=== PATIENT | male | born 1955 | race Caucasian/White ===

== ENCOUNTER 2020-01-10 20:58 | Emergency (ER) | payer MEDICARE, OTHER ==
[2020-01-10] MEDS: Sodium Chloride 0.9% 1,000 ML IV ONE ×2 (21:30→23:55)
[2020-01-10] MEDS: Ondansetron 4 MG/2 ML SDV IVPUSH ONE (21:31)
[2020-01-10] MEDS: cefTRIAXone 1 GM in Sodium Chloride 0.9% 100 ML IV ONE (23:10)
--- NOTE | 2020-01-10 23:46 | EDM.PDOC ---
ED HPI GENERAL MEDICAL PROBLEM - General Chief Complaint: General Stated Complaint: NAUSEA, FEVER Time Seen by Provider: 01/10/20 21:01 Source of Information: Reports: Patient, EMS History Limitations: Reports: No Limitations - History of Present Illness INITIAL COMMENTS - FREE TEXT/NARRATIVE: Pt presents with fever, N/V/D and upper abdominal pain for past 3 days Pt worse tonight Fever to 101 per EMS Afebrile in ER Pt states pain extends into back No chest pain No cough No SOB No previous hx/o same No travel hx No dysuria No trauma Onset: Gradual Duration: Day(s): Location: Reports: Abdomen Quality: Reports: Dull Severity: Moderate Associated Symptoms: Reports: Fever/Chills, Nausea/Vomiting, Other (Diarrhea) Treatments [employer]TAIN: Reports: Acetaminophen - Related Data Allergies Allergy/AdvReac Type Severity Reaction Status Date / Time Penicillins Allergy Swelling Verified 01/10/20 21:24 Home Meds: Home Meds Gabapentin [Neurontin] 600 mg PO 5XDAY 08/06/16 [History] Multivitamin [Daily Multiple Vitamin] 1 tab PO DAILY 08/06/16 [History] Simvastatin [Zocor] 20 mg PO BEDTIME 08/06/16 [History] oxyCODONE HCl [Oxycodone HCl] 5 mg PO Q6HR PRN 08/06/16 [History] Nitroglycerin [IJP: Nitroglycerin] 0.4 mg SL ASDIRECTED PRN #30 tablet, sublingual 08/09/16 [Rx] Cholecalciferol (Vitamin D3) [Vitamin D3] 1,000 unit PO DAILY 01/10/20 [History] Losartan Potassium 100 mg PO DAILY 01/10/20 [History] Mecobalamin [B12 Active] 1,000 mcg PO DAILY 01/10/20 [History] Meloxicam [Mobic] 7.5 mg PO BID PRN 01/10/20 [History] Metoprolol Tartrate [Lopressor] 50 mg PO BID 01/10/20 [History] Non-Formulary Medication [NF Drug] 0.5 each SQ WEEKLY 01/10/20 [History] [place]-3S/DHA/Epa/Fish Oil [[place]-3 Fish Oil 1,000 mg Sfgl] 1 each PO BID [History] Omeprazole 20 mg PO DAILY 01/10/20 [History] Pramipexole [Mirapex] 0.25 mg PO BID 01/10/20 [History] Primidone 50 mg PO BEDTIME 01/10/20 [History] hydrOXYzine HCL [Hydroxyzine HCl] 25 mg PO Q6HR PRN 01/10/20 [History] Past Medical History HEENT History: Reports: Impaired Vision, Sinusitis Cardiovascular History: Reports: High Cholesterol, Hypertension Respiratory History: Reports: Sleep Apnea Gastrointestinal History: Reports: Diverticulosis, GERD Musculoskeletal History: Reports: Arthritis, Back Pain, Chronic Neurological History: Reports: Neuropathy, Diabetic, Other (See Below) Other Neuro History: neuropathy fingers, toes, feet Endocrine/Metabolic History: Reports: Diabetes, Type II, Obesity/BMI 30+ - Past Surgical History HEENT Surgical History: Reports: Tonsillectomy GI Surgical History: Reports: Colonoscopy Male Surgical History: Reports: Other (See Below) Musculoskeletal Surgical History: Reports: Knee Replacement, Other (See Below) Other Musculoskeletal Surgeries/Procedures:: bilat knee replacements, arthritis in bilat shoulders, back pain, R thumb tendon repair Social & Family History - Tobacco Use Smoking Status *Q: Never Smoker Second Hand Smoke Exposure: No - Caffeine Use Caffeine Use: Reports: None - Alcohol Use Days Per Week of Alcohol Use: 7 Number of Drinks Per Day: 6 Total Drinks Per Week: 42 - Recreational Drug Use Recreational Drug Use: No ED ROS GENERAL - Review of Systems Review Of Systems: See Below Constitutional: Reports: Fever HEENT: Reports: No Symptoms Respiratory: Reports: No Symptoms Cardiovascular: Reports: No Symptoms GI/Abdominal: Reports: Abdominal Pain, Diarrhea, Nausea, Vomiting : Reports: No Symptoms Skin: Reports: No Symptoms Neurological: Reports: No Symptoms ED EXAM, GENERAL - Physical Exam Exam: See Below Exam Limited By: No Limitations General Appearance: Moderate Distress Ear Exam: Bilateral Ear: Other (No icterus) Throat/Mouth: Normal Oropharynx Neck: Supple Respiratory/Chest: Lungs Clear Cardiovascular: Regular Rate, Rhythm GI/Abdominal: Soft, Tender (Tender across upper abdomen No rebound No guarding Mildly distended) Neurological: Alert, Oriented Course - Vital Signs Last Recorded V/S: Last Vital Signs Temp 98 F 01/10/20 23:17 Pulse 103 H 01/10/20 23:17 Resp 20 01/10/20 23:17 BP 133/82 05/05/20 23:17 Pulse Ox 98 01/10/20 23:17 - Orders/Labs/Meds Orders: Active Orders 24 hr Category Date Time Status Abdomen Pelvis wo Cont [CT] Stat Exams 01/10/20 21:56 Taken Chest 1V Frontal [CR] Stat Exams 01/10/20 21:01 Taken CULTURE BLOOD [BC] Stat Lab 01/10/20 21:01 Ordered CULTURE BLOOD [BC] Stat Lab 01/10/20 21:01 Ordered UA RFX LAKISHA AND CULT IF INDIC [URIN] Stat Lab 01/10/20 21:02 Ordered Sodium Chloride 0.9% [Normal Saline] 1,000 ml Med 01/10/20 23:38 Ordered IV .BOLUS Blood Culture x2 Reflex Set [OM.PC] Stat Oth 01/10/20 21:01 Ordered Labs: Laboratory Tests 01/10/20 01/10/20 01/10/20 Range/Units 21:05 21:05 21:05 WBC 10.2 (4.0-10.2) K/uL RBC 3.71 L (4.33-5.41) M/uL Hgb 12.6 L (13.1-16.8) g/dL Hct 37.5 L (39.0-49.0) % MCV 101.1 H (84.0-98.0) fL MCH 34.0 H (28.2-33.3) pg MCHC 33.6 (31.7-36.0) g/dL RDW 13.3 (11.2-14.1) % Plt Count 195 (150-350) K/uL Neut % (Auto) 86.3 H (45.0-80.0) % Lymph % (Auto) 7.8 L (10.0-50.0) % [place] % (Auto) 5.5 (2.0-14.0) % Eos % (Auto) 0.2 (0.0-5.0) % Baso % (Auto) 0.2 (0.0-2.0) % Neut # (Auto) 8.82 H (1.40-7.00) K/uL Lymph # (Auto) 0.80 (0.50-3.50) K/uL [place] # (Auto) 0.56 (0.00-1.00) K/uL Eos # (Auto) 0.02 (0.00-0.50) K/uL Baso # (Auto) 0.02 (0.00-0.20) K/uL Sodium 130 L (136-145) mmol/L Potassium 4.3 (3.5-5.1) mmol/L Chloride 93 L (98-107) mmol/L Carbon Dioxide 19.9 L (21.0-32.0) mmol/L BUN 10 (7-18) mg/dL Creatinine 1.33 H (0.51-1.17) mg/dL Est Cr Clr Drug Dosing 61.59 mL/min Estimated GFR (MDRD) 54 mL/min Glucose 612 H* (74-106) mg/dL Lactic Acid 7.1 H (0.4-2.0) mmol/L Calcium 8.4 L (8.5-10.1) mg/dL Total Bilirubin 3.8 H (0.2-1.0) mg/dL AST 280 H (15-37) U/L ALT 148 H (12-78) U/L Alkaline Phosphatase 151 H (46-116) IU/L Total Protein 6.4 (6.4-8.2) g/dL Albumin 2.8 L (3.4-5.0) g/dL Meds: Medications Discontinued Medications Generic Name Dose Route Start Last Admin Trade Name Garrettq PRN Reason Stop Dose Admin Sodium Chloride 1,000 mls @ 1,000 mls/hr 01/10/20 21:02 01/10/20 21:30 Normal Saline IV 01/10/20 22:01 1,000 mls/hr .BOLUS ONE Administration Ceftriaxone Sodium 1 gm/ 100 mls @ 200 mls/hr 01/10/20 23:04 01/10/20 23:10 Sodium Chloride IV 01/10/20 23:33 200 mls/hr ONETIME ONE Administration Ondansetron HCl 4 mg 01/10/20 21:11 01/10/20 21:31 Zofran IVPUSH 01/10/20 21:12 4 mg ONETIME ONE Administration - Re-Assessments/Exams Free Text/Narrative Re-Assessment/Exam: 01/10/20 23:44 See lab Elevated LFT's and elevated lactic acid CT: Acute cholecystitis Pt given IVF and 1 gm IV Rocephin in ER D/W Dr Young On-call hospitalist [facility] Will accept in transfer Transfer via EMS Departure - Departure Time of Disposition: 23:45 Disposition: DC/[facility]fer to [facility] 02 Clinical Impression: Acute cholecystitis - Discharge Information Referrals: PCP,Unknown [Primary Care Provider] - Sepsis Event Note - Evaluation Sepsis Screening Result: Possible Sepsis Risk - Focused Exam Vital Signs: Vital Signs Temp Pulse Resp BP Pulse Ox 01/10/20 23:17 98 F 103 H 20 133/82 98 01/10/20 23:00 104 H 22 H 116/97 H 98 01/10/20 22:20 102 H 22 H 153/82 H 97 01/10/20 21:55 102 H 20 133/78 96 01/10/20 21:40 104 H 18 129/79 95 01/10/20 21:20 98 F 106 H 18 127/72 96 01/10/20 21:00 99 F 110 H 18 140/80 95 Date Exam was Performed: 01/10/20 Time Exam was Performed: 23:39 - My Orders Last 24 Hours: My Active Orders 01/10/20 21:01 Chest 1V Frontal [CR] Stat CULTURE BLOOD [BC] Stat CULTURE BLOOD [BC] Stat Blood Culture x2 Reflex Set [OM.PC] Stat 01/10/20 21:02 UA RFX LAKISHA AND CULT IF INDIC [URIN] Stat 01/10/20 21:56 Abdomen Pelvis wo Cont [CT] Stat 01/10/20 23:38 Sodium Chloride 0.9% [Normal Saline] 1,000 ml IV .BOLUS - Assessment/Plan Last 24 Hours: My Active Orders 01/10/20 21:01 Chest 1V Frontal [CR] Stat CULTURE BLOOD [BC] Stat CULTURE BLOOD [BC] Stat Blood Culture x2 Reflex Set [OM.PC] Stat 01/10/20 21:02 UA RFX LAKISHA AND CULT IF INDIC [URIN] Stat 01/10/20 21:56 Abdomen Pelvis wo Cont [CT] Stat 01/10/20 23:38 Sodium Chloride 0.9% [Normal Saline] 1,000 ml IV .BOLUS
[2020-01-10 23:57] VITALS: BP 125/73; PULSE 102
[2020-01-11] MEDS: HYDROmorphone 1 MG/ML Syringe IVPUSH ONE (00:27)
== END 2020-01-11 00:35 ==
LOC: SUPCPDRO 20:58 → LL.ED 20:58
DX: K81.0 Acute cholecystitis (principal); E78.00 Pure hypercholesterolemia, unspecified; I10 Essential (primary) hypertension; K21.9 Gastro-esophageal reflux disease without esophagitis; E11.9 Type 2 diabetes mellitus without complications; E66.9 Obesity, unspecified; E11.40 Type 2 diabetes mellitus with diabetic neuropathy, unspecified; Z68.41 Body mass index [BMI] 40.0-44.9, adult; Z88.0 Allergy status to penicillin
CPT/HCPCS: 36415; 71045; 74176; 80053; 81003; 83605; 85025; 96361; 96365; 96375; 99285-25; J0696; J1170; J2405; J7030; J7050

== ENCOUNTER 2020-06-27 18:52 | Emergency (ER) | payer MEDICARE, BC ==
[2020-06-27 18:56] VITALS: BP 151/73; PULSE 74
[2020-06-27] MEDS ORDERED: Sodium Chloride 0.9% 1,000 ML IV ONE (18:57)
[2020-06-27] MEDS ORDERED: Ondansetron 4 MG/2 ML SDV IVPUSH ONE (18:57)
[2020-06-27] MEDS ORDERED: Morphine 2 MG/ML SYRINGE IVPUSH ONE (19:24)
[2020-06-27 19:45] LABS: CHLORIDE,CL 93 mmol/L (98-107); SODIUM,NA 135 mmol/L (136-145)
[2020-06-27] MEDS ORDERED: Calcium Gluconate 10% 1 GM/10 ML SDV IVPUSH ONE (19:57)
--- NOTE | 2020-06-27 20:28 | EDM.PDOC ---
ED HPI GENERAL MEDICAL PROBLEM - General Chief Complaint: General Stated Complaint: fatigue, diarrhea, nausea Time Seen by Provider: 06/27/20 19:05 Source of Information: Reports: Patient History Limitations: Reports: No Limitations - History of Present Illness INITIAL COMMENTS - FREE TEXT/NARRATIVE: Pt presents to ER with fatigue, weakness and diarrhea Pt has had weakness for several weeks Was started on Gabapentin recently Diarrhea over past several days No fever No cough No chest pain Onset: Gradual Duration: Day(s):, Getting Worse Location: Reports: Abdomen, Generalized Bilateral Lower Leg Pain Score (Numeric/FACES): 10 - Related Data Allergies Allergy/AdvReac Type Severity Reaction Status Date / Time Penicillins Allergy Swelling Verified 01/10/20 21:24 Home Meds: Home Meds Gabapentin [Neurontin] 600 mg PO 08/06/16 [History] Multivitamin [Daily Multiple Vitamin] 1 tab PO DAILY 08/06/16 [History] Simvastatin [Zocor] 20 mg PO BEDTIME 08/06/16 [History] oxyCODONE HCl [Oxycodone HCl] 5 mg PO Q6HR PRN 08/06/16 [History] Nitroglycerin [IJP: Nitroglycerin] 0.4 mg SL ASDIRECTED PRN #30 tablet, sublingual 08/09/16 [Rx] Cholecalciferol (Vitamin D3) [Vitamin D3] 1,000 unit PO DAILY 01/10/20 [History] Losartan Potassium 100 mg PO DAILY 01/10/20 [History] Mecobalamin [B12 Active] 1,000 mcg PO DAILY 01/10/20 [History] Meloxicam [Mobic] 7.5 mg PO BID PRN 01/10/20 [History] Metoprolol Tartrate [Lopressor] 50 mg PO BID 01/10/20 [History] Non-Formulary Medication [NF Drug] 0.5 each SQ WEEKLY 01/10/20 [History] [place]-3S/DHA/Epa/Fish Oil [[place]-3 Fish Oil 1,000 mg Sfgl] 1 each PO BID 01/10/20 [History] Omeprazole 20 mg PO DAILY 01/10/20 [History] Pramipexole [Mirapex] 0.25 mg PO BID 01/10/20 [History] Primidone 50 mg PO BEDTIME 01/10/20 [History] hydrOXYzine HCL [Hydroxyzine HCl] 25 mg PO Q6HR PRN 01/10/20 [History] Past Medical History HEENT History: Reports: Impaired Vision, Sinusitis Cardiovascular History: Reports: High Cholesterol, Hypertension Respiratory History: Reports: Sleep Apnea Gastrointestinal History: Reports: Diverticulosis, GERD Musculoskeletal History: Reports: Arthritis, Back Pain, Chronic Neurological History: Reports: Neuropathy, Diabetic, Other (See Below) Other Neuro History: neuropathy fingers, toes, feet Endocrine/Metabolic History: Reports: Diabetes, Type II, Obesity/BMI 30+ - Past Surgical History HEENT Surgical History: Reports: Tonsillectomy GI Surgical History: Reports: Colonoscopy Male Surgical History: Reports: Other (See Below) Musculoskeletal Surgical History: Reports: Knee Replacement, Other (See Below) Other Musculoskeletal Surgeries/Procedures:: bilat knee replacements, arthritis in bilat shoulders, back pain, R thumb tendon repair Social & Family History - Caffeine Use Caffeine Use: Reports: None ED ROS GENERAL - Review of Systems Review Of Systems: See Below Constitutional: Reports: Malaise, Weakness, Fatigue HEENT: Reports: No Symptoms Respiratory: Reports: No Symptoms Cardiovascular: Reports: No Symptoms Endocrine: Reports: Fatigue GI/Abdominal: Reports: Abdominal Pain, Diarrhea Musculoskeletal: Reports: No Symptoms Skin: Reports: No Symptoms Neurological: Reports: Weakness ED EXAM, GENERAL - Physical Exam Exam: See Below Exam Limited By: No Limitations General Appearance: Alert, WD/WN, Mild Distress Throat/Mouth: Normal Oropharynx Neck: Supple Respiratory/Chest: Lungs Clear Cardiovascular: Regular Rate, Rhythm GI/Abdominal: Soft, Other (Mildly tender diffusely) Extremities: Pedal Edema Neurological: No Motor/Sensory Deficits Psychiatric: Normal Affect, Normal Mood Course - Vital Signs Last Recorded V/S: Last Vital Signs Temp 96.7 F L 06/27/20 18:54 Pulse 74 06/27/20 18:54 Resp 14 06/27/20 18:54 BP 151/73 H 06/27/20 18:54 Pulse Ox 99 06/27/20 18:54 - Orders/Labs/Meds Orders: Active Orders 24 hr Category Date Time Status CXR [Chest 1V Frontal] [CR] Stat Exams 06/27/20 18:58 Taken Isolation [COMM] Routine Oth 06/27/20 18:58 Active Labs: Laboratory Tests 10/21/20 10/21/20 Range/Units 19:25 19:25 WBC 6.8 (4.0-10.2) K/uL RBC 4.28 L (4.33-5.41) M/uL Hgb 12.6 L (13.1-16.8) g/dL Hct 37.2 L (39.0-49.0) % MCV 86.9 D (84.0-98.0) fL MCH 29.4 (28.2-33.3) pg MCHC 33.9 (31.7-36.0) g/dL RDW 18.4 H (11.2-14.1) % Plt Count 225 (150-350) K/uL Neut % (Auto) 65.7 (45.0-80.0) % Lymph % (Auto) 25.0 (10.0-50.0) % [place] % (Auto) 8.5 (2.0-14.0) % Eos % (Auto) 0.4 (0.0-5.0) % Baso % (Auto) 0.4 (0.0-2.0) % Neut # (Auto) 4.48 (1.40-7.00) K/uL Lymph # (Auto) 1.71 (0.50-3.50) K/uL [place] # (Auto) 0.58 (0.00-1.00) K/uL Eos # (Auto) 0.03 (0.00-0.50) K/uL Baso # (Auto) 0.03 (0.00-0.20) K/uL Sodium 135 L (136-145) mmol/L Potassium 3.8 (3.5-5.1) mmol/L Chloride 93 L (98-107) mmol/L Carbon Dioxide 28.9 (21.0-32.0) mmol/L BUN 8 (7-18) mg/dL Creatinine 1.06 (0.51-1.17) mg/dL Est Cr Clr Drug Dosing 76.26 mL/min Estimated GFR (MDRD) > 60 mL/min Glucose 116 H (74-106) mg/dL Calcium 6.7 L D (8.5-10.1) mg/dL Total Bilirubin 0.6 (0.2-1.0) mg/dL AST 74 H (15-37) U/L ALT 51 (12-78) U/L Alkaline Phosphatase 201 H (46-116) IU/L Total Protein 6.9 (6.4-8.2) g/dL Albumin 3.1 L (3.4-5.0) g/dL Meds: Medications Discontinued Medications Generic Name Dose Route Start Last Admin Trade Name Carlos PRN Reason Stop Dose Admin Calcium Gluconate 1 gm 06/27/20 19:57 06/27/20 20:09 Calcium Gluconate IVPUSH 06/27/20 19:58 1 gm ONETIME ONE Administration Sodium Chloride 1,000 mls @ 999 mls/hr 06/27/20 18:57 06/27/20 19:15 Normal Saline IV 06/27/20 19:57 999 mls/hr .BOLUS ONE Administration Morphine Sulfate 2 mg 06/27/20 19:24 06/27/20 19:34 Morphine IVPUSH 06/27/20 19:25 2 mg ONETIME ONE Administration Ondansetron HCl 8 mg 06/27/20 18:57 06/27/20 19:15 Zofran IVPUSH 06/27/20 18:58 8 mg ONETIME ONE Administration - Re-Assessments/Exams Free Text/Narrative Re-Assessment/Exam: 06/27/20 20:25 See lab Pt given IVF and IV Calcium Pt does not desire admit at this time Pt to recheck in clinic to recheck status and calcium Departure - Departure Time of Disposition: 20:30 Disposition: Home, Self-Care 01 Clinical Impression: Hypocalcemia Diarrhea Qualifiers: Diarrhea type: unspecified type Qualified Code(s): R19.7 - Diarrhea, unspecified - Discharge Information *PRESCRIPTION DRUG MONITORING PROGRAM REVIEWED*: Not Applicable *COPY OF PRESCRIPTION DRUG MONITORING REPORT IN PATIENT MARIO: Not Applicable Instructions: Diarrhea, Adult, Hypocalcemia, Adult Additional Instructions: Follow up in clinic in 1-2 days To ER if worse Await Covid testing Sepsis Event Note (ED) - Evaluation Sepsis Screening Result: No Definite Risk - Focused Exam Vital Signs: Vital Signs Temp Pulse Resp BP Pulse Ox 06/27/20 18:54 96.7 F L 74 14 151/73 H 99 - My Orders Last 24 Hours: My Active Orders 06/27/20 18:58 CXR [Chest 1V Frontal] [CR] Stat Isolation [COMM] Routine - Assessment/Plan Last 24 Hours: My Active Orders 06/27/20 18:58 CXR [Chest 1V Frontal] [CR] Stat Isolation [COMM] Routine
[2020-06-27] MEDS ORDERED: Calcium Carbonate 500 MG Tab.Chew PO ONE (20:29)
== END 2020-06-27 21:20 | disposition home or self-care (01) ==
LOC: LL.ED 18:52
DX: E83.51 Hypocalcemia (principal); R19.7 Diarrhea, unspecified; E78.00 Pure hypercholesterolemia, unspecified; I10 Essential (primary) hypertension; K21.9 Gastro-esophageal reflux disease without esophagitis; E11.40 Type 2 diabetes mellitus with diabetic neuropathy, unspecified; M19.90 Unspecified osteoarthritis, unspecified site; E66.9 Obesity, unspecified; Z88.0 Allergy status to penicillin; Z79.899 Other long term (current) drug therapy; Z20.828 Contact with and (suspected) exposure to other viral communicable diseases
CPT/HCPCS: 36415; 71045; 80053; 85025; 87804; 96374; 96375; 99285; A9270; J0610; J2270; J2405; J7030; U0002; 99283

== ENCOUNTER 2020-10-29 18:30 | Inpatient (IN) | payer MEDICARE, BC ==
[~2020-10-29 18:30] MED LIST: Iopamidol 755 Mg/ML 100 ML Bottle IVPUSH ONE
[2020-10-29] MEDS ORDERED: Ticagrelor 90 MG Tab PO ONE (18:39)
[2020-10-29] MEDS ORDERED: Aspirin 81 MG Tab.Chew CHEW ONE (18:39)
[2020-10-29] MEDS ORDERED: Famotidine 20 MG/2 ML SDV IVPUSH ONE (18:39)
--- NOTE | 2020-10-29 18:39 | EDM.PDOC ---
ED HPI GENERAL MEDICAL PROBLEM - General Chief Complaint: Cardiovascular Problem Stated Complaint: SOB, weak Time Seen by Provider: 10/29/20 18:30 Source of Information: Reports: Patient, Family (), Old Records ([facility] chart/EMR) History Limitations: Reports: No Limitations - History of Present Illness INITIAL COMMENTS - FREE TEXT/NARRATIVE: The patient was brought to the emergency room via private automobile by his for evaluation of a 3-week history of increasing weakness and progressive dyspnea over the last 3-4 weeks. He also complains of 3/10 left-sided chest pressure with no history of radiation during the last few days. Possible additional mild left-sided rib pain secondary to a minor fall in his bathroom about 3 weeks ago with dyspnea starting prior to this fall. He has not taken any medications for her symptoms to this point. The patient denies any heart flutter, dizziness, orthostasis, orthopnea, diaphoresis,or any other anginal- type symptoms, although some recent decreased exercise tolerance secondary to his dyspnea above with low baseline activity level. No recent history of abdominal pain, heartburn, nausea, diarrhea, melena, gross hematochezia, or any food intolerance, including fatty foods, etc. with normal bowel movement earlier today. He denies any gross hematuria, colic, or other UTI symptoms. The patient also denies any recent fever, cough, wheezing, etc.. Onset: Gradual Duration: Week(s): (As above), Getting Worse Location: Reports: Chest. Denies: Head, Face, Neck, Abdomen, Back, Pelvis, Upper Extremity, Left, Upper Extremity, Right, Radiates to Quality: Reports: Pressure, Same as Previous Episode Severity: Mild Improves with: Reports: Rest Worsens with: Reports: Movement (Activity). Denies: Breathing Context: Reports: Trauma (Minor as above), Other (As above). Denies: Sick Contact Associated Symptoms: Reports: Chest Pain, Shortness of Breath, Weakness. Denies: Confusion, Cough, cough w sputum, Diaphoresis, Fever/Chills, Headaches, Loss of Appetite, Malaise, Nausea/Vomiting, Rash, Seizure, Syncope Treatments REGISTRATION REPRESENTATIVE: Reports: Other (see below) (None) Left Chest Pain Score (Numeric/FACES): 3 - Related Data Allergies Allergy/AdvReac Type Severity Reaction Status Date / Time Penicillins Allergy Swelling Verified 10/29/20 18:36 Home Meds: Home Meds Multivitamin [Daily Multiple Vitamin] 1 tab PO DAILY 08/06/16 [History] Simvastatin [Zocor] 20 mg PO BEDTIME 08/06/16 [History] oxyCODONE HCl [Oxycodone HCl] 5 mg PO Q6HR PRN 08/06/16 [History] Nitroglycerin [IJP: Nitroglycerin] 0.4 mg SL ASDIRECTED PRN #30 tablet, sublingual 08/09/16 [Rx] Losartan Potassium 100 mg PO DAILY 01/10/20 [History] Mecobalamin [B12 Active] 1,000 mcg PO DAILY 01/10/20 [History] Metoprolol Tartrate [Lopressor] 50 mg PO Q12HR 01/10/20 [History] Notrees-3S/DHA/Epa/Fish Oil [Notrees-3 Fish Oil 1,000 mg Sfgl] 1 each PO Q12HR 01/10/20 [History] Omeprazole 20 mg PO Q12HR 01/10/20 [History] Pramipexole [Mirapex] 0.25 mg PO Q12HR 01/10/20 [History] Primidone 50 mg PO Q12HR 01/10/20 [History] hydrOXYzine HCL [Hydroxyzine HCl] 25 mg PO Q6HR PRN 01/10/20 [History] Gabapentin [Neurontin] 600 mg PO 5XDAY@00,08,12,16,20 10/29/20 [History] metFORMIN [Glucophage] 3 tab PO DAILY 10/29/20 [History] Past Medical History HEENT History: Reports: Impaired Vision, Sinusitis, Other (See Below). Denies: Allergic Rhinitis, Cataract, Glaucoma, Hard of Hearing, Macular Degeneration, Retinal Detachment Other HEENT History: Patient wears reading glasses. No diabetic retinopathy. Chronic bilateral tinnitus. Cardiovascular History: Reports: Arrhythmia, CAD, Cardiomyopathy, Heart Failure, High Cholesterol, Hypertension, [place], Syncope, Other (See Below). Denies: Afib, Aneurysm, Blood Clots/VTE/DVT, Bypass, Heart Murmur, Pacemaker, PTCA, Pulmonary Hypertension, PVD, Stents Other Cardiovascular History: First-degree AV block. Non-STEMI on 08/07/2016 wi no procedures performed, including angiogram, etc.. Dyslipidemia. Recurrent syncopal episodes in 2016 possibly secondary to his heart disease as above. Respiratory History: Reports: Bronchitis, Recurrent, Intubation, Previous, Sleep Apnea, SOB, Other (See Below). Denies: Asthma, COPD, Intubation, Difficult, PE, Pneumonia, Recurrent, Pneumothorax, Pulmonary Fibrosis, TB Other Respiratory History: Patient does not use CPAP. Gastrointestinal History: Reports: Cholelithiasis, Colon Polyp, Diverticulosis, GERD, Other (See Below). Denies: Celiac Disease, Chronic Constipation, Chronic Diarrhea, Fecal Incontinence, Gastritis, GI Bleed, Hepatitis, Hiatal Hernia, Inflammatory Bowel Disease, Irritable Bowel Syndrome, Jaundice, Pancreatitis, PUD Other Gastrointestinal History: Chronic ascites. Necrotic cholelithiasis with borderline sepsis in January 2020. Recurrent multiple colonic polypsbenign?. Benign hepatic cysts by CT scan. Genitourinary History: Reports: BPH, Chronic Renal Insuffiency, Diabetic Nephropathy, Prostate Disorder, Urinary Incontinence. Denies: Acute Renal Failure, Renal Calculus, STD, UTI, Recurrent Musculoskeletal History: Reports: Arthritis, Back Pain, Chronic, Neck Pain, Chronic, Osteoarthritis. Denies: Amputation, Fracture, Gout, Osteoporosis, RA, SLE Neurological History: Reports: Neuropathy, Diabetic, Neuropathy, Peripheral, Other (See Below). Denies: Alzheimers Disease, Cerebral Aneurysms, Concussion, CVA, Headaches, Chronic, Head Trauma, Migraines, MS, Parkinson's, Seizure, TIA, Vertigo Other Neuro History: Benign resting tremor. Psychiatric History: Reports: Addiction, Anxiety, Depression, Other (See Below). Denies: Abuse, Victim of, ADD, ADHD, Dementia, Psych Hospitalization(s), PTSD, Suicide Attempt, Suicidal Ideation Other Psychiatric History: Chronic narcotic use secondary to chronic pain syndrome and neuropathy. Endocrine/Metabolic History: Reports: Diabetes, Type II, Obesity/BMI 30+, Other (See Below). Denies: Diabetes, Type I, Diabetes Mellitus, Type 3c, Hypothyroidism, IDDM, Osteopenia, Osteoporosis Other Endocrine/Metabolic History: Morbid obesity. Hypocalcemia. Hyponatremia. Hematologic History: Denies: Anemia, Blood Transfusion(s), Iron Deficiency Immunologic History: Reports: None. Denies: AIDS, HIV, SLE Oncologic (Cancer) History: Reports: None. Denies: Basal Cell Carcinoma, Colon, Hodgkin's Lymphoma, Leukemia, Lymphoma, Malignant Melanoma, Non-Hodgkin's Lymphoma, Prostate, Squamous Cell Carcinoma Dermatologic History: Reports: Other (See Below). Denies: Eczema, Psoriasis, Venous Stasis Dermatitis Other Dermatologic History: Dry skin - Infectious Disease History Infectious Disease History: Reports: Chicken Pox, Measles, Mumps. Denies: C-Difficile, Meningitis, Mononucleosis, MRSA, Novel Coronavirus, Pertussis (Whooping Cough), Rheumatic Fever, Rubella, Scarlet Fever, Shingles, TB, VRE - Past Surgical History Head Surgeries/Procedures: Reports: None HEENT Surgical History: Reports: Adenoidectomy, Oral Surgery, Tonsillectomy, Other (See Below). Denies: Cataract Surgery, Detached Retina, Eye Surgery, Laser Surgery, LASIK, Myringotomy w Tube(s), Naso-Sinus Surgery Other HEENT Surgeries/Procedures: [place] teeth extraction x4. Additional teeth extractions. Tonsillectomy and adenoidectomy at age 4. Cardiovascular Surgical History: Reports: None. Denies: Varicose Respiratory Surgical History: Reports: None. Denies: Lung Biopsies, Thoracentesis GI Surgical History: Reports: Cholecystectomy, Colonoscopy, Polypectomy, Other (See Below). Denies: Appendectomy, EGD, Hernia, Abdominal, Hernia, Inguinal, Hernia Repair/Other Other GI Surgeries/Procedures: Multiple polypectomies for benign disease with last colonoscopy in 2018. Male Surgical History: Reports: Circumcision, Other (See Below). Denies: TURP-Transurethral Resection of Prostate, Vasectomy Other Male Surgeries/Procedures: Circumcision as an infant. Bilateral hydrocele repair in about 2009. Endocrine Surgical History: Reports: None. Denies: Thyroid Biopsy Neurological Surgical History: Reports: None. Denies: C-Spine, Discectomy, Laminectomy, Lumbar Spine, Spinal Fusion, Thoracic Spine, Vertebroplasty Musculoskeletal Surgical History: Reports: Joint Replacement, Knee Replacement, Other (See Below). Denies: Arthroscopic Procedure, Carpal Tunnel, Ganglion Cyst, ORIF, Shoulder Surgery Other Musculoskeletal Surgeries/Procedures:: Bilateral TKA in 2014. Right thumb tendon repair in about 1979. Oncologic Surgical History: Reports: None Dermatological Surgical History: Reports: None - Past Imaging History Past Imaging History: Reports: CAT Scan (CT of the abdomen and pelvis on 01/10/2020 and 08/02/2014.). Denies: Angiography, Cardiac Echo Social & Family History - Family History HEENT: Reports: None. Denies: Glaucoma, Macular Degeneration, Retinal Detachm ent Cardiac: Reports: Arrhythmia, Hypertension, Other (See Below). Denies: Afib, AICD, Aneurysm, Blood Clots/VTE/DVT, CAD, Cardiomyopathy, Heart Failure, High Cholesterol, [place], Pacemaker, PVD/COD, Syncope Other Cardiac Family History: Brother with hyperlipidemia. Brother with ventricular tachycardia on subsequent asystole? Respiratory: Reports: None. Denies: Asthma, COPD, PE, Pneumothorax, Sleep Apnea GI: Reports: Colon Polyps, Other (See Below). Denies: Celiac Disease, Cholelithiasis, GERD, GI bleed, Inflammatory Bowel Disease, Irritable Bowel Syndrome, PUD Other GI Family History: Mother with colon cancer as below. : Reports: None. Denies: Renal Calculus, Renal Disease/Insufficiency OBGYN: Reports: None. Denies: Endometriosis, Recurrent Spontaneous Musculoskeletal: Reports: None. Denies: Arthritis, Gout, Osteoarthritis, RA, SLE Neurological: Reports: CVA, Parkinson's, Other (See Below). Denies: Alzheimers Disease, Dementia, Migraines, MS, Seizure, TIA Other Neurological Family History: Father with Parkinson's disease. Brother with recurrent CVA. Psychiatric: Denies: Abuse, Victim of, ADD, ADHD, Anxiety, Depression, Psych Hospitalization(s), PTSD, Suicide Attempt Endocrine/Metabolic: Reports: None. Denies: Diabetes, Type I, Diabetes, type II, Hypothyroidism, IDDM Hematologic: Reports: None. Denies: Anemia, SLE Immunologic: Reports: None. Denies: AIDS, Immunosuppression, SLE Dermatologic: Reports: None. Denies: Eczema, Psoriasis Oncologic: Reports: Colon, Lymphoma, Ovarian, Skin, Uterine, Other (See Below). Denies: Hodgkin's Lymphoma, Leukemia, Non-Hodgkin's Lymphoma, Prostate Other Oncologic Family History: Sister with fatal lymphoma in her 60s. Another sister with unknown type of skin cancer and breast cancer. Mother with multiple cancers including breast cancer, ovarian cancer and colon cancer x2 with fatal colon surgery. - Tobacco Use Tobacco Use Status *Q: Never Tobacco User Tobacco Use Within Last Twelve Months: No Used Tobacco, but Quit: No Smoking Cessation Information Provided To Patient: No Second Hand Smoke Exposure: No Second Hand Smoke Education Provided: No - Caffeine Use Caffeine Use: Reports: None. Denies: Coffee, Energy Drinks, Soda, Tea - Alcohol Use Alcohol Use History: Yes Days Per Week of Alcohol Use: 7 Number of Drinks Per Day: 4 Number of Drinks Per Day Comment: 4 shots of whiskey. No previous DWIs, problems with alcohol abuse, etc. Total Drinks Per Week: 28 Alcohol Use in Last Twelve Months: Yes - Recreational Drug Use Recreational Drug Use: No Drug Use in Last 12 Months: No Recreational Drug Type: Denies: Amphetamines (Speed), Cocaine, Heroin, Inhalants (Glues, Solvents, Aerosols), LSD (Acid), Marijuana/Hashish, Methamphetamine, Morphine, Oxycodone - Living Situation & Occupation Living situation: Reports: (1982, 2 children), with Family () Occupation: Disabled (Disabled secondary to his chronic neuropathy, osteoarthritis, chronic pain syndrome. Retired [employer].) ED ROS GENERAL - Review of Systems Review Of Systems: Comprehensive ROS is negative, except as noted in HPI. ED EXAM, GENERAL - Physical Exam Exam: See Below Exam Limited By: No Limitations General Appearance: Alert, WD/WN, No Apparent Distress, Anxious (Moderate) Eye Exam: Bilateral Eye: EOMI, Normal Inspection (No glasses. No vertigo or nystagmus.), PERRL Ears: Normal External Exam, Normal Canal, Hearing Grossly Normal, Normal TMs Nose: Normal Inspection, Normal Mucosa, No Blood Throat/Mouth: Normal Inspection, Normal Lips, Normal Teeth, Normal Gums, Normal Oropharynx, Normal Voice, No Airway Compromise. No: Dysphagia, Perioral Cyanosis Neck: Normal Inspection, Supple, Non-Tender, Full Range of Motion. No: Carotid Bruit, Lymphadenopathy (L), Lymphadenopathy (R), Thyromegaly Respiratory/Chest: No Respiratory Distress, No Accessory Muscle Use, Chest Non- Tender, Rales (Mild bilateral basilar), Other (No evidence of left lateral chest wall injury including crepitation, ecchymosis, swelling, localized tenderness, etc.). No: Rhonchi, Wheezing, Pleural Rub, Retractions Cardiovascular: Normal Peripheral Pulses, Regular Rate, Rhythm, No Gallop, No JVD, No Murmur, No Rub. No: No Edema (Dependent edema as below), Gallop/S3, Gallop/S4, Friction Rub Peripheral Pulses: 2+: Radial (L), Radial (R), Dorsalis Pedis (L), Dorsalis Pedis (R) GI/Abdominal: Normal Bowel Sounds, Soft, Non-Tender, No Organomegaly, No Distention, No Abnormal Bruit, No Mass, Pelvis Stable, Other (Obese). No: Guarding (Male) Exam: Deferred Rectal (Males) Exam: Deferred Back Exam: Normal Inspection, Full Range of Motion. No: CVA Tenderness (L), CVA Tenderness (R), Muscle Spasm Extremities: Normal Range of Motion, Non-Tender, Normal Capillary Refill, Pedal Edema (+1 bilateral pedal/pretibial edema). No: Reza's Sign Neurological: Alert, Oriented, CN II-XII Intact, Normal Cognition, Normal Gait, Normal Reflexes (Negative Babinski's), No Motor/Sensory Deficits, Other (Severe generalized weakness. Mild resting tremor with no rigidity or cogwheeling.) Psychiatric: Anxious (Moderate), Depressed Mood (Mild to moderate) Skin Exam: Dry, Intact, Normal Color, No Rash, Diaphoretic. No: Lymphangitis, Wound/Incision Lymphatic: No Adenopathy #1 Interpretation EKG Date: 10/29/20 Time: 18:49 Rhythm: NSR Rate (Beats/Min): 84 [place]: Normal (Neutral) P-Wave: Present QRS: Normal (0.08 seconds) ST-T: Normal (Resolution of previous T wave inversion in lead V1) QT: Normal ND/PQ Interval: 0.22 seconds representing a stable first-degree AV block. Stable poor R wave progression in the anterior leads. Low voltage Comparison: Change From Previous EKG (As above since 08/06/2016.) Course - Vital Signs Last Recorded V/S: Last Vital Signs Temp 36.2 C 10/29/20 20:18 Pulse 82 10/29/20 20:18 Resp 22 H 10/29/20 20:18 BP 138/90 10/29/20 20:18 Pulse Ox 99 10/29/20 20:18 Vital Signs - 24 hr 10/29/20 10/29/20 10/29/20 18:40 19:28 20:18 Temperature [ 36.6 C 37.2 C 36.2 C Temporal] Pulse, 89 80 82 Peripheral [ Pulse Oximetry] Respiratory 18 20 22 H Rate Blood Pressure 130/82 112/78 138/90 [Left Upper Arm ] O2 Sat by Pulse 96 98 99 Oximetry O2 Sat by Pulse 100 Oximetry [ Nasal Cannula] O2 Sat by Pulse 100 Oximetry [Room Air] 10/29/20 10/29/20 21:15 21:47 Temperature [ 36.2 C Temporal] Pulse, 80 79 Peripheral [ Pulse Oximetry] Respiratory 20 20 Rate Blood Pressure 142/74 H 136/76 [Left Upper Arm ] O2 Sat by Pulse 98 98 Oximetry O2 Sat by Pulse Oximetry [ Nasal Cannula] O2 Sat by Pulse Oximetry [Room Air] - Orders/Labs/Meds Orders: Active Orders 24 hr Category Date Time Status Blood Glucose Check, Bedside [RC] STAT Care 10/29/20 18:41 Active Cardiac Monitoring [RC] . DIRECTED Care 10/29/20 18:40 Active EKG Documentation Completion [RC] ASDIRECTED Care 10/29/20 18:40 Active Oxygen Therapy, ED [RC] PRN Care 10/29/20 18:40 Active Peripheral IV Care [RC] . DIRECTED Care 10/29/20 18:40 Active Pulse Oximetry [RC] CONTINUOUS Care 10/29/20 18:40 Active Up With Assistance [RC] PFP Care 10/29/20 18:40 Active Vital Signs [RC] PFP Care 10/29/20 18:40 Active Nothing per Oral Now Diet [DIET] Diet 10/29/20 Breakfast Active Chest 1V Frontal [CR] Stat Exams 10/29/20 18:40 Taken Chest PE [Ang Chest] [CT] Stat Exams 10/29/20 19:35 Ordered Lactated Ringers @ 100 MLS/HR(1,000ml) Med 10/29/20 21:45 Ordered Lactated Ringers [Ringers, Lactated] 1,000 ml IV ASDIRECTED Sodium Chloride 0.9% [Saline Flush] Med 10/29/20 18:39 Active 10 ml FLUSH ASDIRECTED PRN Obtain Past Medical Record [OM.PC] Urgent Oth 10/29/20 18:40 Active Peripheral IV Insertion Adult [OM.PC] Stat Oth 10/29/20 18:40 Ordered Resuscitation Status Stat Resus Stat 10/29/20 18:39 Ordered Medication Orders Sodium Chloride (Saline Flush) 10 ml FLUSH ASDIRECTED PRN PRN Reason: Keep Vein Open Labs: Laboratory Tests 10/29/20 10/29/20 10/29/20 Range/Units 18:41 18:48 18:48 WBC 9.3 (4.0-10.2) K/uL RBC 3.53 L (4.33-5.41) M/uL Hgb 11.7 L (13.1-16.8) g/dL Hct 35.7 L (39.0-49.0) % MCV 101.1 H D (84.0-98.0) fL MCH 33.1 (28.2-33.3) pg MCHC 32.8 (31.7-36.0) g/dL RDW 14.4 H (11.2-14.1) % Plt Count 351 H D (150-350) K/uL Neut % (Auto) 71.8 (45.0-80.0) % Lymph % (Auto) 18.3 (10.0-50.0) % Graham % (Auto) 8.4 (2.0-14.0) % Eos % (Auto) 1.2 (0.0-5.0) % Baso % (Auto) 0.3 (0.0-2.0) % Neut # (Auto) 6.69 (1.40-7.00) K/uL Lymph # (Auto) 1.70 (0.50-3.50) K/uL Graham # (Auto) 0.78 (0.00-1.00) K/uL Eos # (Auto) 0.11 (0.00-0.50) K/uL Baso # (Auto) 0.03 (0.00-0.20) K/uL PT 11.3 (9.5-12.0) SEC INR 1.1 APTT 25.9 (24.5-32.8) SEC D-Dimer, Quantitative (0-400) ng/mL Sodium (136-145) mmol/L Potassium (3.5-5.1) mmol/L Chloride (98-107) mmol/L Carbon Dioxide (21.0-32.0) mmol/L BUN (7-18) mg/dL Creatinine (0.51-1.17) mg/dL Est Cr Clr Drug Dosing Estimated GFR (MDRD) mL/min Glucose (70-99) mg/dL POC Glucose 126 H (65-110) mg/dl Lactic Acid (0.4-2.0) mmol/L Uric Acid (2.6-7.2) mg/dL Calcium (8.5-10.1) mg/dL Magnesium (1.8-2.4) mg/dL Total Bilirubin (0.2-1.0) mg/dL AST (15-37) U/L ALT (12-78) U/L Alkaline Phosphatase (46-116) IU/L Creatine Kinase (26-308) U/L Creatine Kinase Index (0.0-2.5) % CK-MB (CK-2) (0.00-3.60) ng/mL Troponin I (0.000-0.056) ng/mL NT-Pro-B Natriuret Pep (0-125) pg/mL Total Protein (6.4-8.2) g/dL Albumin (3.4-5.0) g/dL TSH, Ultra Sensitive (0.358-3.740) mIU/mL 10/29/20 10/29/20 10/29/20 Range/Units 18:48 18:48 18:48 WBC (4.0-10.2) K/uL RBC (4.33-5.41) M/uL Hgb (13.1-16.8) g/dL Hct (39.0-49.0) % MCV (84.0-98.0) fL MCH (28.2-33.3) pg MCHC (31.7-36.0) g/dL RDW (11.2-14.1) % Plt Count (150-350) K/uL Neut % (Auto) (45.0-80.0) % Lymph % (Auto) (10.0-50.0) % Graham % (Auto) (2.0-14.0) % Eos % (Auto) (0.0-5.0) % Baso % (Auto) (0.0-2.0) % Neut # (Auto) (1.40-7.00) K/uL Lymph # (Auto) (0.50-3.50) K/uL Graham # (Auto) (0.00-1.00) K/uL Eos # (Auto) (0.00-0.50) K/uL Baso # (Auto) (0.00-0.20) K/uL PT (9.5-12.0) SEC INR APTT (24.5-32.8) SEC D-Dimer, Quantitative 1690 H (0-400) ng/mL Sodium 137 (136-145) mmol/L Potassium 4.9 (3.5-5.1) mmol/L Chloride 102 (98-107) mmol/L Carbon Dioxide 25.6 (21.0-32.0) mmol/L BUN 11 (7-18) mg/dL Creatinine 1.15 (0.51-1.17) mg/dL Est Cr Clr Drug Dosing TNP Estimated GFR (MDRD) > 60 mL/min Glucose 135 H (70-99) mg/dL POC Glucose (65-110) mg/dl Lactic Acid 4.4 H (0.4-2.0) mmol/L Uric Acid 7.6 H (2.6-7.2) mg/dL Calcium 7.7 L (8.5-10.1) mg/dL Magnesium 1.1 L (1.8-2.4) mg/dL Total Bilirubin 0.4 (0.2-1.0) mg/dL AST 83 H (15-37) U/L ALT 33 (12-78) U/L Alkaline Phosphatase 245 H (46-116) IU/L Creatine Kinase 41 (26-308) U/L Creatine Kinase Index 1.0 (0.0-2.5) % CK-MB (CK-2) 0.40 (0.00-3.60) ng/mL Troponin I 0.012 (0.000-0.056) ng/mL NT-Pro-B Natriuret Pep 500 H (0-125) pg/mL Total Protein 6.1 L (6.4-8.2) g/dL Albumin 2.0 L (3.4-5.0) g/dL TSH, Ultra Sensitive 3.045 (0.358-3.740) mIU/mL Meds: Medications Generic Name Dose Route Start Last Admin Trade Name Freq PRN Reason Stop Dose Admin Sodium Chloride 10 ml 10/29/20 18:39 Saline Flush FLUSH ASDIRECTED PRN Keep Vein Open Discontinued Medications Generic Name Dose Route Start Last Admin Trade Name Garrettq PRN Reason Stop Dose Admin Aspirin 324 mg 10/29/20 18:39 10/29/20 18:53 Aspirin CHEW 10/29/20 18:40 324 mg ONETIME ONE Administration Famotidine 40 mg 10/29/20 18:39 10/29/20 18:53 Pepcid IVPUSH 10/29/20 18:40 40 mg ONETIME ONE Administration Lactated Ringer's 1,000 mls @ 999 mls/hr 10/29/20 19:35 10/29/20 20:00 Ringers, Lactated IV 10/29/20 20:35 999 mls/hr .BOLUS ONE Administration Iopamidol 100 ml 10/29/20 13:00 Isovue-370 (76%) IVPUSH 10/29/20 13:01 ONETIME ONE Iopamidol Confirm 10/29/20 19:53 Isovue-370 (76%) Administered 10/29/20 19:54 Dose 100 ml .ROUTE .STK-MED ONE Lorazepam 1 mg 10/29/20 20:07 10/29/20 20:17 Ativan IVPUSH 10/29/20 20:08 1 mg ONETIME ONE Administration Pantoprazole Sodium 40 mg 10/29/20 20:08 10/29/20 20:17 Protonix Iv IVPUSH 10/29/20 20:09 40 mg ONETIME ONE Administration Ticagrelor 180 mg 10/29/20 18:39 10/29/20 18:53 Brilinta PO 10/29/20 18:40 180 mg ONETIME ONE Administration - Radiology Interpretation Free Text/Narrative:: campus monitor shows heart rate in the 70s to 80s with normal sinus rhythm with no ectopy or arrhythmia. Chest x-ray, portable, shows extremely poor inspiratory film with severe cardiomegaly with mild CHF. Moderate COPD changes with no pneumothorax, pulmonary infiltrates, etc. Telephone consultation at 9:15 PM with the radiology department at [facility]. Preliminary verbal report of CTA of the chest was negative for PE although suboptimal film. Films will be recent with smaller slices for better evaluation, although the radiologist does not expect any better resolution. Incidental ascites noted. CT Results Date: 10/29/20 CT Results Time: 21:15 Departure - Departure Time of Disposition: 22:10 Disposition: Admitted As Inpatient 66 Condition: Fair Clinical Impression: Macrocytic anemia, Elevated LFTs, D-dimer, elevated, Elevated lactic acid level, Hypomagnesemia, Hypoalbuminemia, Hyperuricemia, Hypocalcemia, Dyslipidemia, Peptic reflux disease CHF (congestive heart failure) Qualifiers: Heart failure type: unspecified Heart failure chronicity: acute on chronic Qualified Code(s): I50.9 - Heart failure, unspecified Ascites Qualifiers: Ascites type: other type Qualified Code(s): R18.8 - Other ascites Diabetes mellitus Qualifiers: Diabetes mellitus type: type 2 Diabetes mellitus mcfp insulin use: without mcfp use Diabetes mellitus complication status: with kidney complications Diabetes mellitus complication detail: with chronic kidney disease Chronic kidney disease stage: stage 3 (moderate) Chronic kidney disease stage 3 subtype: stage 3a (GFR 45-59) Qualified Code(s): E11.22 - Type 2 diabetes mellitus with diabetic chronic kidney disease; N18.31 - Chronic kidney disease, stage 3a Referrals: Chelsy Nunez MD [Primary Care Provider] - Forms: ED Department Discharge Care Plan Goals: See plan Sepsis Event Note (ED) - Focused Exam Vital Signs: Vital Signs Temp Pulse Resp BP Pulse Ox Pulse Ox Pulse Ox 10/29/20 20:18 36.2 C 82 22 H 138/90 99 10/29/20 19:28 37.2 C 80 20 112/78 98 10/29/20 18:40 36.6 C 89 18 130/82 96 100 100 - Problem List & Annotations (1) CHF (congestive heart failure) SNOMED Code(s): 30650756 Code(s): I50.9 - HEART FAILURE, UNSPECIFIED Status: Acute Priority: High Current Visit: Yes Onset Date: ~10/29/20 Annotation/Comment:: No chest pain or anginal type symptoms with chest pain protocol not initiated in the emergency room. Initiate standard rule out [place] orders. Cardiac labs to be repeated in 4 hours that time of repeat lactic acid level as below. Echocardiogram in the a.m. Cardiology consultation depending on his clinical course. Initiate IV Lasix therapy after admission with IV bolus of lactated Ringer's required secondary to lactic acid elevation as below. Qualifiers: Heart failure type: unspecified Heart failure chronicity: acute on chronic Qualified Code(s): I50.9 - Heart failure, unspecified (2) Ascites SNOMED Code(s): 770514606 Code(s): R18.8 - OTHER ASCITES Status: Chronic Priority: Medium Current Visit: Yes Annotation/Comment:: Incidental findings. Note moderate alcohol use and mildly elevated LFTs. Further work-up depending on his clinical course. Qualifiers: Ascites type: other type Qualified Code(s): R18.8 - Other ascites (3) D-dimer, elevated SNOMED Code(s): 216224607 Code(s): R79.89 - OTHER SPECIFIED ABNORMAL FINDINGS OF BLOOD CHEMISTRY Status: Acute Priority: Medium Current Visit: Yes Onset Date: 10/29/20 Annotation/Comment:: Suboptimal CTA of the chest, which was negative as above. Venous Doppler studies to be conducted in the a.m. Subcu Lovenox at VTE dose for now. No direct clinical evidence of DVT or PE (4) Diabetes mellitus SNOMED Code(s): 85376868 Code(s): E11.9 - TYPE 2 DIABETES MELLITUS WITHOUT COMPLICATIONS Status: Chronic Priority: Medium Current Visit: Yes Annotation/Comment:: No hypoglycemic symptoms with stat Accu-Chek of 126 immediately on arrival to our emergency room. Glycosylated hemoglobin in the a.m. Initiate sliding scale secondary to Metformin being on hold from his IV contrast today. Patient has been noncompliant with his home Accu-Cheks. Qualifiers: Diabetes mellitus type: type 2 Diabetes mellitus intermediate accountant insulin use: without mcfp use Diabetes mellitus complication status: with kidney complications Diabetes mellitus complication detail: with chronic kidney disease Chronic kidney disease stage: stage 3 (moderate) Chronic kidney disease stage 3 subtype: stage 3a (GFR 45-59) Qualified Code(s): E11.22 - Type 2 diabetes mellitus with diabetic chronic kidney disease; N18.31 - Chronic kidney disease, stage 3a (5) Elevated LFTs SNOMED Code(s): 141701444 Code(s): R79.89 - OTHER SPECIFIED ABNORMAL FINDINGS OF BLOOD CHEMISTRY Status: Acute Priority: Medium Current Visit: Yes Onset Date: 10/29/20 Annotation/Comment:: As above. Possible CHF and/or fatty liver component. Note alcohol use as above. Observe for now. (6) Elevated lactic acid level SNOMED Code(s): 6089849 Code(s): R79.89 - OTHER SPECIFIED ABNORMAL FINDINGS OF BLOOD CHEMISTRY Status: Acute Priority: High Current Visit: Yes Onset Date: 10/29/20 Annotation/Comment:: No clinical evidence of sepsis with no leukocytosis, fever, etc. Patient bolused with 1 L of LR IV with continuation of IV fluids at 100 cc/h with caution secondary to CHF. Initiate sepsis protocol with repeat lactic acid level in 4 hours. (7) Hyperuricemia SNOMED Code(s): 25115153 Code(s): E79.0 - HYPERURICEMIA W/O SIGNS OF INFLAM ARTHRIT AND TOPHACEOUS DIS Status: Acute Priority: Medium Current Visit: Yes Onset Date: 10/29/20 Annotation/Comment:: Newly diagnosed. Observe closely secondary to IV diuresis. (8) Hypoalbuminemia SNOMED Code(s): 744587412 Code(s): E88.09 - OTH DISORDERS OF PLASMA-PROTEIN METABOLISM, NEC Status: Acute Priority: Medium Current Visit: Yes Onset Date: 10/29/20 Annotation/Comment:: Observe for now. (9) Hypocalcemia SNOMED Code(s): 1621622 Code(s): E83.51 - HYPOCALCEMIA Status: Chronic Priority: Medium Current Visit: Yes Annotation/Comment:: Observe for now. (10) Hypomagnesemia SNOMED Code(s): 476282707 Code(s): E83.42 - HYPOMAGNESEMIA Status: Acute Priority: Medium Current Visit: Yes Onset Date: 10/29/20 Annotation/Comment:: Newly diagnosed. IV magnesium sulfate to be initiated shortly after admission with initiation of oral magnesium oxide therapy. (11) Macrocytic anemia SNOMED Code(s): 02127094 Code(s): D53.9 - NUTRITIONAL ANEMIA, UNSPECIFIED Status: Acute Priority: Medium Current Visit: Yes Onset Date: 10/29/20 Annotation/Comment:: Anemia work-up in the a.m. (12) Dyslipidemia SNOMED Code(s): 003559437 Code(s): E78.5 - HYPERLIPIDEMIA, UNSPECIFIED Status: Chronic Priority: Medium Current Visit: Yes Annotation/Comment:: Lipid panel in the a.m. (13) Peptic reflux disease SNOMED Code(s): 923942370 Code(s): K21.9 - GASTRO-ESOPHAGEAL REFLUX DISEASE WITHOUT ESOPHAGITIS Status: Chronic Priority: Medium Current Visit: Yes Annotation/Comment:: IV Pepcid and IV Protonix given in the emergency room. Somewhat symptomatic in the emergency room with no evidence of acute GI bleed. - Problem List Review Problem List Initiated/Reviewed/Updated: Yes - My Orders Last 24 Hours: My Active Orders 10/29/20 Breakfast Nothing per Oral Now Diet [DIET] 10/29/20 18:39 Sodium Chloride 0.9% [Saline Flush] 10 ml FLUSH ASDIRECTED PRN Resuscitation Status Stat 10/29/20 18:40 Cardiac Monitoring [RC] . DIRECTED EKG Documentation Completion [RC] ASDIRECTED Oxygen Therapy, ED [RC] PRN Peripheral IV Care [RC] . DIRECTED Pulse Oximetry [RC] CONTINUOUS Up With Assistance [RC] PFP Vital Signs [RC] PFP Chest 1V Frontal [CR] Stat Obtain Past Medical Record [OM.PC] Urgent Peripheral IV Insertion Adult [OM.PC] Stat 10/29/20 18:41 Blood Glucose Check, Bedside [RC] STAT 10/29/20 19:35 Chest PE [Ang Chest] [CT] Stat 10/29/20 21:45 Lactated Ringers @ 100 MLS/HR(1,000ml) Lactated Ringers [Ringers, Lactated] 1,000 ml IV ASDIRECTED - Assessment/Plan Admission H&P: Please use this note as an admission H&P Last 24 Hours: My Active Orders 10/29/20 Breakfast Nothing per Oral Now Diet [DIET] 10/29/20 18:39 Sodium Chloride 0.9% [Saline Flush] 10 ml FLUSH ASDIRECTED PRN Resuscitation Status Stat 10/29/20 18:40 Cardiac Monitoring [RC] . DIRECTED EKG Documentation Completion [RC] ASDIRECTED Oxygen Therapy, ED [RC] PRN Peripheral IV Care [RC] . DIRECTED Pulse Oximetry [RC] CONTINUOUS Up With Assistance [RC] PFP Vital Signs [RC] PFP Chest 1V Frontal [CR] Stat Obtain Past Medical Record [OM.PC] Urgent Peripheral IV Insertion Adult [OM.PC] Stat 10/29/20 18:41 Blood Glucose Check, Bedside [RC] STAT 10/29/20 19:35 Chest PE [Ang Chest] [CT] Stat 10/29/20 21:45 Lactated Ringers @ 100 MLS/HR(1,000ml) Lactated Ringers [Ringers, Lactated] 1,000 ml IV ASDIRECTED Assessment:: As above Plan: As above. Extensive precautions were given to the patient and his , who are in agreement with the treatment plan. The patient will require about 3-4 days of inpatient/acute care secondary to multiple health problems as above.
[2020-10-29 19:11] LABS: PTT,PARTIAL THROMBOPLSTIN TIME 25.9 SEC (24.5-32.8)
[2020-10-29 19:20] LABS: CHLORIDE,CL 102 mmol/L (98-107); SODIUM,NA 137 mmol/L (136-145)
[2020-10-29] MEDS ORDERED: Lactated Ringers 1,000 ML IV ONE (19:35)
[2020-10-29] MEDS ORDERED: Iopamidol 755 Mg/ML 100 ML Bottle ONE (19:53)
[2020-10-29] MEDS ORDERED: LORazepam 2 MG/ML SDV IVPUSH ONE (20:07)
[2020-10-29] MEDS ORDERED: Pantoprazole 40 MG Vial IVPUSH ONE (20:08)
[2020-10-29] MEDS: Lactated Ringers 1,000 ML IV SCH (21:42)
[2020-10-29] MEDS ORDERED: Temazepam 15 MG Cap PO PRN (22:30)
[2020-10-29] MEDS ORDERED: Acetaminophen 325 MG Tab PO PRN (22:30)
[2020-10-29] MEDS ORDERED: Sodium Chloride 0.9% 10 ML Syringe FLUSH PRN (22:30)
[2020-10-29] MEDS ORDERED: Enoxaparin 100 MG/1 ML Syringe SUBCUT SCH (22:30)
[2020-10-29] MEDS ORDERED: Glucagon,Human Recombinant 1 MG Vial IM PRN (22:35)
[2020-10-29] MEDS ORDERED: Magnesium Sulfate/Water 4 GM/100 ML BAG IV ONE (22:35)
[2020-10-29] MEDS ORDERED: 50% Dextrose in Water 50 ML Syringe IV PRN (22:35)
[2020-10-29] MEDS ORDERED: Lidocaine 2% HCl 11 ML Jelly Filled Syringe ONE (22:55)
[2020-10-29] MEDS ORDERED: Loperamide 2 MG Tab PO SCH (23:06)
[2020-10-29] MEDS ORDERED: LORazepam 2 MG/ML SDV IVPUSH PRN (23:43)
[2020-10-30] MEDS: Furosemide 40 MG/4 ML VIAL IVPUSH SCH ×4 (00:06→21:34)
[2020-10-30] MEDS: oxyCODONE 5 MG Tab PO PRN ×4 (00:07→21:33)
[2020-10-30] MEDS: Gabapentin 300 MG Cap PO SCH ×5 (00:08→20:37)
[2020-10-30] MEDS: hydrOXYzine Pamoate 25 MG Cap PO PRN ×4 (00:09→21:34)
[2020-10-30] MEDS: Sodium Chloride 0.9% 10 ML Syringe FLUSH PRN ×3 (06:15→13:30)
[2020-10-30] MEDS ORDERED: Fluticasone Propionate Nasal Spray 16 GM Bottle NASBOTH PRN (07:00)
[2020-10-30] MEDS: Metoprolol Tartrate 50 MG Tab PO SCH ×2 (07:28→20:41)
[2020-10-30] MEDS: Magnesium Oxide 400 MG Tab PO SCH ×2 (07:29→17:08)
[2020-10-30] MEDS: Pramipexole 0.125 MG Tab PO SCH ×2 (07:30→20:36)
[2020-10-30] MEDS: Potassium Chloride 20 MEQ Tab.ER PO SCH ×3 (07:30→17:08)
[2020-10-30] MEDS: Fish Oil/Omega-3 Fatty Acids 1 Gm Cap PO SCH ×2 (07:30→20:35)
[2020-10-30] MEDS: Pantoprazole 40 MG Vial IVPUSH SCH ×2 (07:31→20:41)
[2020-10-30] MEDS: Primidone 50 MG Tab PO SCH ×2 (07:31→20:37)
[2020-10-30] MEDS ORDERED: Losartan 50 MG Tab PO SCH (08:00)
[2020-10-30] MEDS ORDERED: Cyanocobalamin (Vitamin B12) 1,000 MCG Tab PO SCH (08:00)
[2020-10-30] MEDS ORDERED: Multivitamin Tab PO SCH (08:00)
[2020-10-30 08:08] LABS: CHLORIDE,CL 102 mmol/L (98-107); SODIUM,NA 139 mmol/L (136-145)
[2020-10-30 08:09] LABS: HEMOGLOBIN A1C 5.9 % (4.3-5.7)
--- NOTE | 2020-10-30 08:42 | PCM.PN ---
- General Info Date of Service: 10/30/20 Admission Dx/Problem (Free Text): 1. CHF 2. D-dimer elevation Functional Status: Reports: Pain Controlled, Incentive Spirometry. Denies: Tolerating Diet (N.p.o. at this time), Ambulating (Extreme persistent weakness requiring assist to sit up or stand), New Symptoms Pain Score: 2 (Stable chronic arthritic pain) - Review of Systems General: Reports: Weakness (Severe generalized with previous history of recurrent falls). Denies: Fatigue, Malaise, Chills, Night Sweats, Appetite (Wants breakfast, previously n.p.o.) HEENT: Reports: No Symptoms. Denies: Ear Pain, Eye Pain, Headaches, Post Nasal Drip, Sinus Congestion, Sore Throat, Rhinitis, Visual Changes Pulmonary: Reports: Shortness of Breath, Cough (Stable chronic). Denies: Pleu ritic Chest Pain, Sputum, Hemoptysis, Wheezing Cardiovascular: Reports: Dyspnea on Exertion, Edema (Refractory dependent edema). Denies: Chest Pain, Palpitations, Orthopnea, PND, Lightheadedness Gastrointestinal: Reports: Flatus (Simethicone given this morning), Other (No bowel movement since admission with change of previous Imodium A-D to as needed rather than nightly). Denies: Abdominal Pain, Constipation, Decreased Appetite, Diarrhea, Difficulty Swallowing, Hematochezia, Melena, Nausea, Vomiting Genitourinary: Reports: Incontinence, Other (Farmer catheter). Denies: Dysuria, Frequency, Burning, Pain, Urgency, Hematuria, Retention, Flank Pain Musculoskeletal: Reports: Neck Pain (Stable chronic), Back Pain (Stable chronic), Joint Pain (Stable chronic). Denies: Shoulder Pain, Arm Pain, Hand Pain, Leg Pain, Joint Swelling Skin: Reports: Bruising (Mild secondary to Lovenox). Denies: Diaphoresis, Rash Neurological: Reports: Numbness (Stable by history), Paresthesia (As above), Tingling (As above), Difficulty Walking (As above), Weakness (As above). Denies: Confusion, Dizziness, Headache Psychiatric: Reports: Depression, Anxiety. Denies: Confusion, Agitation, Cravings, Hallucinations - Patient Data Vitals - Most Recent: Last Vital Signs Temp 36.4 C 10/30/20 07:43 Pulse 78 10/30/20 07:43 Resp 22 H 10/30/20 07:43 BP 117/85 10/30/20 07:43 Pulse Ox 98 10/30/20 07:43 Vital Signs - 24 hr 10/29/20 10/29/20 10/29/20 18:40 19:28 20:18 Temperature [ Oral] Temperature [ 36.6 C 37.2 C 36.2 C Temporal] Pulse, Peripheral Pulse, 89 80 82 Peripheral [ Pulse Oximetry] Respiratory 18 20 22 H Rate Blood Pressure Blood Pressure 130/82 112/78 138/90 [Left Upper Arm ] O2 Sat by Pulse 96 98 99 Oximetry O2 Sat by Pulse 100 Oximetry [ Nasal Cannula] O2 Sat by Pulse 100 Oximetry [Room Air] 10/29/20 10/29/20 10/29/20 20:45 21:15 21:55 Temperature [ Oral] Temperature [ 36.2 C Temporal] Pulse, Peripheral Pulse, 79 80 78 Peripheral [ Pulse Oximetry] Respiratory 20 20 16 Rate Blood Pressure Blood Pressure 136/76 142/74 H 127/90 [Left Upper Arm ] O2 Sat by Pulse 98 98 97 Oximetry O2 Sat by Pulse Oximetry [ Nasal Cannula] O2 Sat by Pulse Oximetry [Room Air] 10/29/20 10/29/20 10/30/20 22:15 22:31 00:00 Temperature [ 36.6 C Oral] Temperature [ 36.3 C Temporal] Pulse, Peripheral Pulse, 77 80 Peripheral [ Pulse Oximetry] Respiratory 20 18 Rate Blood Pressure Blood Pressure 126/92 H 129/77 [Left Upper Arm ] O2 Sat by Pulse 100 98 100 Oximetry O2 Sat by Pulse Oximetry [ Nasal Cannula] O2 Sat by Pulse Oximetry [Room Air] 10/30/20 10/30/20 10/30/20 02:10 04:00 07:28 Temperature [ 36.6 C 36.3 C Oral] Temperature [ Temporal] Pulse, 78 Peripheral Pulse, 72 86 Peripheral [ Pulse Oximetry] Respiratory 18 20 Rate Blood Pressure 117/85 Blood Pressure 107/60 113/64 [Left Upper Arm ] O2 Sat by Pulse 100 98 Oximetry O2 Sat by Pulse Oximetry [ Nasal Cannula] O2 Sat by Pulse Oximetry [Room Air] 10/30/20 10/30/20 07:29 07:43 Temperature [ 36.4 C Oral] Temperature [ Temporal] Pulse, Peripheral Pulse, 78 Peripheral [ Pulse Oximetry] Respiratory 22 H Rate Blood Pressure 117/85 Blood Pressure 117/85 [Left Upper Arm ] O2 Sat by Pulse 98 Oximetry O2 Sat by Pulse Oximetry [ Nasal Cannula] O2 Sat by Pulse Oximetry [Room Air] Weight - Most Recent: 130.362 kg I&O - Last 24 Hours: Intake & Output 10/29/20 10/30/20 10/30/20 22:59 06:59 14:59 Intake Total 1000 677 Output Total 1400 Balance 1000 -723 Imaging Impressions - Last 24 Hours: 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 Official report of CTA of the chest using PE protocol on 10/29/2020 shows persistent suboptimal exam with no evidence of PE. Incidental findings of probable benign pulmonary granulomas in the right upper lobe and right lower lobe. Additional coronary artery calcifications were noted. Lab Results Last 24 Hours: Laboratory Results - last 24 hr 10/29/20 10/29/20 10/29/20 Range/Units 03:55 18:41 18:48 WBC 9.3 (4.0-10.2) K/uL RBC 3.53 L (4.33-5.41) M/uL Hgb 11.7 L (13.1-16.8) g/dL Hct 35.7 L (39.0-49.0) % MCV 101.1 H D (84.0-98.0) fL MCH 33.1 (28.2-33.3) pg MCHC 32.8 (31.7-36.0) g/dL RDW 14.4 H (11.2-14.1) % Plt Count 351 H D (150-350) K/uL Neut % (Auto) 71.8 (45.0-80.0) % Lymph % (Auto) 18.3 (10.0-50.0) % [place] % (Auto) 8.4 (2.0-14.0) % Eos % (Auto) 1.2 (0.0-5.0) % Baso % (Auto) 0.3 (0.0-2.0) % Neut # (Auto) 6.69 (1.40-7.00) K/uL Lymph # (Auto) 1.70 (0.50-3.50) K/uL [place] # (Auto) 0.78 (0.00-1.00) K/uL Eos # (Auto) 0.11 (0.00-0.50) K/uL Baso # (Auto) 0.03 (0.00-0.20) K/uL PT (9.5-12.0) SEC INR APTT (24.5-32.8) SEC D-Dimer, Quantitative (0-400) ng/mL Sodium (136-145) mmol/L Potassium (3.5-5.1) mmol/L Chloride (98-107) mmol/L Carbon Dioxide (21.0-32.0) mmol/L BUN (7-18) mg/dL Creatinine (0.51-1.17) mg/dL Est Cr Clr Drug Dosing Estimated GFR (MDRD) mL/min Glucose (70-99) mg/dL POC Glucose 126 H (65-110) mg/dl Hemoglobin A1c (4.3-5.7) % Lactic Acid (0.4-2.0) mmol/L Uric Acid (2.6-7.2) mg/dL Calcium (8.5-10.1) mg/dL Magnesium (1.8-2.4) mg/dL Total Bilirubin (0.2-1.0) mg/dL AST (15-37) U/L ALT (12-78) U/L Alkaline Phosphatase (46-116) IU/L Creatine Kinase (26-308) U/L Creatine Kinase Index (0.0-2.5) % CK-MB (CK-2) (0.00-3.60) ng/mL Troponin I (0.000-0.056) ng/mL NT-Pro-B Natriuret Pep (0-125) pg/mL Total Protein (6.4-8.2) g/dL Albumin (3.4-5.0) g/dL Triglycerides (30-150) mg/dL Cholesterol (100-200) mg/dL LDL Cholesterol, Calc (0-100) mg/dL HDL Cholesterol (40-60) mg/dL TSH, Ultra Sensitive (0.358-3.740) mIU/mL Specimen Type [place] Urine Color Yellow Urine Appearance Clear Urine pH 6.0 (5.0-9.0) Ur Specific [place] 1.015 (1.005-1.030) Urine Protein Negative (NEGATIVE) mg/dL Urine Glucose (UA) Negative (NEGATIVE) mg/dL Urine Ketones Negative (NEGATIVE) mg/dL Urine Occult Blood Moderate H (NEGATIVE) Urine Nitrite Negative (NEGATIVE) Urine Bilirubin Negative (NEGATIVE) Urine Urobilinogen 0.2 (0.2-1.0) E.U./dL Ur Leukocyte Esterase Negative (NEGATIVE) Urine RBC 30-40 H /HPF Urine WBC 0-5 /HPF Ur Epithelial Cells Few /LPF Urine Bacteria Rare (NONE TO FEW) /HPF 10/29/20 10/29/20 10/29/20 Range/Units 18:48 18:48 18:48 WBC (4.0-10.2) K/uL RBC (4.33-5.41) M/uL Hgb (13.1-16.8) g/dL Hct (39.0-49.0) % MCV (84.0-98.0) fL MCH (28.2-33.3) pg MCHC (31.7-36.0) g/dL RDW (11.2-14.1) % Plt Count (150-350) K/uL Neut % (Auto) (45.0-80.0) % Lymph % (Auto) (10.0-50.0) % [place] % (Auto) (2.0-14.0) % Eos % (Auto) (0.0-5.0) % Baso % (Auto) (0.0-2.0) % Neut # (Auto) (1.40-7.00) K/uL Lymph # (Auto) (0.50-3.50) K/uL [place] # (Auto) (0.00-1.00) K/uL Eos # (Auto) (0.00-0.50) K/uL Baso # (Auto) (0.00-0.20) K/uL PT 11.3 (9.5-12.0) SEC INR 1.1 APTT 25.9 (24.5-32.8) SEC D-Dimer, Quantitative 1690 H (0-400) ng/mL Sodium 137 (136-145) mmol/L Potassium 4.9 (3.5-5.1) mmol/L Chloride 102 (98-107) mmol/L Carbon Dioxide 25.6 (21.0-32.0) mmol/L BUN 11 (7-18) mg/dL Creatinine 1.15 (0.51-1.17) mg/dL Est Cr Clr Drug Dosing TNP Estimated GFR (MDRD) > 60 mL/min Glucose 135 H (70-99) mg/dL POC Glucose (65-110) mg/dl Hemoglobin A1c (4.3-5.7) % Lactic Acid (0.4-2.0) mmol/L Uric Acid 7.6 H (2.6-7.2) mg/dL Calcium 7.7 L (8.5-10.1) mg/dL Magnesium 1.1 L (1.8-2.4) mg/dL Total Bilirubin 0.4 (0.2-1.0) mg/dL AST 83 H (15-37) U/L ALT 33 (12-78) U/L Alkaline Phosphatase 245 H (46-116) IU/L Creatine Kinase 41 (26-308) U/L Creatine Kinase Index 1.0 (0.0-2.5) % CK-MB (CK-2) 0.40 (0.00-3.60) ng/mL Troponin I 0.012 (0.000-0.056) ng/mL NT-Pro-B Natriuret Pep 500 H (0-125) pg/mL Total Protein 6.1 L (6.4-8.2) g/dL Albumin 2.0 L (3.4-5.0) g/dL Triglycerides (30-150) mg/dL Cholesterol (100-200) mg/dL LDL Cholesterol, Calc (0-100) mg/dL HDL Cholesterol (40-60) mg/dL TSH, Ultra Sensitive 3.045 (0.358-3.740) mIU/mL Specimen Type Urine Color Urine Appearance Urine pH (5.0-9.0) Ur Specific [place] (1.005-1.030) Urine Protein (NEGATIVE) mg/dL Urine Glucose (UA) (NEGATIVE) mg/dL Urine Ketones (NEGATIVE) mg/dL Urine Occult Blood (NEGATIVE) Urine Nitrite (NEGATIVE) Urine Bilirubin (NEGATIVE) Urine Urobilinogen (0.2-1.0) E.U./dL Ur Leukocyte Esterase (NEGATIVE) Urine RBC /HPF Urine WBC /HPF Ur Epithelial Cells /LPF Urine Bacteria (NONE TO FEW) /HPF 10/29/20 10/29/20 10/29/20 Range/Units 18:48 22:45 22:45 WBC (4.0-10.2) K/uL RBC (4.33-5.41) M/uL Hgb (13.1-16.8) g/dL Hct (39.0-49.0) % MCV (84.0-98.0) fL MCH (28.2-33.3) pg MCHC (31.7-36.0) g/dL RDW (11.2-14.1) % Plt Count (150-350) K/uL Neut % (Auto) (45.0-80.0) % Lymph % (Auto) (10.0-50.0) % [place] % (Auto) (2.0-14.0) % Eos % (Auto) (0.0-5.0) % Baso % (Auto) (0.0-2.0) % Neut # (Auto) (1.40-7.00) K/uL Lymph # (Auto) (0.50-3.50) K/uL [place] # (Auto) (0.00-1.00) K/uL Eos # (Auto) (0.00-0.50) K/uL Baso # (Auto) (0.00-0.20) K/uL PT (9.5-12.0) SEC INR APTT (24.5-32.8) SEC D-Dimer, Quantitative (0-400) ng/mL Sodium (136-145) mmol/L Potassium (3.5-5.1) mmol/L Chloride (98-107) mmol/L Carbon Dioxide (21.0-32.0) mmol/L BUN (7-18) mg/dL Creatinine (0.51-1.17) mg/dL Est Cr Clr Drug Dosing Estimated GFR (MDRD) mL/min Glucose (70-99) mg/dL POC Glucose (65-110) mg/dl Hemoglobin A1c (4.3-5.7) % Lactic Acid 4.4 H 4.1 H (0.4-2.0) mmol/L Uric Acid (2.6-7.2) mg/dL Calcium (8.5-10.1) mg/dL Magnesium (1.8-2.4) mg/dL Total Bilirubin (0.2-1.0) mg/dL AST (15-37) U/L ALT (12-78) U/L Alkaline Phosphatase (46-116) IU/L Creatine Kinase 33 (26-308) U/L Creatine Kinase Index 1.2 (0.0-2.5) % CK-MB (CK-2) 0.40 (0.00-3.60) ng/mL Troponin I 0.009 (0.000-0.056) ng/mL NT-Pro-B Natriuret Pep (0-125) pg/mL Total Protein (6.4-8.2) g/dL Albumin (3.4-5.0) g/dL Triglycerides (30-150) mg/dL Cholesterol (100-200) mg/dL LDL Cholesterol, Calc (0-100) mg/dL HDL Cholesterol (40-60) mg/dL TSH, Ultra Sensitive (0.358-3.740) mIU/mL Specimen Type Urine Color Urine Appearance Urine pH (5.0-9.0) Ur Specific [place] (1.005-1.030) Urine Protein (NEGATIVE) mg/dL Urine Glucose (UA) (NEGATIVE) mg/dL Urine Ketones (NEGATIVE) mg/dL Urine Occult Blood (NEGATIVE) Urine Nitrite (NEGATIVE) Urine Bilirubin (NEGATIVE) Urine Urobilinogen (0.2-1.0) E.U./dL Ur Leukocyte Esterase (NEGATIVE) Urine RBC /HPF Urine WBC /HPF Ur Epithelial Cells /LPF Urine Bacteria (NONE TO FEW) /HPF 10/30/20 10/30/20 10/30/20 Range/Units 07:30 07:30 07:30 WBC 7.0 (4.0-10.2) K/uL RBC 3.43 L (4.33-5.41) M/uL Hgb 11.3 L (13.1-16.8) g/dL Hct 35.1 L (39.0-49.0) % MCV 102.3 H (84.0-98.0) fL MCH 32.9 (28.2-33.3) pg MCHC 32.2 (31.7-36.0) g/dL RDW 14.9 H (11.2-14.1) % Plt Count 266 D (150-350) K/uL Neut % (Auto) 59.0 (45.0-80.0) % Lymph % (Auto) 27.9 (10.0-50.0) % [place] % (Auto) 10.4 (2.0-14.0) % Eos % (Auto) 2.1 (0.0-5.0) % Baso % (Auto) 0.6 (0.0-2.0) % Neut # (Auto) 4.12 (1.40-7.00) K/uL Lymph # (Auto) 1.95 (0.50-3.50) K/uL [place] # (Auto) 0.73 (0.00-1.00) K/uL Eos # (Auto) 0.15 (0.00-0.50) K/uL Baso # (Auto) 0.04 (0.00-0.20) K/uL PT (9.5-12.0) SEC INR APTT (24.5-32.8) SEC D-Dimer, Quantitative 1250 H (0-400) ng/mL Sodium 139 (136-145) mmol/L Potassium 4.3 (3.5-5.1) mmol/L Chloride 102 (98-107) mmol/L Carbon Dioxide 29.9 (21.0-32.0) mmol/L BUN 11 (7-18) mg/dL Creatinine 1.11 (0.51-1.17) mg/dL Est Cr Clr Drug Dosing 72.82 Estimated GFR (MDRD) > 60 mL/min Glucose 107 H (70-99) mg/dL POC Glucose (65-110) mg/dl Hemoglobin A1c (4.3-5.7) % Lactic Acid (0.4-2.0) mmol/L Uric Acid (2.6-7.2) mg/dL Calcium 7.8 L (8.5-10.1) mg/dL Magnesium (1.8-2.4) mg/dL Total Bilirubin 0.7 (0.2-1.0) mg/dL AST 65 H (15-37) U/L ALT 28 (12-78) U/L Alkaline Phosphatase 237 H (46-116) IU/L Creatine Kinase 40 (26-308) U/L Creatine Kinase Index 0.8 (0.0-2.5) % CK-MB (CK-2) 0.30 (0.00-3.60) ng/mL Troponin I 0.016 (0.000-0.056) ng/mL NT-Pro-B Natriuret Pep 579 H (0-125) pg/mL Total Protein 5.9 L (6.4-8.2) g/dL Albumin 1.9 L (3.4-5.0) g/dL Triglycerides 199 H (30-150) mg/dL Cholesterol 90 L (100-200) mg/dL LDL Cholesterol, Calc 29 (0-100) mg/dL HDL Cholesterol 21 L (40-60) mg/dL TSH, Ultra Sensitive (0.358-3.740) mIU/mL Specimen Type Urine Color Urine Appearance Urine pH (5.0-9.0) Ur Specific [place] (1.005-1.030) Urine Protein (NEGATIVE) mg/dL Urine Glucose (UA) (NEGATIVE) mg/dL Urine Ketones (NEGATIVE) mg/dL Urine Occult Blood (NEGATIVE) Urine Nitrite (NEGATIVE) Urine Bilirubin (NEGATIVE) Urine Urobilinogen (0.2-1.0) E.U./dL Ur Leukocyte Esterase (NEGATIVE) Urine RBC /HPF Urine WBC /HPF Ur Epithelial Cells /LPF Urine Bacteria (NONE TO FEW) /HPF 10/30/20 10/30/20 Range/Units 07:30 07:30 WBC (4.0-10.2) K/uL RBC (4.33-5.41) M/uL Hgb (13.1-16.8) g/dL Hct (39.0-49.0) % MCV (84.0-98.0) fL MCH (28.2-33.3) pg MCHC (31.7-36.0) g/dL RDW (11.2-14.1) % Plt Count (150-350) K/uL Neut % (Auto) (45.0-80.0) % Lymph % (Auto) (10.0-50.0) % [place] % (Auto) (2.0-14.0) % Eos % (Auto) (0.0-5.0) % Baso % (Auto) (0.0-2.0) % Neut # (Auto) (1.40-7.00) K/uL Lymph # (Auto) (0.50-3.50) K/uL [place] # (Auto) (0.00-1.00) K/uL Eos # (Auto) (0.00-0.50) K/uL Baso # (Auto) (0.00-0.20) K/uL PT (9.5-12.0) SEC INR APTT (24.5-32.8) SEC D-Dimer, Quantitative (0-400) ng/mL Sodium (136-145) mmol/L Potassium (3.5-5.1) mmol/L Chloride (98-107) mmol/L Carbon Dioxide (21.0-32.0) mmol/L BUN (7-18) mg/dL Creatinine (0.51-1.17) mg/dL Est Cr Clr Drug Dosing Estimated GFR (MDRD) mL/min Glucose (70-99) mg/dL POC Glucose (65-110) mg/dl Hemoglobin A1c 5.9 H (4.3-5.7) % Lactic Acid 3.3 H (0.4-2.0) mmol/L Uric Acid (2.6-7.2) mg/dL Calcium (8.5-10.1) mg/dL Magnesium (1.8-2.4) mg/dL Total Bilirubin (0.2-1.0) mg/dL AST (15-37) U/L ALT (12-78) U/L Alkaline Phosphatase (46-116) IU/L Creatine Kinase (26-308) U/L Creatine Kinase Index (0.0-2.5) % CK-MB (CK-2) (0.00-3.60) ng/mL Troponin I (0.000-0.056) ng/mL NT-Pro-B Natriuret Pep (0-125) pg/mL Total Protein (6.4-8.2) g/dL Albumin (3.4-5.0) g/dL Triglycerides (30-150) mg/dL Cholesterol (100-200) mg/dL LDL Cholesterol, Calc (0-100) mg/dL HDL Cholesterol (40-60) mg/dL TSH, Ultra Sensitive (0.358-3.740) mIU/mL Specimen Type Urine Color Urine Appearance Urine pH (5.0-9.0) Ur Specific [place] (1.005-1.030) Urine Protein (NEGATIVE) mg/dL Urine Glucose (UA) (NEGATIVE) mg/dL Urine Ketones (NEGATIVE) mg/dL Urine Occult Blood (NEGATIVE) Urine Nitrite (NEGATIVE) Urine Bilirubin (NEGATIVE) Urine Urobilinogen (0.2-1.0) E.U./dL Ur Leukocyte Esterase (NEGATIVE) Urine RBC /HPF Urine WBC /HPF Ur Epithelial Cells /LPF Urine Bacteria (NONE TO FEW) /HPF Laboratory Tests 10/29/20 10/29/20 10/29/20 Range/Units 03:55 18:41 18:48 WBC 9.3 (4.0-10.2) K/uL RBC 3.53 L (4.33-5.41) M/uL Hgb 11.7 L (13.1-16.8) g/dL Hct 35.7 L (39.0-49.0) % MCV 101.1 H D (84.0-98.0) fL MCH 33.1 (28.2-33.3) pg MCHC 32.8 (31.7-36.0) g/dL RDW 14.4 H (11.2-14.1) % Plt Count 351 H D (150-350) K/uL Neut % (Auto) 71.8 (45.0-80.0) % Lymph % (Auto) 18.3 (10.0-50.0) % [place] % (Auto) 8.4 (2.0-14.0) % Eos % (Auto) 1.2 (0.0-5.0) % Baso % (Auto) 0.3 (0.0-2.0) % Neut # (Auto) 6.69 (1.40-7.00) K/uL Lymph # (Auto) 1.70 (0.50-3.50) K/uL [place] # (Auto) 0.78 (0.00-1.00) K/uL Eos # (Auto) 0.11 (0.00-0.50) K/uL Baso # (Auto) 0.03 (0.00-0.20) K/uL PT (9.5-12.0) SEC INR APTT (24.5-32.8) SEC D-Dimer, Quantitative (0-400) ng/mL Sodium (136-145) mmol/L Potassium (3.5-5.1) mmol/L Chloride (98-107) mmol/L Carbon Dioxide (21.0-32.0) mmol/L BUN (7-18) mg/dL Creatinine (0.51-1.17) mg/dL Est Cr Clr Drug Dosing Estimated GFR (MDRD) mL/min Glucose (70-99) mg/dL POC Glucose 126 H (65-110) mg/dl Hemoglobin A1c (4.3-5.7) % Lactic Acid (0.4-2.0) mmol/L Uric Acid (2.6-7.2) mg/dL Calcium (8.5-10.1) mg/dL Magnesium (1.8-2.4) mg/dL Total Bilirubin (0.2-1.0) mg/dL AST (15-37) U/L ALT (12-78) U/L Alkaline Phosphatase (46-116) IU/L Creatine Kinase (26-308) U/L Creatine Kinase Index (0.0-2.5) % CK-MB (CK-2) (0.00-3.60) ng/mL Troponin I (0.000-0.056) ng/mL NT-Pro-B Natriuret Pep (0-125) pg/mL Total Protein (6.4-8.2) g/dL Albumin (3.4-5.0) g/dL Triglycerides (30-150) mg/dL Cholesterol (100-200) mg/dL LDL Cholesterol, Calc (0-100) mg/dL HDL Cholesterol (40-60) mg/dL TSH, Ultra Sensitive (0.358-3.740) mIU/mL Specimen Type Ur[place] Urine Color Yellow Urine Appearance Clear Urine pH 6.0 (5.0-9.0) Ur Specific [place] 1.015 (1.005-1.030) Urine Protein Negative (NEGATIVE) mg/dL Urine Glucose (UA) Negative (NEGATIVE) mg/dL Urine Ketones Negative (NEGATIVE) mg/dL Urine Occult Blood Moderate H (NEGATIVE) Urine Nitrite Negative (NEGATIVE) Urine Bilirubin Negative (NEGATIVE) Urine Urobilinogen 0.2 (0.2-1.0) E.U./dL Ur Leukocyte Esterase Negative (NEGATIVE) Urine RBC 30-40 H /HPF Urine WBC 0-5 /HPF Ur Epithelial Cells Few /LPF Urine Bacteria Rare (NONE TO FEW) /HPF 10/29/20 10/29/20 10/29/20 Range/Units 18:48 18:48 18:48 WBC (4.0-10.2) K/uL RBC (4.33-5.41) M/uL Hgb (13.1-16.8) g/dL Hct (39.0-49.0) % MCV (84.0-98.0) fL MCH (28.2-33.3) pg MCHC (31.7-36.0) g/dL RDW (11.2-14.1) % Plt Count (150-350) K/uL Neut % (Auto) (45.0-80.0) % Lymph % (Auto) (10.0-50.0) % [place] % (Auto) (2.0-14.0) % Eos % (Auto) (0.0-5.0) % Baso % (Auto) (0.0-2.0) % Neut # (Auto) (1.40-7.00) K/uL Lymph # (Auto) (0.50-3.50) K/uL [place] # (Auto) (0.00-1.00) K/uL Eos # (Auto) (0.00-0.50) K/uL Baso # (Auto) (0.00-0.20) K/uL PT 11.3 (9.5-12.0) SEC INR 1.1 APTT 25.9 (24.5-32.8) SEC D-Dimer, Quantitative 1690 H (0-400) ng/mL Sodium 137 (136-145) mmol/L Potassium 4.9 (3.5-5.1) mmol/L Chloride 102 (98-107) mmol/L Carbon Dioxide 25.6 (21.0-32.0) mmol/L BUN 11 (7-18) mg/dL Creatinine 1.15 (0.51-1.17) mg/dL Est Cr Clr Drug Dosing TNP Estimated GFR (MDRD) > 60 mL/min Glucose 135 H (70-99) mg/dL POC Glucose (65-110) mg/dl Hemoglobin A1c (4.3-5.7) % Lactic Acid (0.4-2.0) mmol/L Uric Acid 7.6 H (2.6-7.2) mg/dL Calcium 7.7 L (8.5-10.1) mg/dL Magnesium 1.1 L (1.8-2.4) mg/dL Total Bilirubin 0.4 (0.2-1.0) mg/dL AST 83 H (15-37) U/L ALT 33 (12-78) U/L Alkaline Phosphatase 245 H (46-116) IU/L Creatine Kinase 41 (26-308) U/L Creatine Kinase Index 1.0 (0.0-2.5) % CK-MB (CK-2) 0.40 (0.00-3.60) ng/mL Troponin I 0.012 (0.000-0.056) ng/mL NT-Pro-B Natriuret Pep 500 H (0-125) pg/mL Total Protein 6.1 L (6.4-8.2) g/dL Albumin 2.0 L (3.4-5.0) g/dL Triglycerides (30-150) mg/dL Cholesterol (100-200) mg/dL LDL Cholesterol, Calc (0-100) mg/dL HDL Cholesterol (40-60) mg/dL TSH, Ultra Sensitive 3.045 (0.358-3.740) mIU/mL Specimen Type Urine Color Urine Appearance Urine pH (5.0-9.0) Ur Specific [place] (1.005-1.030) Urine Protein (NEGATIVE) mg/dL Urine Glucose (UA) (NEGATIVE) mg/dL Urine Ketones (NEGATIVE) mg/dL Urine Occult Blood (NEGATIVE) Urine Nitrite (NEGATIVE) Urine Bilirubin (NEGATIVE) Urine Urobilinogen (0.2-1.0) E.U./dL Ur Leukocyte Esterase (NEGATIVE) Urine RBC /HPF Urine WBC /HPF Ur Epithelial Cells /LPF Urine Bacteria (NONE TO FEW) /HPF 10/29/20 10/29/20 10/29/20 Range/Units 18:48 22:45 22:45 WBC (4.0-10.2) K/uL RBC (4.33-5.41) M/uL Hgb (13.1-16.8) g/dL Hct (39.0-49.0) % MCV (84.0-98.0) fL MCH (28.2-33.3) pg MCHC (31.7-36.0) g/dL RDW (11.2-14.1) % Plt Count (150-350) K/uL Neut % (Auto) (45.0-80.0) % Lymph % (Auto) (10.0-50.0) % [place] % (Auto) (2.0-14.0) % Eos % (Auto) (0.0-5.0) % Baso % (Auto) (0.0-2.0) % Neut # (Auto) (1.40-7.00) K/uL Lymph # (Auto) (0.50-3.50) K/uL [place] # (Auto) (0.00-1.00) K/uL Eos # (Auto) (0.00-0.50) K/uL Baso # (Auto) (0.00-0.20) K/uL PT (9.5-12.0) SEC INR APTT (24.5-32.8) SEC D-Dimer, Quantitative (0-400) ng/mL Sodium (136-145) mmol/L Potassium (3.5-5.1) mmol/L Chloride (98-107) mmol/L Carbon Dioxide (21.0-32.0) mmol/L BUN (7-18) mg/dL Creatinine (0.51-1.17) mg/dL Est Cr Clr Drug Dosing Estimated GFR (MDRD) mL/min Glucose (70-99) mg/dL POC Glucose (65-110) mg/dl Hemoglobin A1c (4.3-5.7) % Lactic Acid 4.4 H 4.1 H (0.4-2.0) mmol/L Uric Acid (2.6-7.2) mg/dL Calcium (8.5-10.1) mg/dL Magnesium (1.8-2.4) mg/dL Total Bilirubin (0.2-1.0) mg/dL AST (15-37) U/L ALT (12-78) U/L Alkaline Phosphatase (46-116) IU/L Creatine Kinase 33 (26-308) U/L Creatine Kinase Index 1.2 (0.0-2.5) % CK-MB (CK-2) 0.40 (0.00-3.60) ng/mL Troponin I 0.009 (0.000-0.056) ng/mL NT-Pro-B Natriuret Pep (0-125) pg/mL Total Protein (6.4-8.2) g/dL Albumin (3.4-5.0) g/dL Triglycerides (30-150) mg/dL Cholesterol (100-200) mg/dL LDL Cholesterol, Calc (0-100) mg/dL HDL Cholesterol (40-60) mg/dL TSH, Ultra Sensitive (0.358-3.740) mIU/mL Specimen Type Urine Color Urine Appearance Urine pH (5.0-9.0) Ur Specific [place] (1.005-1.030) Urine Protein (NEGATIVE) mg/dL Urine Glucose (UA) (NEGATIVE) mg/dL Urine Ketones (NEGATIVE) mg/dL Urine Occult Blood (NEGATIVE) Urine Nitrite (NEGATIVE) Urine Bilirubin (NEGATIVE) Urine Urobilinogen (0.2-1.0) E.U./dL Ur Leukocyte Esterase (NEGATIVE) Urine RBC /HPF Urine WBC /HPF Ur Epithelial Cells /LPF Urine Bacteria (NONE TO FEW) /HPF 10/30/20 10/30/20 10/30/20 Range/Units 07:30 07:30 07:30 WBC 7.0 (4.0-10.2) K/uL RBC 3.43 L (4.33-5.41) M/uL Hgb 11.3 L (13.1-16.8) g/dL Hct 35.1 L (39.0-49.0) % MCV 102.3 H (84.0-98.0) fL MCH 32.9 (28.2-33.3) pg MCHC 32.2 (31.7-36.0) g/dL RDW 14.9 H (11.2-14.1) % Plt Count 266 D (150-350) K/uL Neut % (Auto) 59.0 (45.0-80.0) % Lymph % (Auto) 27.9 (10.0-50.0) % [place] % (Auto) 10.4 (2.0-14.0) % Eos % (Auto) 2.1 (0.0-5.0) % Baso % (Auto) 0.6 (0.0-2.0) % Neut # (Auto) 4.12 (1.40-7.00) K/uL Lymph # (Auto) 1.95 (0.50-3.50) K/uL [place] # (Auto) 0.73 (0.00-1.00) K/uL Eos # (Auto) 0.15 (0.00-0.50) K/uL Baso # (Auto) 0.04 (0.00-0.20) K/uL PT (9.5-12.0) SEC INR APTT (24.5-32.8) SEC D-Dimer, Quantitative 1250 H (0-400) ng/mL Sodium 139 (136-145) mmol/L Potassium 4.3 (3.5-5.1) mmol/L Chloride 102 (98-107) mmol/L Carbon Dioxide 29.9 (21.0-32.0) mmol/L BUN 11 (7-18) mg/dL Creatinine 1.11 (0.51-1.17) mg/dL Est Cr Clr Drug Dosing 72.82 Estimated GFR (MDRD) > 60 mL/min Glucose 107 H (70-99) mg/dL POC Glucose (65-110) mg/dl Hemoglobin A1c (4.3-5.7) % Lactic Acid (0.4-2.0) mmol/L Uric Acid (2.6-7.2) mg/dL Calcium 7.8 L (8.5-10.1) mg/dL Magnesium (1.8-2.4) mg/dL Total Bilirubin 0.7 (0.2-1.0) mg/dL AST 65 H (15-37) U/L ALT 28 (12-78) U/L Alkaline Phosphatase 237 H (46-116) IU/L Creatine Kinase 40 (26-308) U/L Creatine Kinase Index 0.8 (0.0-2.5) % CK-MB (CK-2) 0.30 (0.00-3.60) ng/mL Troponin I 0.016 (0.000-0.056) ng/mL NT-Pro-B Natriuret Pep 579 H (0-125) pg/mL Total Protein 5.9 L (6.4-8.2) g/dL Albumin 1.9 L (3.4-5.0) g/dL Triglycerides 199 H (30-150) mg/dL Cholesterol 90 L (100-200) mg/dL LDL Cholesterol, Calc 29 (0-100) mg/dL HDL Cholesterol 21 L (40-60) mg/dL TSH, Ultra Sensitive (0.358-3.740) mIU/mL Specimen Type Urine Color Urine Appearance Urine pH (5.0-9.0) Ur Specific [place] (1.005-1.030) Urine Protein (NEGATIVE) mg/dL Urine Glucose (UA) (NEGATIVE) mg/dL Urine Ketones (NEGATIVE) mg/dL Urine Occult Blood (NEGATIVE) Urine Nitrite (NEGATIVE) Urine Bilirubin (NEGATIVE) Urine Urobilinogen (0.2-1.0) E.U./dL Ur Leukocyte Esterase (NEGATIVE) Urine RBC /HPF Urine WBC /HPF Ur Epithelial Cells /LPF Urine Bacteria (NONE TO FEW) /HPF 10/30/20 10/30/20 Range/Units 07:30 07:30 WBC (4.0-10.2) K/uL RBC (4.33-5.41) M/uL Hgb (13.1-16.8) g/dL Hct (39.0-49.0) % MCV (84.0-98.0) fL MCH (28.2-33.3) pg MCHC (31.7-36.0) g/dL RDW (11.2-14.1) % Plt Count (150-350) K/uL Neut % (Auto) (45.0-80.0) % Lymph % (Auto) (10.0-50.0) % [place] % (Auto) (2.0-14.0) % Eos % (Auto) (0.0-5.0) % Baso % (Auto) (0.0-2.0) % Neut # (Auto) (1.40-7.00) K/uL Lymph # (Auto) (0.50-3.50) K/uL [place] # (Auto) (0.00-1.00) K/uL Eos # (Auto) (0.00-0.50) K/uL Baso # (Auto) (0.00-0.20) K/uL PT (9.5-12.0) SEC INR APTT (24.5-32.8) SEC D-Dimer, Quantitative (0-400) ng/mL Sodium (136-145) mmol/L Potassium (3.5-5.1) mmol/L Chloride (98-107) mmol/L Carbon Dioxide (21.0-32.0) mmol/L BUN (7-18) mg/dL Creatinine (0.51-1.17) mg/dL Est Cr Clr Drug Dosing Estimated GFR (MDRD) mL/min Glucose (70-99) mg/dL POC Glucose (65-110) mg/dl Hemoglobin A1c 5.9 H (4.3-5.7) % Lactic Acid 3.3 H (0.4-2.0) mmol/L Uric Acid (2.6-7.2) mg/dL Calcium (8.5-10.1) mg/dL Magnesium (1.8-2.4) mg/dL Total Bilirubin (0.2-1.0) mg/dL AST (15-37) U/L ALT (12-78) U/L Alkaline Phosphatase (46-116) IU/L Creatine Kinase (26-308) U/L Creatine Kinase Index (0.0-2.5) % CK-MB (CK-2) (0.00-3.60) ng/mL Troponin I (0.000-0.056) ng/mL NT-Pro-B Natriuret Pep (0-125) pg/mL Total Protein (6.4-8.2) g/dL Albumin (3.4-5.0) g/dL Triglycerides (30-150) mg/dL Cholesterol (100-200) mg/dL LDL Cholesterol, Calc (0-100) mg/dL HDL Cholesterol (40-60) mg/dL TSH, Ultra Sensitive (0.358-3.740) mIU/mL Specimen Type Urine Color Urine Appearance Urine pH (5.0-9.0) Ur Specific [place] (1.005-1.030) Urine Protein (NEGATIVE) mg/dL Urine Glucose (UA) (NEGATIVE) mg/dL Urine Ketones (NEGATIVE) mg/dL Urine Occult Blood (NEGATIVE) Urine Nitrite (NEGATIVE) Urine Bilirubin (NEGATIVE) Urine Urobilinogen (0.2-1.0) E.U./dL Ur Leukocyte Esterase (NEGATIVE) Urine RBC /HPF Urine WBC /HPF Ur Epithelial Cells /LPF Urine Bacteria (NONE TO FEW) /HPF [place] Results Last 24 Hours: Urine culture and sensitivity is pending Med Orders - Current: Current Medications Acetaminophen (Tylenol) 650 mg PO Q4H PRN PRN Reason: Pain Cyanocobalamin (Vitamin B12) 1,000 mcg PO DAILY [facility] Last Admin: 10/30/20 07:28 Dose: 1,000 mcg Documented by: Dextrose/Water (Dextrose 50% In Water) 50 ml IV ASDIRECTED PRN PRN Reason: Hypoglycemia Enoxaparin Sodium (Lovenox) 100 mg SUBCUT Q24H [facility] Last Admin: 10/30/20 00:09 Dose: 100 mg Documented by: Fish Oil (Fish Oil) 1 gm PO Q12HR [facility] Last Admin: 10/30/20 07:30 Dose: 1 gm Documented by: Fluticasone Propionate (Flonase) 0 gm NASBOTH DAILY PRN PRN Reason: Allergies Last Admin: 10/30/20 07:27 Dose: 1 spray Documented by: Furosemide (Lasix) 40 mg IVPUSH Q8H [facility] Last Admin: 10/30/20 06:15 Dose: 40 mg Documented by: Gabapentin (Neurontin) 600 mg PO 0000,1200 [facility] Last Admin: 10/30/20 00:08 Dose: 600 mg Documented by: Gabapentin (Neurontin) 600 mg PO 0800,1600,2000 [facility] Last Admin: 10/30/20 07:37 Dose: 600 mg Documented by: Glucagon (Glucagen) 1 mg IM ASDIRECTED PRN PRN Reason: Hypoglycemia Hydroxyzine Pamoate (Vistaril) 25 mg PO Q6H PRN PRN Reason: Nausea Last Admin: 10/30/20 07:28 Dose: 25 mg Documented by: Lactated Ringer's (Ringers, Lactated) 1,000 mls @ 100 mls/hr IV ASDIRECTED [facility] Last Admin: 10/29/20 21:42 Dose: 100 mls/hr Documented by: Insulin Human Lispro (Humalog) 0 unit SUBCUT QIDACANDBED [facility]; Protocol Loperamide HCl (Imodium Ad) 2 mg PO BEDTIME [facility] Last Admin: 10/30/20 00:06 Dose: 2 mg Documented by: Lorazepam (Ativan) 1 mg IVPUSH Q4H PRN PRN Reason: Anxiety Losartan Potassium (Cozaar) 100 mg PO DAILY [facility] Last Admin: 10/30/20 07:29 Dose: 100 mg Documented by: Magnesium Oxide (Magnesium Oxide) 400 mg PO BID [facility] Last Admin: 10/30/20 07:29 Dose: 400 mg Documented by: Metoprolol Tartrate (Lopressor) 50 mg PO Q12HR [facility] Last Admin: 10/30/20 07:28 Dose: 50 mg Documented by: Multivitamins/Minerals/Vitamin C (Tab-A-Barbie) 1 tab PO DAILY [facility] Last Admin: 10/30/20 07:29 Dose: 1 tab Documented by: Oxycodone HCl (Oxycodone) 5 mg PO Q6HR PRN PRN Reason: Pain Last Admin: 10/30/20 07:28 Dose: 5 mg Documented by: Pantoprazole Sodium (Protonix Iv) 40 mg IVPUSH 08,1999 [facility] Last Admin: 10/30/20 07:31 Dose: 40 mg Documented by: Potassium Chloride (Klor-Con M20) 20 meq PO TID [facility] Last Admin: 10/30/20 07:30 Dose: 20 meq Documented by: Pramipexole Dihydrochloride (Mirapex) 0.25 mg PO Q12HR [facility] Last Admin: 10/30/20 07:30 Dose: 0.25 mg Documented by: Primidone (Mysoline) 50 mg PO Q12HR [facility] Last Admin: 10/30/20 07:31 Dose: 50 mg Documented by: Simvastatin (Zocor) 20 mg PO BEDTIME [facility] Sodium Chloride (Saline Flush) 10 ml FLUSH ASDIRECTED PRN PRN Reason: Keep Vein Open Last Admin: 10/30/20 07:32 Dose: 10 ml Documented by: Sodium Chloride (Saline Flush) 10 ml FLUSH Q12HR PRN PRN Reason: Keep Vein Open Discontinued Medications Aspirin (Aspirin) 324 mg CHEW ONETIME ONE Stop: 10/29/20 18:40 Last Admin: 10/29/20 18:53 Dose: 324 mg Documented by: Famotidine (Pepcid) 40 mg IVPUSH ONETIME ONE Stop: 10/29/20 18:40 Last Admin: 10/29/20 18:53 Dose: 40 mg Documented by: Lactated Ringer's (Ringers, Lactated) 1,000 mls @ 999 mls/hr IV .BOLUS ONE Stop: 10/29/20 20:35 Last Admin: 10/29/20 20:00 Dose: 999 mls/hr Documented by: Magnesium Sulfate (Magnesium Sulfate In Water 4 Gm/100 Ml) 4 gm in 100 mls @ 25 mls/hr IV ONETIME ONE Stop: 10/30/20 02:34 Last Admin: 10/30/20 00:05 Dose: 25 mls/hr Documented by: Iopamidol (Isovue-370 (76%)) 100 ml IVPUSH ONETIME ONE Stop: 10/29/20 13:01 Last Admin: 10/30/20 07:33 Dose: Not Given Documented by: Iopamidol (Isovue-370 (76%)) Confirm Administered Dose 100 ml .ROUTE .STK-MED ONE Stop: 10/29/20 19:54 Last Admin: 10/29/20 20:00 Dose: 100 ml Documented by: Lidocaine HCl (Glydo) Confirm Administered Dose 11 ml .ROUTE .STK-MED ONE Stop: 10/29/20 22:56 Last Admin: 10/30/20 00:09 Dose: 11 ml Documented by: Lorazepam (Ativan) 1 mg IVPUSH ONETIME ONE Stop: 10/29/20 20:08 Last Admin: 10/29/20 20:17 Dose: 1 mg Documented by: Pantoprazole Sodium (Protonix Iv) 40 mg IVPUSH ONETIME ONE Stop: 10/29/20 20:09 Last Admin: 10/29/20 20:17 Dose: 40 mg Documented by: Temazepam (Restoril) 15 mg PO BEDTIME PRN PRN Reason: Insomnia Ticagrelor (Brilinta) 180 mg PO ONETIME ONE Stop: 10/29/20 18:40 Last Admin: 10/29/20 18:53 Dose: 180 mg Documented by: - Exam Quality Assessment: Supplemental Oxygen, Urine Catheter, DVT Prophylaxis (Lovenox). No: Central Line/PICC, Skin Breakdown, Restraints General: Alert, Oriented, Cooperative, No Acute Distress HEENT: Pupils Equal, Pupils Reactive, EOMI, Mucous Membr. Moist/[place]. No: Scleral Icterus Neck: Supple, Trachea Midline, No JVD, No Thyromegaly. No: Lymphadenopathy Lungs: Normal Respiratory Effort, Rales (Mild bilateral baseline). No: Rhonchi, Rub, Wheezing Cardiovascular: Regular Rate, Regular Rhythm, No Murmurs. No: Gallops, Rubs GI/Abdominal Exam: Normal Bowel Sounds, Soft, Non-Tender, No Organomegaly, No Distention, No Abnormal Bruit, No Mass, Other (Morbidly obese). No: Guarding (Male) Exam: Deferred Back Exam: Normal Inspection, Full Range of Motion. No: CVA Tenderness (L), CVA Tenderness (R), Muscle Spasm, Paraspinal Tenderness, Vertebral Tenderness Extremities: Normal Range of Motion, Non-Tender, Pedal Edema (Persistent +2 bilateral pedal/pretibial edema). No: Reza's Sign Peripheral Pulses: 2+: Radial (L), Radial (R), Dorsalis Pedis (L), Dorsalis Pedis (R) Skin: Ecchymosis (Mild at Lovenox sites) Neurological: No New Focal Deficit, Other (Severe weakness as above) Psy/Mental Status: Alert, Anxious (Mild to moderate), Depressed (Borderline). No: Agitated, Hallucinations, Withdrawal Symptoms #1 Interpretation EKG Date: 10/30/20 Time: 07:38 Rhythm: NSR Rate (Beats/Min): 77 [place]: Normal (Neutral) P-Wave: Present QRS: Normal (0.09 seconds) ST-T: Normal (Possible beginning returned T wave inversion in lead V1 with otherwise nonspecific ST changes in the anterior leads) QT: Prolonged (New- with 426/482 ms) AR/PQ Interval: 0.23 seconds representing a relatively stable first-degree AV block with stable poor R wave progression in the anterior leads Comparison: Change From Previous EKG (As above since 10/29/2020.) EKG Interpretation Comments: 1. No acute ischemic changes 2. First-degree AV block 3. Borderline prolonged QT - Patient Data Lab Results Last 24 hrs: Laboratory Results - last 24 hr 10/29/20 10/29/20 10/29/20 Range/Units 03:55 18:41 18:48 WBC 9.3 (4.0-10.2) K/uL RBC 3.53 L (4.33-5.41) M/uL Hgb 11.7 L (13.1-16.8) g/dL Hct 35.7 L (39.0-49.0) % MCV 101.1 H D (84.0-98.0) fL MCH 33.1 (28.2-33.3) pg MCHC 32.8 (31.7-36.0) g/dL RDW 14.4 H (11.2-14.1) % Plt Count 351 H D (150-350) K/uL Neut % (Auto) 71.8 (45.0-80.0) % Lymph % (Auto) 18.3 (10.0-50.0) % [place] % (Auto) 8.4 (2.0-14.0) % Eos % (Auto) 1.2 (0.0-5.0) % Baso % (Auto) 0.3 (0.0-2.0) % Neut # (Auto) 6.69 (1.40-7.00) K/uL Lymph # (Auto) 1.70 (0.50-3.50) K/uL [place] # (Auto) 0.78 (0.00-1.00) K/uL Eos # (Auto) 0.11 (0.00-0.50) K/uL Baso # (Auto) 0.03 (0.00-0.20) K/uL PT (9.5-12.0) SEC INR APTT (24.5-32.8) SEC D-Dimer, Quantitative (0-400) ng/mL Sodium (136-145) mmol/L Potassium (3.5-5.1) mmol/L Chloride (98-107) mmol/L Carbon Dioxide (21.0-32.0) mmol/L BUN (7-18) mg/dL Creatinine (0.51-1.17) mg/dL Est Cr Clr Drug Dosing Estimated GFR (MDRD) mL/min Glucose (70-99) mg/dL POC Glucose 126 H (65-110) mg/dl Hemoglobin A1c (4.3-5.7) % Lactic Acid (0.4-2.0) mmol/L Uric Acid (2.6-7.2) mg/dL Calcium (8.5-10.1) mg/dL Magnesium (1.8-2.4) mg/dL Total Bilirubin (0.2-1.0) mg/dL AST (15-37) U/L ALT (12-78) U/L Alkaline Phosphatase (46-116) IU/L Creatine Kinase (26-308) U/L Creatine Kinase Index (0.0-2.5) % CK-MB (CK-2) (0.00-3.60) ng/mL Troponin I (0.000-0.056) ng/mL NT-Pro-B Natriuret Pep (0-125) pg/mL Total Protein (6.4-8.2) g/dL Albumin (3.4-5.0) g/dL Triglycerides (30-150) mg/dL Cholesterol (100-200) mg/dL LDL Cholesterol, Calc (0-100) mg/dL HDL Cholesterol (40-60) mg/dL TSH, Ultra Sensitive (0.358-3.740) mIU/mL Specimen Type [place] Urine Color Yellow Urine Appearance Clear Urine pH 6.0 (5.0-9.0) Ur Specific [place] 1.015 (1.005-1.030) Urine Protein Negative (NEGATIVE) mg/dL Urine Glucose (UA) Negative (NEGATIVE) mg/dL Urine Ketones Negative (NEGATIVE) mg/dL Urine Occult Blood Moderate H (NEGATIVE) Urine Nitrite Negative (NEGATIVE) Urine Bilirubin Negative (NEGATIVE) Urine Urobilinogen 0.2 (0.2-1.0) E.U./dL Ur Leukocyte Esterase Negative (NEGATIVE) Urine RBC 30-40 H /HPF Urine WBC 0-5 /HPF Ur Epithelial Cells Few /LPF Urine Bacteria Rare (NONE TO FEW) /HPF 10/29/20 10/29/20 10/29/20 Range/Units 18:48 18:48 18:48 WBC (4.0-10.2) K/uL RBC (4.33-5.41) M/uL Hgb (13.1-16.8) g/dL Hct (39.0-49.0) % MCV (84.0-98.0) fL MCH (28.2-33.3) pg MCHC (31.7-36.0) g/dL RDW (11.2-14.1) % Plt Count (150-350) K/uL Neut % (Auto) (45.0-80.0) % Lymph % (Auto) (10.0-50.0) % [place] % (Auto) (2.0-14.0) % Eos % (Auto) (0.0-5.0) % Baso % (Auto) (0.0-2.0) % Neut # (Auto) (1.40-7.00) K/uL Lymph # (Auto) (0.50-3.50) K/uL [place] # (Auto) (0.00-1.00) K/uL Eos # (Auto) (0.00-0.50) K/uL Baso # (Auto) (0.00-0.20) K/uL PT 11.3 (9.5-12.0) SEC INR 1.1 APTT 25.9 (24.5-32.8) SEC D-Dimer, Quantitative 1690 H (0-400) ng/mL Sodium 137 (136-145) mmol/L Potassium 4.9 (3.5-5.1) mmol/L Chloride 102 (98-107) mmol/L Carbon Dioxide 25.6 (21.0-32.0) mmol/L BUN 11 (7-18) mg/dL Creatinine 1.15 (0.51-1.17) mg/dL Est Cr Clr Drug Dosing TNP Estimated GFR (MDRD) > 60 mL/min Glucose 135 H (70-99) mg/dL POC Glucose (65-110) mg/dl Hemoglobin A1c (4.3-5.7) % Lactic Acid (0.4-2.0) mmol/L Uric Acid 7.6 H (2.6-7.2) mg/dL Calcium 7.7 L (8.5-10.1) mg/dL Magnesium 1.1 L (1.8-2.4) mg/dL Total Bilirubin 0.4 (0.2-1.0) mg/dL AST 83 H (15-37) U/L ALT 33 (12-78) U/L Alkaline Phosphatase 245 H (46-116) IU/L Creatine Kinase 41 (26-308) U/L Creatine Kinase Index 1.0 (0.0-2.5) % CK-MB (CK-2) 0.40 (0.00-3.60) ng/mL Troponin I 0.012 (0.000-0.056) ng/mL NT-Pro-B Natriuret Pep 500 H (0-125) pg/mL Total Protein 6.1 L (6.4-8.2) g/dL Albumin 2.0 L (3.4-5.0) g/dL Triglycerides (30-150) mg/dL Cholesterol (100-200) mg/dL LDL Cholesterol, Calc (0-100) mg/dL HDL Cholesterol (40-60) mg/dL TSH, Ultra Sensitive 3.045 (0.358-3.740) mIU/mL Specimen Type Urine Color Urine Appearance Urine pH (5.0-9.0) Ur Specific [place] (1.005-1.030) Urine Protein (NEGATIVE) mg/dL Urine Glucose (UA) (NEGATIVE) mg/dL Urine Ketones (NEGATIVE) mg/dL Urine Occult Blood (NEGATIVE) Urine Nitrite (NEGATIVE) Urine Bilirubin (NEGATIVE) Urine Urobilinogen (0.2-1.0) E.U./dL Ur Leukocyte Esterase (NEGATIVE) Urine RBC /HPF Urine WBC /HPF Ur Epithelial Cells /LPF Urine Bacteria (NONE TO FEW) /HPF 10/29/20 10/29/20 10/29/20 Range/Units 18:48 22:45 22:45 WBC (4.0-10.2) K/uL RBC (4.33-5.41) M/uL Hgb (13.1-16.8) g/dL Hct (39.0-49.0) % MCV (84.0-98.0) fL MCH (28.2-33.3) pg MCHC (31.7-36.0) g/dL RDW (11.2-14.1) % Plt Count (150-350) K/uL Neut % (Auto) (45.0-80.0) % Lymph % (Auto) (10.0-50.0) % [place] % (Auto) (2.0-14.0) % Eos % (Auto) (0.0-5.0) % Baso % (Auto) (0.0-2.0) % Neut # (Auto) (1.40-7.00) K/uL Lymph # (Auto) (0.50-3.50) K/uL [place] # (Auto) (0.00-1.00) K/uL Eos # (Auto) (0.00-0.50) K/uL Baso # (Auto) (0.00-0.20) K/uL PT (9.5-12.0) SEC INR APTT (24.5-32.8) SEC D-Dimer, Quantitative (0-400) ng/mL Sodium (136-145) mmol/L Potassium (3.5-5.1) mmol/L Chloride (98-107) mmol/L Carbon Dioxide (21.0-32.0) mmol/L BUN (7-18) mg/dL Creatinine (0.51-1.17) mg/dL Est Cr Clr Drug Dosing Estimated GFR (MDRD) mL/min Glucose (70-99) mg/dL POC Glucose (65-110) mg/dl Hemoglobin A1c (4.3-5.7) % Lactic Acid 4.4 H 4.1 H (0.4-2.0) mmol/L Uric Acid (2.6-7.2) mg/dL Calcium (8.5-10.1) mg/dL Magnesium (1.8-2.4) mg/dL Total Bilirubin (0.2-1.0) mg/dL AST (15-37) U/L ALT (12-78) U/L Alkaline Phosphatase (46-116) IU/L Creatine Kinase 33 (26-308) U/L Creatine Kinase Index 1.2 (0.0-2.5) % CK-MB (CK-2) 0.40 (0.00-3.60) ng/mL Troponin I 0.009 (0.000-0.056) ng/mL NT-Pro-B Natriuret Pep (0-125) pg/mL Total Protein (6.4-8.2) g/dL Albumin (3.4-5.0) g/dL Triglycerides (30-150) mg/dL Cholesterol (100-200) mg/dL LDL Cholesterol, Calc (0-100) mg/dL HDL Cholesterol (40-60) mg/dL TSH, Ultra Sensitive (0.358-3.740) mIU/mL Specimen Type Urine Color Urine Appearance Urine pH (5.0-9.0) Ur Specific [place] (1.005-1.030) Urine Protein (NEGATIVE) mg/dL Urine Glucose (UA) (NEGATIVE) mg/dL Urine Ketones (NEGATIVE) mg/dL Urine Occult Blood (NEGATIVE) Urine Nitrite (NEGATIVE) Urine Bilirubin (NEGATIVE) Urine Urobilinogen (0.2-1.0) E.U./dL Ur Leukocyte Esterase (NEGATIVE) Urine RBC /HPF Urine WBC /HPF Ur Epithelial Cells /LPF Urine Bacteria (NONE TO FEW) /HPF 10/30/20 10/30/20 10/30/20 Range/Units 07:30 07:30 07:30 WBC 7.0 (4.0-10.2) K/uL RBC 3.43 L (4.33-5.41) M/uL Hgb 11.3 L (13.1-16.8) g/dL Hct 35.1 L (39.0-49.0) % MCV 102.3 H (84.0-98.0) fL MCH 32.9 (28.2-33.3) pg MCHC 32.2 (31.7-36.0) g/dL RDW 14.9 H (11.2-14.1) % Plt Count 266 D (150-350) K/uL Neut % (Auto) 59.0 (45.0-80.0) % Lymph % (Auto) 27.9 (10.0-50.0) % [place] % (Auto) 10.4 (2.0-14.0) % Eos % (Auto) 2.1 (0.0-5.0) % Baso % (Auto) 0.6 (0.0-2.0) % Neut # (Auto) 4.12 (1.40-7.00) K/uL Lymph # (Auto) 1.95 (0.50-3.50) K/uL [place] # (Auto) 0.73 (0.00-1.00) K/uL Eos # (Auto) 0.15 (0.00-0.50) K/uL Baso # (Auto) 0.04 (0.00-0.20) K/uL PT (9.5-12.0) SEC INR APTT (24.5-32.8) SEC D-Dimer, Quantitative 1250 H (0-400) ng/mL Sodium 139 (136-145) mmol/L Potassium 4.3 (3.5-5.1) mmol/L Chloride 102 (98-107) mmol/L Carbon Dioxide 29.9 (21.0-32.0) mmol/L BUN 11 (7-18) mg/dL Creatinine 1.11 (0.51-1.17) mg/dL Est Cr Clr Drug Dosing 72.82 Estimated GFR (MDRD) > 60 mL/min Glucose 107 H (70-99) mg/dL POC Glucose (65-110) mg/dl Hemoglobin A1c (4.3-5.7) % Lactic Acid (0.4-2.0) mmol/L Uric Acid (2.6-7.2) mg/dL Calcium 7.8 L (8.5-10.1) mg/dL Magnesium (1.8-2.4) mg/dL Total Bilirubin 0.7 (0.2-1.0) mg/dL AST 65 H (15-37) U/L ALT 28 (12-78) U/L Alkaline Phosphatase 237 H (46-116) IU/L Creatine Kinase 40 (26-308) U/L Creatine Kinase Index 0.8 (0.0-2.5) % CK-MB (CK-2) 0.30 (0.00-3.60) ng/mL Troponin I 0.016 (0.000-0.056) ng/mL NT-Pro-B Natriuret Pep 579 H (0-125) pg/mL Total Protein 5.9 L (6.4-8.2) g/dL Albumin 1.9 L (3.4-5.0) g/dL Triglycerides 199 H (30-150) mg/dL Cholesterol 90 L (100-200) mg/dL LDL Cholesterol, Calc 29 (0-100) mg/dL HDL Cholesterol 21 L (40-60) mg/dL TSH, Ultra Sensitive (0.358-3.740) mIU/mL Specimen Type Urine Color Urine Appearance Urine pH (5.0-9.0) Ur Specific [place] (1.005-1.030) Urine Protein (NEGATIVE) mg/dL Urine Glucose (UA) (NEGATIVE) mg/dL Urine Ketones (NEGATIVE) mg/dL Urine Occult Blood (NEGATIVE) Urine Nitrite (NEGATIVE) Urine Bilirubin (NEGATIVE) Urine Urobilinogen (0.2-1.0) E.U./dL Ur Leukocyte Esterase (NEGATIVE) Urine RBC /HPF Urine WBC /HPF Ur Epithelial Cells /LPF Urine Bacteria (NONE TO FEW) /HPF 10/30/20 10/30/20 Range/Units 07:30 07:30 WBC (4.0-10.2) K/uL RBC (4.33-5.41) M/uL Hgb (13.1-16.8) g/dL Hct (39.0-49.0) % MCV (84.0-98.0) fL MCH (28.2-33.3) pg MCHC (31.7-36.0) g/dL RDW (11.2-14.1) % Plt Count (150-350) K/uL Neut % (Auto) (45.0-80.0) % Lymph % (Auto) (10.0-50.0) % [place] % (Auto) (2.0-14.0) % Eos % (Auto) (0.0-5.0) % Baso % (Auto) (0.0-2.0) % Neut # (Auto) (1.40-7.00) K/uL Lymph # (Auto) (0.50-3.50) K/uL [place] # (Auto) (0.00-1.00) K/uL Eos # (Auto) (0.00-0.50) K/uL Baso # (Auto) (0.00-0.20) K/uL PT (9.5-12.0) SEC INR APTT (24.5-32.8) SEC D-Dimer, Quantitative (0-400) ng/mL Sodium (136-145) mmol/L Potassium (3.5-5.1) mmol/L Chloride (98-107) mmol/L Carbon Dioxide (21.0-32.0) mmol/L BUN (7-18) mg/dL Creatinine (0.51-1.17) mg/dL Est Cr Clr Drug Dosing Estimated GFR (MDRD) mL/min Glucose (70-99) mg/dL POC Glucose (65-110) mg/dl Hemoglobin A1c 5.9 H (4.3-5.7) % Lactic Acid 3.3 H (0.4-2.0) mmol/L Uric Acid (2.6-7.2) mg/dL Calcium (8.5-10.1) mg/dL Magnesium (1.8-2.4) mg/dL Total Bilirubin (0.2-1.0) mg/dL AST (15-37) U/L ALT (12-78) U/L Alkaline Phosphatase (46-116) IU/L Creatine Kinase (26-308) U/L Creatine Kinase Index (0.0-2.5) % CK-MB (CK-2) (0.00-3.60) ng/mL Troponin I (0.000-0.056) ng/mL NT-Pro-B Natriuret Pep (0-125) pg/mL Total Protein (6.4-8.2) g/dL Albumin (3.4-5.0) g/dL Triglycerides (30-150) mg/dL Cholesterol (100-200) mg/dL LDL Cholesterol, Calc (0-100) mg/dL HDL Cholesterol (40-60) mg/dL TSH, Ultra Sensitive (0.358-3.740) mIU/mL Specimen Type Urine Color Urine Appearance Urine pH (5.0-9.0) Ur Specific [place] (1.005-1.030) Urine Protein (NEGATIVE) mg/dL Urine Glucose (UA) (NEGATIVE) mg/dL Urine Ketones (NEGATIVE) mg/dL Urine Occult Blood (NEGATIVE) Urine Nitrite (NEGATIVE) Urine Bilirubin (NEGATIVE) Urine Urobilinogen (0.2-1.0) E.U./dL Ur Leukocyte Esterase (NEGATIVE) Urine RBC /HPF Urine WBC /HPF Ur Epithelial Cells /LPF Urine Bacteria (NONE TO FEW) /HPF Result Diagrams: 10/30/20 07:30 10/30/20 07:30 Sepsis Event Note - Evaluation Sepsis Screening Result: No Definite Risk - Focused Exam Vital Signs: Vital Signs Temp Temp Pulse Pulse Resp BP BP 10/30/20 07:43 36.4 C 78 22 H 117/85 10/30/20 07:29 117/85 10/30/20 07:28 78 117/85 02/23/21 04:00 36.3 C 86 20 113/64 10/30/20 02:10 36.6 C 72 18 107/60 10/30/20 00:00 36.6 C 80 18 129/77 10/29/20 22:31 10/29/20 22:15 36.3 C 77 20 126/92 H 10/29/20 21:55 78 16 127/90 10/29/20 21:15 36.2 C 80 20 142/74 H 10/29/20 20:45 79 20 136/76 Pulse Ox 10/30/20 07:43 98 10/30/20 07:29 10/30/20 07:28 10/30/20 04:00 98 10/30/20 02:10 100 10/30/20 00:00 100 10/29/20 22:31 98 10/29/20 22:15 100 10/29/20 21:55 97 10/29/20 21:15 98 10/29/20 20:45 98 - Problem List & Annotations (1) CHF (congestive heart failure) SNOMED Code(s): 89760187 Code(s): I50.9 - HEART FAILURE, UNSPECIFIED Status: Acute Priority: High Current Visit: Yes Onset Date: ~10/29/20 Qualifiers: Heart failure type: unspecified Heart failure chronicity: acute on chronic Qualified Code(s): I50.9 - Heart failure, unspecified Annotation/Comment:: No chest pain or anginal type symptoms with chest pain protocol not initiated in the emergency room. Initiated standard rule out [place] orders on admission, which are negative to this point. Note persistent BNP elevation. Echocardiogram to be conducted on 10/30. Cardiology consultation depending on his clinical course. Initiated IV Lasix therapy after admission with IV bolus of lactated Ringer's required secondary to lactic acid elevation as below. (2) Ascites SNOMED Code(s): 842333858 Code(s): R18.8 - OTHER ASCITES Status: Chronic Priority: Medium Current Visit: Yes Qualifiers: Ascites type: other type Qualified Code(s): R18.8 - Other ascites Annotation/Comment:: Incidental findings. Note moderate alcohol use and mildly elevated LFTs. Further work-up depending on his clinical course. Continue IV Lasix as above. (3) D-dimer, elevated SNOMED Code(s): 213512997 Code(s): R79.89 - OTHER SPECIFIED ABNORMAL FINDINGS OF BLOOD CHEMISTRY Status: Acute Priority: Medium Current Visit: Yes Onset Date: 10/29/20 Annotation/Comment:: Suboptimal CTA of the chest, which was negative as above. Venous Doppler studies are being conducted this morning. Subcu Lovenox at VTE dose for now. No direct clinical evidence of DVT or PE (4) Diabetes mellitus SNOMED Code(s): 25666510 Code(s): E11.9 - TYPE 2 DIABETES MELLITUS WITHOUT COMPLICATIONS Status: Chronic Priority: Medium Current Visit: Yes Qualifiers: Diabetes mellitus type: type 2 Diabetes mellitus alf insulin use: without extermination inspector use Diabetes mellitus complication status: with kidney complications Diabetes mellitus complication detail: with chronic kidney disease Chronic kidney disease stage: stage 3 (moderate) Chronic kidney disease stage 3 subtype: stage 3a (GFR 45-59) Qualified Code(s): E11.22 - Type 2 diabetes mellitus with diabetic chronic kidney disease; N18.31 - Chronic kidney disease, stage 3a Annotation/Comment:: Blood sugars under good control with current Humalog sliding scale. No hypoglycemic symptoms with stat Accu-Chek of 126 immediately on arrival to our emergency room. Glycosylated hemoglobin in the a.m. Initiated sliding scale secondary to Metformin being on hold from his IV contrast in the emergency room with resumption of Metformin versus initiation of possible insulin therapy on 11/01. Glycosylated hemoglobin on 10/30 was excellent at 5.9%, however. Patient has been noncompliant with his home Accu-Cheks with compliance with Accu-Cheks to be encouraged at time of discharge. (5) Elevated LFTs SNOMED Code(s): 453119121 Code(s): R79.89 - OTHER SPECIFIED ABNORMAL FINDINGS OF BLOOD CHEMISTRY Status: Acute Priority: Medium Current Visit: Yes Onset Date: 10/29/20 Annotation/Comment:: Somewhat improved since admission. Possible CHF and/or fatty liver component. Note alcohol use as above. Observe for now. (6) Elevated lactic acid level SNOMED Code(s): 5312280 Code(s): R79.89 - OTHER SPECIFIED ABNORMAL FINDINGS OF BLOOD CHEMISTRY Status: Acute Priority: High Current Visit: Yes Onset Date: 10/29/20 Annotation/Comment:: No clinical evidence of sepsis with no leukocytosis, fever, etc. Patient bolused with 1 L of LR IV with continuation of IV fluids at 100 cc/h with caution secondary to CHF. Initiated sepsis protocol on admission, including repeat lactic acid level in 4 hours. Slowly decreasing lactic acid level with IV hydration as above. Lactic acid level to be repeated in the a.m. on 10/31. No indication of sepsis. Mild microscopic hematuria likely secondary to Farmer catheter placement with urine for culture and sensitivity still pending. (7) Hyperuricemia SNOMED Code(s): 53726967 Code(s): E79.0 - HYPERURICEMIA W/O SIGNS OF INFLAM ARTHRIT AND TOPHACEOUS DIS Status: Acute Priority: Medium Current Visit: Yes Onset Date: 10/29/20 Annotation/Comment:: Newly diagnosed. Observe closely secondary to IV diuresis. (8) Hypoalbuminemia SNOMED Code(s): 245289200 Code(s): E88.09 - OTH DISORDERS OF PLASMA-PROTEIN METABOLISM, NEC Status: Acute Priority: Medium Current Visit: Yes Onset Date: 10/29/20 Annotation/Comment:: Observe for now. (9) Hypocalcemia SNOMED Code(s): 2905512 Code(s): E83.51 - HYPOCALCEMIA Status: Chronic Priority: Medium Current Visit: Yes Annotation/Comment:: Observe for now. (10) Hypomagnesemia SNOMED Code(s): 717161978 Code(s): E83.42 - HYPOMAGNESEMIA Status: Acute Priority: Medium Current Visit: Yes Onset Date: 10/29/20 Annotation/Comment:: Newly diagnosed. IV magnesium sulfate to be initiated shortly after admission with initiation of oral magnesium oxide therapy on 10/30. (11) Macrocytic anemia SNOMED Code(s): 33327306 Code(s): D53.9 - NUTRITIONAL ANEMIA, UNSPECIFIED Status: Acute Priority: Medium Current Visit: Yes Onset Date: 10/29/20 Annotation/Comment:: Anemia work-up in the a.m. (12) Dyslipidemia SNOMED Code(s): 599618117 Code(s): E78.5 - HYPERLIPIDEMIA, UNSPECIFIED Status: Chronic Priority: Medium Current Visit: Yes Annotation/Comment:: Lipid panel on 10/30/2020 showed significant dyslipidemia with HDL of only 21 and persistent hypertriglyceridemia. Note LFTs elevation as above. Consider medical therapy depending on his clinical course. Significant obesity with patient placed on a low calorie ADA, heart healthy, diverticulosis diet. (13) Peptic reflux disease SNOMED Code(s): 313502588 Code(s): K21.9 - GASTRO-ESOPHAGEAL REFLUX DISEASE WITHOUT ESOPHAGITIS Status: Chronic Priority: Medium Current Visit: Yes Annotation/Comment:: IV Pepcid and IV Protonix given in the emergency room. Somewhat symptomatic in the emergency room with no evidence of acute GI bleed. High-dose IV Protonix continued after admission. Note the patient did need additional simethicone as above. (14) Polypharmacy SNOMED Code(s): 933391120 Code(s): Z79.899 - OTHER JAIL (CURRENT) DRUG THERAPY Status: Chronic Priority: High Current Visit: Yes Annotation/Comment:: Significant polypharmacy including chronic narcotic use. Recommend referral to pain clinic with possibility of consultation with our [place] provider after discharge and/or during possible swing bed care. (15) Mixed anxiety depressive disorder SNOMED Code(s): 792540904 Code(s): F41.8 - OTHER SPECIFIED ANXIETY DISORDERS Status: Chronic Priority: Medium Current Visit: Yes Annotation/Comment:: Moderately poor c ontrol based on today's exam. (16) Osteoarthritis SNOMED Code(s): 242605270 Code(s): M19.90 - UNSPECIFIED OSTEOARTHRITIS, UNSPECIFIED SITE Status: Acute Current Visit: Yes Qualifiers: Osteoarthritis location: multiple joints Osteoarthritis type: primary Qualified Code(s): M89.49 - Other hypertrophic osteoarthropathy, multiple sites Annotation/Comment:: Note polypharmacy and chronic narcotic use as above. PT and OT have been ordered secondary to significant generalized weakness and history of recurrent falls. Patient does wish to go home however he is likely a candidate for either swing bed care and/or short-term penitentiary placement. Consider transfer to [facility] bed care unit since a pain clinic provider is available in that area. - Problem List Review Problem List Initiated/Reviewed/Updated: Yes - My Orders Last 24 Hours: My Active Orders 10/29/20 18:39 Sodium Chloride 0.9% [Saline Flush] 10 ml FLUSH ASDIRECTED PRN Resuscitation Status Stat 10/29/20 18:40 Cardiac Monitoring [RC] Q2HR EKG Documentation Completion [RC] ASDIRECTED Peripheral IV Care [RC] . DIRECTED Chest 1V Frontal [CR] Stat Peripheral IV Insertion Adult [OM.PC] Stat 10/29/20 19:35 Chest PE [Ang Chest] [CT] Stat 10/29/20 21:45 Lactated Ringers [Ringers, Lactated] 1,000 ml IV ASDIRECTED 10/29/20 22:29 oxyCODONE 5 mg PO Q6HR PRN 10/29/20 22:30 Acetaminophen [TylenoL] 650 mg PO Q4H PRN Enoxaparin [Lovenox] 100 mg SUBCUT Q24H Furosemide [Lasix] 40 mg IVPUSH Q8H Sodium Chloride 0.9% [Saline Flush] 10 ml FLUSH Q12HR PRN 10/29/20 22:31 Antiembolic Devices [RC] .Routine Antiembolic Devices [RC] 08,20 Communication Order [RC] PER UNIT ROUTINE Communication, Vaccine [RC] PER UNIT ROUTINE Height and Weight [RC] 0600 Intake and Output Strict [RC] 06,18 Oxygen Therapy [RC] 2300 Pulse Oximetry [RC] ASDIRECTED Up With Assistance [RC] ASDIRECTED VTE/DVT Education [RC] PER UNIT ROUTINE Vaccines to be Administered [RC] .PRN Vital Signs [RC] Q4HR OCCULT BLOOD DIAGNOSTIC [OP] Stat Antiembolic Hose [OM.PC] Routine CHF Questionnaire [COMM] Routine DVT/VTE Prophylaxis Reflex [OM.PC] Routine GM Immunization Reflex [OM.PC] Click to Edit 10/29/20 22:35 Dextrose 50% in Water 50 ml IV ASDIRECTED PRN Glucagon,Human Recombinant [GlucaGen] 1 mg IM ASDIRECTED PRN 10/29/20 22:36 Urinary Catheter Assessment [RC] 08,20 10/29/20 22:45 Farmer Catheter Insertion [Insert Urinary Catheter] [OM.PC] Q24H H PYLORI STOOL ANTIGEN [MREF] ONETIME 10/29/20 23:06 Loperamide [Imodium AD] 2 mg PO BEDTIME 10/29/20 23:42 hydrOXYzine pamoate [Vistaril] 25 mg PO Q6H PRN 10/29/20 23:43 LORazepam [Ativan] 1 mg IVPUSH Q4H PRN 10/30/20 00:00 Gabapentin [Neurontin] 600 mg PO 0000,1200 10/30/20 02:08 LACTIC ACID [CHEM] Routine 10/30/20 02:43 Consult to Occupational Therapy [OT Evaluation and Treatment] [CONS] Routine Consult to Physical Therapy [PT Evaluation and Treatment] [CONS] Routine 10/30/20 05:11 EKG Documentation Completion [RC] ASDIRECTED Echo Comp wo Cont [US] Urgent Venous Doppler Lwr Ext Bi [US] Urgent 10/30/20 07:00 Fluticasone Propionate [Flonase] 0 gm NASBOTH DAILY PRN 10/30/20 Breakfast Fluid Restriction [DIET] 10/30/20 08:00 Cyanocobalamin (Vitamin B12) [Vitamin B12] 1,000 mcg PO DAILY Fish Oil/[place]-3 Fatty Acids [Fish Oil] 1 gm PO Q12HR Gabapentin [Neurontin] 600 mg PO 0800,1600,2000 Losartan [Cozaar] 100 mg PO DAILY Magnesium Oxide 400 mg PO BID Metoprolol Tartrate [Lopressor] 50 mg PO Q12HR Multivitamins [Tab-A-Barbie] 1 tab PO DAILY Pantoprazole [ProTONIX IV] 40 mg IVPUSH 0800,2000 Potassium Chloride [Klor-Con M20] 20 meq PO TID Pramipexole [Mirapex] 0.25 mg PO Q12HR Primidone [Mysoline] 50 mg PO Q12HR 10/30/20 08:07 REFLEX LACTIC ACID YES OR NO [CHEM] Routine 10/30/20 11:30 Blood Glucose Check, Bedside [RC] QIDACANDBED Insulin Lispro [HumaLOG] See Protocol SUBCUT QIDACANDBED 10/30/20 20:00 Simvastatin [Zocor] 20 mg PO BEDTIME - Assessment Assessment:: As above - Plan Plan:: As above. Extensive precautions were given to the patient, who is in agreement with the treatment plan. The patient will require about 2-3 days of inpatient/acute care secondary to multiple health problems as above.
[2020-10-30] MEDS ORDERED: Simethicone 80 MG Tab.Chew PO ONE (09:19)
[2020-10-30] MEDS ORDERED: Loperamide 2 MG Tab PO PRN (10:19)
[2020-10-30] MEDS: Lactated Ringers 1,000 ML IV SCH ×2 (11:06→22:15)
[2020-10-30] MEDS: Insulin Lispro 100 Units/ML 3 ML Vial SUBCUT SCH ×3 (11:49→20:42)
[2020-10-30] MEDS: Nystatin Topical Powder 15 GM Bottle TOP SCH ×3 (15:38→20:38)
[2020-10-30] MEDS ORDERED: Simvastatin 20 MG Tab PO SCH (20:00)
[2020-10-30] MEDS ORDERED: Enoxaparin 40 MG/0.4 ML Syringe SUBCUT SCH (20:00)
[2020-10-30] MEDS ORDERED: LORazepam 1 MG Tab PO PRN (21:18)
[2020-10-30] MEDS ORDERED: Metoprolol Tartrate 5 MG/5 ML SDV IVPUSH ONE (22:10)
[2020-10-30] MEDS ORDERED: Magnesium Sulfate/Water 4 GM/100 ML BAG IV ONE (22:15)
[2020-10-30 22:20] VITALS: BP 128/75
--- NOTE | 2020-10-30 22:33 | PCM.DCSUM1 ---
Discharge Summary - Hospital Course HPI Initial Comments: See emergency room note/initial H&P Brief History: See emergency room note/admission H&P Diagnosis: Stroke: No Modified [place] Scale: No Symptoms at All Modified [place] Scale Score: 0 - Discharge Data Discharge Date: 10/30/20 Discharge Disposition: DC/Tfer to Acute Hospital 02 Condition: Serious - Referral to Home Health Primary Care Physician: Chelsy Nunez MD - Discharge Diagnosis/Problem(s) (1) Torsades de pointes SNOMED Code(s): 40213966 ICD Code: I47.2 - VENTRICULAR TACHYCARDIA Status: Acute Priority: High Current Visit: Yes Onset Date: 10/30/20 Problem Details: Beginning at 9:39 PM this evening the patient began having long runs of ventricular tachycardia with a pulse with a torsades type pattern. A total of at least 7 episodes of this rhythm occurred prior to my arrival for patient evaluation with runs running between 6 and 21 beats. Note that these were completely nonsymptomatic in nature with no chest pain or other anginal type symptoms. IV Lopressor 2.5 mg was given IV with repeat dose of IV magnesium 4 g IV started after blood draw this evening. No previous history of significant hypomagnesemia prior to admission with previous IV magnesium sulfate and initiation of oral magnesium oxide earlier today as below. Initial telephone consultation with [facility] in [place] at 11:17 PM and at 11:28 PM with subsequent telephone consultation at 11:[address] Disla, hospitalist, who does accept the patient for direct admission with no other further treatment recommendations given. No recurrence of his ventricular tachycardia after the above therapy as above with IV magnesium sulfate still running. Physical exam and vital signs were stable at time of patient transfer. Ambulance transfer with film spooler accompaniment. Note additional history of moderate alcohol use likely contributing to his hypomagnesemia. No DTs during this hospitalization, however. Patient's has been informed of the above events and patient transfer to [place]. (2) CHF (congestive heart failure) SNOMED Code(s): 72502718 ICD Code: I50.9 - HEART FAILURE, UNSPECIFIED Status: Acute Priority: High Current Visit: Yes Onset Date: ~10/29/20 Problem Details: No chest pain or anginal type symptoms with chest pain protocol not initiated in the emergency room. Initiated standard rule out CA orders on admission, which are negative to this point, including shortly prior to patient transfer as above. Note persistent BNP elevation. Echocardiogram conducted on 10/30 shows progressive cardiomyopathy with ejection fraction of only 40-45% as below. Initiated IV Lasix therapy after admission with IV bolus of lactated Ringer's required in the emergency room secondary to lactic acid elevation as below. Further medication adjustment by accepting providers. Qualifiers: Heart failure type: unspecified Heart failure chronicity: acute on chronic Qualified Code(s): I50.9 - Heart failure, unspecified (3) Ascites SNOMED Code(s): 559993694 ICD Code: R18.8 - OTHER ASCITES Status: Chronic Priority: Medium Current Visit: Yes Problem Details: Incidental findings. Note moderate alcohol use and mildly elevated LFTs with the patient denying alcohol abuse. Further work-up depending on his clinical course. Continue IV Lasix as above. Qualifiers: Ascites type: other type Qualified Code(s): R18.8 - Other ascites (4) D-dimer, elevated SNOMED Code(s): 376870237 ICD Code: R79.89 - OTHER SPECIFIED ABNORMAL FINDINGS OF BLOOD CHEMISTRY Status: Acute Priority: Medium Current Visit: Yes Onset Date: 10/29/20 Problem Details: Suboptimal CTA of the chest, which was negative as below. Venous Doppler studies of the lower extremities bilaterally were also negative on 10/30/2020. Subcu Lovenox at VTE dose initiated on admission with decreased to prophylactic regimen after negative work-up for DVT and PE as above. (5) Diabetes mellitus SNOMED Code(s): 61715575 ICD Code: E11.9 - TYPE 2 DIABETES MELLITUS WITHOUT COMPLICATIONS Status: Chronic Priority: Medium Current Visit: Yes Problem Details: Blood sugars under good control with current Humalog sliding scale. No hypoglycemic symptoms with stat Accu-Chek of 126 immediately on arrival to our emergency room. Glycosylated hemoglobin in the a.m. Initiated sliding scale secondary to Metformin being on hold from his IV contrast in the emergency room with resumption of Metformin versus initiation of possible insulin therapy on 11/01. Glycosylated hemoglobin on 10/30 was excellent at 5.9%, however. Patient has been noncompliant with his home Accu-Cheks with compliance with Accu-Cheks to be encouraged at time of discharge. Qualifiers: Diabetes mellitus type: type 2 Diabetes mellitus correction insulin use: without adjunct faculty for medical terminology use Diabetes mellitus complication status: with kidney complications Diabetes mellitus complication detail: with chronic kidney disease Chronic kidney disease stage: stage 3 (moderate) Chronic kidney disease stage 3 subtype: stage 3a (GFR 45-59) Qualified Code(s): E11.22 - Type 2 diabetes mellitus with diabetic chronic kidney disease; N18.31 - Chronic kidney disease, stage 3a (6) Elevated LFTs SNOMED Code(s): 291720803 ICD Code: R79.89 - OTHER SPECIFIED ABNORMAL FINDINGS OF BLOOD CHEMISTRY Status: Acute Priority: Medium Current Visit: Yes Onset Date: 10/29/20 Problem Details: Somewhat improved since admission. Possible CHF and/or fatty liver component. Note alcohol use as above. Observe for now. (7) Elevated lactic acid level SNOMED Code(s): 4499426 ICD Code: R79.89 - OTHER SPECIFIED ABNORMAL FINDINGS OF BLOOD CHEMISTRY Status: Acute Priority: High Current Visit: Yes Onset Date: 10/29/20 Problem Details: No clinical evidence of sepsis with no leukocytosis, fever, etc. Patient bolused with 1 L of LR IV with continuation of IV fluids at 100 cc/h with caution secondary to CHF. Initiated sepsis protocol on admission, including repeat lactic acid level in 4 hours. Slowly decreasing lactic acid level with IV hydration as above. Lactic acid level was planned to be repeated in the a.m. on 10/31. No indication of sepsis. Mild microscopic hematuria likely secondary to Farmer catheter placement with urine for culture and sensitivity still pending. No evidence of pneumonia by chest x-ray on admission with no indication for IV antibiotic therapy at this time. (8) Hyperuricemia SNOMED Code(s): 79153809 ICD Code: E79.0 - HYPERURICEMIA W/O SIGNS OF INFLAM ARTHRIT AND TOPHACEOUS DIS Status: Acute Priority: Medium Current Visit: Yes Onset Date: 10/29/20 Problem Details: Newly diagnosed. Observe closely secondary to IV diuresis. (9) Hypoalbuminemia SNOMED Code(s): 438849719 ICD Code: E88.09 - OTH DISORDERS OF PLASMA-PROTEIN METABOLISM, NEC Status: Acute Priority: Medium Current Visit: Yes Onset Date: 10/29/20 Problem Details: Observe for now. (10) Hypocalcemia SNOMED Code(s): 0949499 ICD Code: E83.51 - HYPOCALCEMIA Status: Chronic Priority: Medium Current Visit: Yes Problem Details: Observe for now. Chronic problem. Observe closely by accepting providers. (11) Hypomagnesemia SNOMED Code(s): 757197533 ICD Code: E83.42 - HYPOMAGNESEMIA Status: Acute Priority: Medium Current Visit: Yes Onset Date: 10/29/20 Problem Details: Newly diagnosed. Magnesium sulfate 4 g IV initiated shortly after admission with initiation of oral magnesium oxide therapy on 10/30 a.m. Note additional IV magnesium infusion shortly prior to patient's transfer as above. Continue to observe closely by accepting providers. (12) Macrocytic anemia SNOMED Code(s): 23137769 ICD Code: D53.9 - NUTRITIONAL ANEMIA, UNSPECIFIED Status: Acute Priority: Medium Current Visit: Yes Onset Date: 10/29/20 Problem Details: Anemia work-up had been scheduled for the morning of 10/31 however patient transfer prior to these last been conducted. Consider work-up by accepting providers. (13) Dyslipidemia SNOMED Code(s): 422993345 ICD Code: E78.5 - HYPERLIPIDEMIA, UNSPECIFIED Status: Chronic Priority: Medium Current Visit: Yes Problem Details: Lipid panel on 10/30/2020 showed significant dyslipidemia with HDL of only 21 and persistent hypertriglyceridemia. Note LFTs elevation as above. Consider medical therapy depending on his clinical course. Significant obesity with patient placed on a low calorie ADA, heart healthy, diverticulosis diet. (14) Peptic reflux disease SNOMED Code(s): 100717514 ICD Code: K21.9 - GASTRO-ESOPHAGEAL REFLUX DISEASE WITHOUT ESOPHAGITIS Status: Chronic Priority: Medium Current Visit: Yes Problem Details: IV Pepcid and IV Protonix given in the emergency room. Somewhat symptomatic in the emergency room with no evidence of acute GI bleed. High-dose IV Protonix continued after admission. Note the patient did need additional simethicone as above. (15) Polypharmacy SNOMED Code(s): 097429276 ICD Code: Z79.899 - OTHER INSURANCE BROKER (CURRENT) DRUG THERAPY Status: Chronic Priority: High Current Visit: Yes Problem Details: Significant polypharmacy including chronic narcotic use. Recommend referral to pain clinic with possibility of consultation with our [facility] provider after discharge and/or during possible swing bed care. (16) Mixed anxiety depressive disorder SNOMED Code(s): 692416723 ICD Code: F41.8 - OTHER SPECIFIED ANXIETY DISORDERS Status: Chronic Priority: Medium Current Visit: Yes Problem Details: Moderately poor control based on today's exam. (17) Osteoarthritis SNOMED Code(s): 032186346 ICD Code: M19.90 - UNSPECIFIED OSTEOARTHRITIS, UNSPECIFIED SITE Status: Acute Current Visit: Yes Problem Details: Note polypharmacy and chronic narcotic use as above. PT and OT have been ordered secondary to significant generalized weakness and history of recurrent falls. Patient does wish to go home however he is likely a candidate for either swing bed care and/or short- term care home placement. Consider transfer to [facility] swing bed care unit since a pain clinic provider is available in that area. Qualifiers: Osteoarthritis location: multiple joints Osteoarthritis type: primary Qualified Code(s): M89.49 - Other hypertrophic osteoarthropathy, multiple sites (18) Tinea SNOMED Code(s): 60407670 ICD Code: B35.9 - DERMATOPHYTOSIS, UNSPECIFIED Status: Acute Priority: Medium Current Visit: Yes Onset Date: ~10/30/20 Problem Details: Tinea cruris with initiation of nystatin powder today. - Patient Summary/Data Operative Procedure(s) Performed: None Complications: Ventricular tachycardia/torsades as above Consults: Consultations 10/30/20 10:16 PT Evaluation and Treatment [CONS] Routine 10/30/20 10:17 OT Evaluation and Treatment [CONS] Routine 10/30/20 10:18 Consult to Case Management/Electrodynamicist [CONS] Routine Labs Pending at D/C: Urine culture and sensitivity results Recommended Follow-up Testing/Procedures: Per accepting providers Planned Operative Procedure(s) after DC: Per accepting providers Hospital Course: The patient was admitted to inpatient/acute care on telemetry with negative preliminary work-up for acute CA as above. Note multiple medication changes as above secondary to multiple health care issues including CHF, hypomagnesemia, D- dimer elevation, and severe weakness at home, which does affect his ADLs. Secondary to recurrent ventricular tachycardia with pulse/torsades patient was transferred to [facility] in [place] via ambulance with film spooler accompaniment as above. - Patient Instructions Diet: NPO Activity: Bedrest Driving: Do Not Drive Showering/Bathing: No Showering Notify Provider of: Increased Pain, Nausea and/or Vomiting Other/Special Instructions: Ambulance transfer with film spooler accompaniment to [facility] in [place] as above. - Discharge Plan *PRESCRIPTION DRUG MONITORING PROGRAM REVIEWED*: Not Applicable *COPY OF PRESCRIPTION DRUG MONITORING REPORT IN PATIENT MARIO: Not Applicable Home Medications: Home Meds Multivitamin [Daily Multiple Vitamin] 1 tab PO DAILY 08/06/16 [History] Simvastatin [Zocor] 20 mg PO BEDTIME 08/06/16 [History] oxyCODONE HCl [Oxycodone HCl] 5 mg PO Q6HR PRN 08/06/16 [History] Nitroglycerin [IJP: Nitroglycerin] 0.4 mg SL ASDIRECTED PRN #30 tablet, sublingual 08/09/16 [Rx] Losartan Potassium 100 mg PO DAILY 01/10/20 [History] Mecobalamin [B12 Active] 1,000 mcg PO DAILY 01/10/20 [History] Metoprolol Tartrate [Lopressor] 50 mg PO Q12HR 01/10/20 [History] Show Low-3S/DHA/Epa/Fish Oil [Show Low-3 Fish Oil 1,000 mg Sfgl] 1 each PO Q12HR 01/10/20 [History] Omeprazole 20 mg PO Q12HR 01/10/20 [History] Pramipexole [Mirapex] 0.25 mg PO Q12HR 01/10/20 [History] Primidone 50 mg PO Q12HR 01/10/20 [History] hydrOXYzine HCL [Hydroxyzine HCl] 25 mg PO Q6HR PRN 01/10/20 [History] Gabapentin [Neurontin] 600 mg PO 5XDAY@00,08,12,16,20 10/29/20 [History] Loperamide HCl [Imodium A-D] 2 mg PO BEDTIME 10/29/20 [History] metFORMIN [Glucophage] 3 tab PO DAILY 10/29/20 [History] Fluticasone Propionate [Flonase] 1 spray NASBOTH DAILY PRN 10/30/20 [History] Oxymetazoline HCl [Afrin] 1 spray NS QID PRN 10/30/20 [History] Oxygen Therapy Mode: Nasal Cannula Oxygen Flow Rate (L/min): 1 Maintain SpO2% greater than: 92 Patient Handouts: Heart Failure, Diagnosis, [id number] Forms: ED Department Discharge, Interfacility Transfer EMTALA Referrals: Chelsy Nunez MD [Primary Care Provider] - - Discharge Summary/Plan Comment DC Time >30 min.: Yes (Coordination of care ) Discharge Summary/Plan Comment: As above. Extensive precautions were given to the patient and his , who are in agreement with the treatment plan. - General Info Date of Service: 10/30/20 Admission Dx/Problem (Free Text: 1. CHF 2. D-dimer elevation Functional Status: Reports: Pain Controlled, Tolerating Diet, Urinating (Farmer catheter), New Symptoms (Ventricular tachycardia as above), Incentive Spirometry. Denies: Ambulating (With extreme difficulty secondary to weakness and requires assist x23) Numeric/FACES Score: 2 (Stable chronic neck, back, and arthritic pain.) - Review of Systems General: Reports: Weakness (Severe generalized). Denies: Fever, Fatigue, Malaise, Night Sweats, Appetite (Good) HEENT: Reports: No Symptoms. Denies: Eye Pain, Headaches, Post Nasal Drip, Sinus Congestion, Sore Throat, Rhinitis, Visual Changes Pulmonary: Reports: Shortness of Breath, Cough (Stable chronic). Denies: Pleuritic Chest Pain, Sputum, Hemoptysis, Wheezing Cardiovascular: Reports: Palpitations, Dyspnea on Exertion, Edema (Improved since this morning). Denies: Chest Pain, Orthopnea, Lightheadedness Gastrointestinal: Reports: Other (Normal bowel movement earlier today with negative Hemoccult). Denies: Abdominal Pain, Constipation, Decreased Appetite, Diarrhea, Difficulty Swallowing, Flatus, Hematochezia, Melena, Nausea, Vomiting Genitourinary: Reports: Incontinence, Other (Farmer catheter). Denies: Dysuria, Frequency, Burning, Pain, Urgency, Hematuria, Retention, Flank Pain Musculoskeletal: Reports: Neck Pain (Chronic), Back Pain (Chronic), Joint Pain (Chronic). Denies: Joint Swelling Skin: Reports: Bruising (Mild at Lovenox sites). Denies: Diaphoresis, Pruritis, Rash Neurological: Reports: Numbness (Stable by history), Paresthesia (As above), Tingling (As above), Difficulty Walking (Secondary to weakness), Weakness (Severe as above) Psychiatric: Reports: Depression (Mild), Anxiety (Moderate). Denies: Agitation, Cravings, Hallucinations, Homicidal Ideation - Patient Data Vitals - Most Recent: Last Vital Signs Temp 36.7 C 10/30/20 20:00 Pulse 78 10/30/20 22:16 Resp 20 10/30/20 20:00 BP 128/75 10/30/20 22:16 Pulse Ox 83 L 10/30/20 20:00 Vital Signs - 24 hr 10/30/20 10/30/20 10/30/20 00:00 02:10 04:00 Temperature [ 36.6 C 36.6 C 36.3 C Oral] Pulse, Peripheral Pulse, 80 72 86 Peripheral [ Pulse Oximetry] Respiratory 18 18 20 Rate Blood Pressure Blood Pressure 129/77 107/60 113/64 [Left Upper Arm ] O2 Sat by Pulse 100 100 98 Oximetry O2 Sat by Pulse Oximetry [ Nasal Cannula] 10/30/20 10/30/20 10/30/20 07:28 07:29 07:43 Temperature [ 36.4 C Oral] Pulse, 78 Peripheral Pulse, 78 Peripheral [ Pulse Oximetry] Respiratory 22 H Rate Blood Pressure 117/85 117/85 Blood Pressure 117/85 [Left Upper Arm ] O2 Sat by Pulse 98 Oximetry O2 Sat by Pulse Oximetry [ Nasal Cannula] 10/30/20 10/30/20 10/30/20 12:00 16:00 20:00 Temperature [ 36.1 C 36.7 C Oral] Pulse, Peripheral Pulse, 83 80 83 Peripheral [ Pulse Oximetry] Respiratory 20 18 20 Rate Blood Pressure Blood Pressure 104/71 107/68 128/60 [Left Upper Arm ] O2 Sat by Pulse 97 97 98 Oximetry O2 Sat by Pulse Oximetry [ Nasal Cannula] 10/30/20 10/30/20 10/30/20 20:41 22:16 22:55 Temperature [ Oral] Pulse, 78 78 Peripheral Pulse, Peripheral [ Pulse Oximetry] Respiratory Rate Blood Pressure 117/85 128/75 Blood Pressure [Left Upper Arm ] O2 Sat by Pulse Oximetry O2 Sat by Pulse 98 Oximetry [ Nasal Cannula] Weight - Most Recent: 130.362 kg I&O - Last 24 hours: Intake & Output 10/30/20 10/30/20 10/30/20 06:59 14:59 22:59 Intake Total 046 202 3914 Output Total 1400 1600 600 Balance -579 -4898 884 Imaging Impressions - Last 24 hrs: Chest x-ray, portable, on 10/29/2020 shows extremely poor inspiratory film with severe cardiomegaly with mild CHF. Moderate COPD changes with no pneumothorax, pulmonary infiltrates, etc. radiation monitor shows recurrent ventricular tachycardia with torsades pattern recurrent in nature as above with previous normal sinus rhythm with average heart rate in the 70s to 80s with no significant previous PVCs prior to the above episodes. CTA of the chest on 10/29/2010 was negative for PE, although suboptimal quality secondary to patient habitus, including after decreasing the size of the slices with initial evaluation. Preliminary verbal report of venous Doppler studies of the lower extremities on 10/30/2020 was negative for DVT. Preliminary verbal report of echocardiogram conducted on 10/30/2020 shows evidence of progressive decreased cardiac function including ejection fraction of 40-45% with otherwise mild diffuse valvular disease. Lab Results - Last 24 hrs: Laboratory Results - last 24 hr 10/29/20 10/29/20 10/29/20 Range/Units 03:55 22:45 22:45 WBC (4.0-10.2) K/uL RBC (4.33-5.41) M/uL Hgb (13.1-16.8) g/dL Hct (39.0-49.0) % MCV (84.0-98.0) fL MCH (28.2-33.3) pg MCHC (31.7-36.0) g/dL RDW (11.2-14.1) % Plt Count (150-350) K/uL Neut % (Auto) (45.0-80.0) % Lymph % (Auto) (10.0-50.0) % [place] % (Auto) (2.0-14.0) % Eos % (Auto) (0.0-5.0) % Baso % (Auto) (0.0-2.0) % Neut # (Auto) (1.40-7.00) K/uL Lymph # (Auto) (0.50-3.50) K/uL [place] # (Auto) (0.00-1.00) K/uL Eos # (Auto) (0.00-0.50) K/uL Baso # (Auto) (0.00-0.20) K/uL D-Dimer, Quantitative (0-400) ng/mL Sodium (136-145) mmol/L Potassium (3.5-5.1) mmol/L Chloride (98-107) mmol/L Carbon Dioxide (21.0-32.0) mmol/L BUN (7-18) mg/dL Creatinine (0.51-1.17) mg/dL Est Cr Clr Drug Dosing mL/min Estimated GFR (MDRD) mL/min Glucose (70-99) mg/dL POC Glucose (65-110) mg/dl Hemoglobin A1c (4.3-5.7) % Lactic Acid 4.1 H (0.4-2.0) mmol/L Calcium (8.5-10.1) mg/dL Total Bilirubin (0.2-1.0) mg/dL AST (15-37) U/L ALT (12-78) U/L Alkaline Phosphatase (46-116) IU/L Creatine Kinase 33 (26-308) U/L Creatine Kinase Index 1.2 (0.0-2.5) % CK-MB (CK-2) 0.40 (0.00-3.60) ng/mL Troponin I 0.009 (0.000-0.056) ng/mL NT-Pro-B Natriuret Pep (0-125) pg/mL Total Protein (6.4-8.2) g/dL Albumin (3.4-5.0) g/dL Triglycerides (30-150) mg/dL Cholesterol (100-200) mg/dL LDL Cholesterol, Calc (0-100) mg/dL HDL Cholesterol (40-60) mg/dL Specimen Type [place] Urine Color Yellow Urine Appearance Clear Urine pH 6.0 (5.0-9.0) Ur Specific [place] 1.015 (1.005-1.030) Urine Protein Negative (NEGATIVE) mg/dL Urine Glucose (UA) Negative (NEGATIVE) mg/dL Urine Ketones Negative (NEGATIVE) mg/dL Urine Occult Blood Moderate H (NEGATIVE) Urine Nitrite Negative (NEGATIVE) Urine Bilirubin Negative (NEGATIVE) Urine Urobilinogen 0.2 (0.2-1.0) E.U./dL Ur Leukocyte Esterase Negative (NEGATIVE) Urine RBC 30-40 H /HPF Urine WBC 0-5 /HPF Ur Epithelial Cells Few /LPF Urine Bacteria Rare (NONE TO FEW) /HPF 10/30/20 10/30/20 10/30/20 Range/Units 07:30 07:30 07:30 WBC 7.0 (4.0-10.2) K/uL RBC 3.43 L (4.33-5.41) M/uL Hgb 11.3 L (13.1-16.8) g/dL Hct 35.1 L (39.0-49.0) % MCV 102.3 H (84.0-98.0) fL MCH 32.9 (28.2-33.3) pg MCHC 32.2 (31.7-36.0) g/dL RDW 14.9 H (11.2-14.1) % Plt Count 266 D (150-350) K/uL Neut % (Auto) 59.0 (45.0-80.0) % Lymph % (Auto) 27.9 (10.0-50.0) % [place] % (Auto) 10.4 (2.0-14.0) % Eos % (Auto) 2.1 (0.0-5.0) % Baso % (Auto) 0.6 (0.0-2.0) % Neut # (Auto) 4.12 (1.40-7.00) K/uL Lymph # (Auto) 1.95 (0.50-3.50) K/uL [place] # (Auto) 0.73 (0.00-1.00) K/uL Eos # (Auto) 0.15 (0.00-0.50) K/uL Baso # (Auto) 0.04 (0.00-0.20) K/uL D-Dimer, Quantitative 1250 H (0-400) ng/mL Sodium 139 (136-145) mmol/L Potassium 4.3 (3.5-5.1) mmol/L Chloride 102 (98-107) mmol/L Carbon Dioxide 29.9 (21.0-32.0) mmol/L BUN 11 (7-18) mg/dL Creatinine 1.11 (0.51-1.17) mg/dL Est Cr Clr Drug Dosing 72.82 mL/min Estimated GFR (MDRD) > 60 mL/min Glucose 107 H (70-99) mg/dL POC Glucose (65-110) mg/dl Hemoglobin A1c (4.3-5.7) % Lactic Acid (0.4-2.0) mmol/L Calcium 7.8 L (8.5-10.1) mg/dL Total Bilirubin 0.7 (0.2-1.0) mg/dL AST 65 H (15-37) U/L ALT 28 (12-78) U/L Alkaline Phosphatase 237 H (46-116) IU/L Creatine Kinase 40 (26-308) U/L Creatine Kinase Index 0.8 (0.0-2.5) % CK-MB (CK-2) 0.30 (0.00-3.60) ng/mL Troponin I 0.016 (0.000-0.056) ng/mL NT-Pro-B Natriuret Pep 579 H (0-125) pg/mL Total Protein 5.9 L (6.4-8.2) g/dL Albumin 1.9 L (3.4-5.0) g/dL Triglycerides 199 H (30-150) mg/dL Cholesterol 90 L (100-200) mg/dL LDL Cholesterol, Calc 29 (0-100) mg/dL HDL Cholesterol 21 L (40-60) mg/dL Specimen Type Urine Color Urine Appearance Urine pH (5.0-9.0) Ur Specific [place] (1.005-1.030) Urine Protein (NEGATIVE) mg/dL Urine Glucose (UA) (NEGATIVE) mg/dL Urine Ketones (NEGATIVE) mg/dL Urine Occult Blood (NEGATIVE) Urine Nitrite (NEGATIVE) Urine Bilirubin (NEGATIVE) Urine Urobilinogen (0.2-1.0) E.U./dL Ur Leukocyte Esterase (NEGATIVE) Urine RBC /HPF Urine WBC /HPF Ur Epithelial Cells /LPF Urine Bacteria (NONE TO FEW) /HPF 10/30/20 10/30/20 10/30/20 Range/Units 07:30 07:30 11:37 WBC (4.0-10.2) K/uL RBC (4.33-5.41) M/uL Hgb (13.1-16.8) g/dL Hct (39.0-49.0) % MCV (84.0-98.0) fL MCH (28.2-33.3) pg MCHC (31.7-36.0) g/dL RDW (11.2-14.1) % Plt Count (150-350) K/uL Neut % (Auto) (45.0-80.0) % Lymph % (Auto) (10.0-50.0) % [place] % (Auto) (2.0-14.0) % Eos % (Auto) (0.0-5.0) % Baso % (Auto) (0.0-2.0) % Neut # (Auto) (1.40-7.00) K/uL Lymph # (Auto) (0.50-3.50) K/uL [place] # (Auto) (0.00-1.00) K/uL Eos # (Auto) (0.00-0.50) K/uL Baso # (Auto) (0.00-0.20) K/uL D-Dimer, Quantitative (0-400) ng/mL Sodium (136-145) mmol/L Potassium (3.5-5.1) mmol/L Chloride (98-107) mmol/L Carbon Dioxide (21.0-32.0) mmol/L BUN (7-18) mg/dL Creatinine (0.51-1.17) mg/dL Est Cr Clr Drug Dosing mL/min Estimated GFR (MDRD) mL/min Glucose (70-99) mg/dL POC Glucose 134 H (65-110) mg/dl Hemoglobin A1c 5.9 H (4.3-5.7) % Lactic Acid 3.3 H (0.4-2.0) mmol/L Calcium (8.5-10.1) mg/dL Total Bilirubin (0.2-1.0) mg/dL AST (15-37) U/L ALT (12-78) U/L Alkaline Phosphatase (46-116) IU/L Creatine Kinase (26-308) U/L Creatine Kinase Index (0.0-2.5) % CK-MB (CK-2) (0.00-3.60) ng/mL Troponin I (0.000-0.056) ng/mL NT-Pro-B Natriuret Pep (0-125) pg/mL Total Protein (6.4-8.2) g/dL Albumin (3.4-5.0) g/dL Triglycerides (30-150) mg/dL Cholesterol (100-200) mg/dL LDL Cholesterol, Calc (0-100) mg/dL HDL Cholesterol (40-60) mg/dL Specimen Type Urine Color Urine Appearance Urine pH (5.0-9.0) Ur Specific [place] (1.005-1.030) Urine Protein (NEGATIVE) mg/dL Urine Glucose (UA) (NEGATIVE) mg/dL Urine Ketones (NEGATIVE) mg/dL Urine Occult Blood (NEGATIVE) Urine Nitrite (NEGATIVE) Urine Bilirubin (NEGATIVE) Urine Urobilinogen (0.2-1.0) E.U./dL Ur Leukocyte Esterase (NEGATIVE) Urine RBC /HPF Urine WBC /HPF Ur Epithelial Cells /LPF Urine Bacteria (NONE TO FEW) /HPF 10/30/20 10/30/20 Range/Units 16:46 20:40 WBC (4.0-10.2) K/uL RBC (4.33-5.41) M/uL Hgb (13.1-16.8) g/dL Hct (39.0-49.0) % MCV (84.0-98.0) fL MCH (28.2-33.3) pg MCHC (31.7-36.0) g/dL RDW (11.2-14.1) % Plt Count (150-350) K/uL Neut % (Auto) (45.0-80.0) % Lymph % (Auto) (10.0-50.0) % [place] % (Auto) (2.0-14.0) % Eos % (Auto) (0.0-5.0) % Baso % (Auto) (0.0-2.0) % Neut # (Auto) (1.40-7.00) K/uL Lymph # (Auto) (0.50-3.50) K/uL [place] # (Auto) (0.00-1.00) K/uL Eos # (Auto) (0.00-0.50) K/uL Baso # (Auto) (0.00-0.20) K/uL D-Dimer, Quantitative (0-400) ng/mL Sodium (136-145) mmol/L Potassium (3.5-5.1) mmol/L Chloride (98-107) mmol/L Carbon Dioxide (21.0-32.0) mmol/L BUN (7-18) mg/dL Creatinine (0.51-1.17) mg/dL Est Cr Clr Drug Dosing mL/min Estimated GFR (MDRD) mL/min Glucose (70-99) mg/dL POC Glucose 158 H 158 H (65-110) mg/dl Hemoglobin A1c (4.3-5.7) % Lactic Acid (0.4-2.0) mmol/L Calcium (8.5-10.1) mg/dL Total Bilirubin (0.2-1.0) mg/dL AST (15-37) U/L ALT (12-78) U/L Alkaline Phosphatase (46-116) IU/L Creatine Kinase (26-308) U/L Creatine Kinase Index (0.0-2.5) % CK-MB (CK-2) (0.00-3.60) ng/mL Troponin I (0.000-0.056) ng/mL NT-Pro-B Natriuret Pep (0-125) pg/mL Total Protein (6.4-8.2) g/dL Albumin (3.4-5.0) g/dL Triglycerides (30-150) mg/dL Cholesterol (100-200) mg/dL LDL Cholesterol, Calc (0-100) mg/dL HDL Cholesterol (40-60) mg/dL Specimen Type Urine Color Urine Appearance Urine pH (5.0-9.0) Ur Specific [place] (1.005-1.030) Urine Protein (NEGATIVE) mg/dL Urine Glucose (UA) (NEGATIVE) mg/dL Urine Ketones (NEGATIVE) mg/dL Urine Occult Blood (NEGATIVE) Urine Nitrite (NEGATIVE) Urine Bilirubin (NEGATIVE) Urine Urobilinogen (0.2-1.0) E.U./dL Ur Leukocyte Esterase (NEGATIVE) Urine RBC /HPF Urine WBC /HPF Ur Epithelial Cells /LPF Urine Bacteria (NONE TO FEW) /HPF Laboratory Tests 10/29/20 10/29/20 10/29/20 Range/Units 03:55 18:41 18:48 WBC 9.3 (4.0-10.2) K/uL RBC 3.53 L (4.33-5.41) M/uL Hgb 11.7 L (13.1-16.8) g/dL Hct 35.7 L (39.0-49.0) % MCV 101.1 H D (84.0-98.0) fL MCH 33.1 (28.2-33.3) pg MCHC 32.8 (31.7-36.0) g/dL RDW 14.4 H (11.2-14.1) % Plt Count 351 H D (150-350) K/uL Neut % (Auto) 71.8 (45.0-80.0) % Lymph % (Auto) 18.3 (10.0-50.0) % [place] % (Auto) 8.4 (2.0-14.0) % Eos % (Auto) 1.2 (0.0-5.0) % Baso % (Auto) 0.3 (0.0-2.0) % Neut # (Auto) 6.69 (1.40-7.00) K/uL Lymph # (Auto) 1.70 (0.50-3.50) K/uL [place] # (Auto) 0.78 (0.00-1.00) K/uL Eos # (Auto) 0.11 (0.00-0.50) K/uL Baso # (Auto) 0.03 (0.00-0.20) K/uL PT (9.5-12.0) SEC INR APTT (24.5-32.8) SEC D-Dimer, Quantitative (0-400) ng/mL Sodium (136-145) mmol/L Potassium (3.5-5.1) mmol/L Chloride (98-107) mmol/L Carbon Dioxide (21.0-32.0) mmol/L BUN (7-18) mg/dL Creatinine (0.51-1.17) mg/dL Est Cr Clr Drug Dosing Estimated GFR (MDRD) mL/min Glucose (70-99) mg/dL POC Glucose 126 H (65-110) mg/dl Hemoglobin A1c (4.3-5.7) % Lactic Acid (0.4-2.0) mmol/L Uric Acid (2.6-7.2) mg/dL Calcium (8.5-10.1) mg/dL Magnesium (1.8-2.4) mg/dL Total Bilirubin (0.2-1.0) mg/dL AST (15-37) U/L ALT (12-78) U/L Alkaline Phosphatase (46-116) IU/L Creatine Kinase (26-308) U/L Creatine Kinase Index (0.0-2.5) % CK-MB (CK-2) (0.00-3.60) ng/mL Troponin I (0.000-0.056) ng/mL NT-Pro-B Natriuret Pep (0-125) pg/mL Total Protein (6.4-8.2) g/dL Albumin (3.4-5.0) g/dL Triglycerides (30-150) mg/dL Cholesterol (100-200) mg/dL LDL Cholesterol, Calc (0-100) mg/dL HDL Cholesterol (40-60) mg/dL TSH, Ultra Sensitive (0.358-3.740) mIU/mL Specimen Type [place] Urine Color Yellow Urine Appearance Clear Urine pH 6.0 (5.0-9.0) Ur Specific [place] 1.015 (1.005-1.030) Urine Protein Negative (NEGATIVE) mg/dL Urine Glucose (UA) Negative (NEGATIVE) mg/dL Urine Ketones Negative (NEGATIVE) mg/dL Urine Occult Blood Moderate H (NEGATIVE) Urine Nitrite Negative (NEGATIVE) Urine Bilirubin Negative (NEGATIVE) Urine Urobilinogen 0.2 (0.2-1.0) E.U./dL Ur Leukocyte Esterase Negative (NEGATIVE) Urine RBC 30-40 H /HPF Urine WBC 0-5 /HPF Ur Epithelial Cells Few /LPF Urine Bacteria Rare (NONE TO FEW) /HPF SARS-CoV-2 Ag (Rapid) (NEGATIVE) 10/29/20 10/29/20 10/29/20 Range/Units 18:48 18:48 18:48 WBC (4.0-10.2) K/uL RBC (4.33-5.41) M/uL Hgb (13.1-16.8) g/dL Hct (39.0-49.0) % MCV (84.0-98.0) fL MCH (28.2-33.3) pg MCHC (31.7-36.0) g/dL RDW (11.2-14.1) % Plt Count (150-350) K/uL Neut % (Auto) (45.0-80.0) % Lymph % (Auto) (10.0-50.0) % [place] % (Auto) (2.0-14.0) % Eos % (Auto) (0.0-5.0) % Baso % (Auto) (0.0-2.0) % Neut # (Auto) (1.40-7.00) K/uL Lymph # (Auto) (0.50-3.50) K/uL [place] # (Auto) (0.00-1.00) K/uL Eos # (Auto) (0.00-0.50) K/uL Baso # (Auto) (0.00-0.20) K/uL PT 11.3 (9.5-12.0) SEC INR 1.1 APTT 25.9 (24.5-32.8) SEC D-Dimer, Quantitative 1690 H (0-400) ng/mL Sodium 137 (136-145) mmol/L Potassium 4.9 (3.5-5.1) mmol/L Chloride 102 (98-107) mmol/L Carbon Dioxide 25.6 (21.0-32.0) mmol/L BUN 11 (7-18) mg/dL Creatinine 1.15 (0.51-1.17) mg/dL Est Cr Clr Drug Dosing TNP Estimated GFR (MDRD) > 60 mL/min Glucose 135 H (70-99) mg/dL POC Glucose (65-110) mg/dl Hemoglobin A1c (4.3-5.7) % Lactic Acid (0.4-2.0) mmol/L Uric Acid 7.6 H (2.6-7.2) mg/dL Calcium 7.7 L (8.5-10.1) mg/dL Magnesium 1.1 L (1.8-2.4) mg/dL Total Bilirubin 0.4 (0.2-1.0) mg/dL AST 83 H (15-37) U/L ALT 33 (12-78) U/L Alkaline Phosphatase 245 H (46-116) IU/L Creatine Kinase 41 (26-308) U/L Creatine Kinase Index 1.0 (0.0-2.5) % CK-MB (CK-2) 0.40 (0.00-3.60) ng/mL Troponin I 0.012 (0.000-0.056) ng/mL NT-Pro-B Natriuret Pep 500 H (0-125) pg/mL Total Protein 6.1 L (6.4-8.2) g/dL Albumin 2.0 L (3.4-5.0) g/dL Triglycerides (30-150) mg/dL Cholesterol (100-200) mg/dL LDL Cholesterol, Calc (0-100) mg/dL HDL Cholesterol (40-60) mg/dL TSH, Ultra Sensitive 3.045 (0.358-3.740) mIU/mL Specimen Type Urine Color Urine Appearance Urine pH (5.0-9.0) Ur Specific [place] (1.005-1.030) Urine Protein (NEGATIVE) mg/dL Urine Glucose (UA) (NEGATIVE) mg/dL Urine Ketones (NEGATIVE) mg/dL Urine Occult Blood (NEGATIVE) Urine Nitrite (NEGATIVE) Urine Bilirubin (NEGATIVE) Urine Urobilinogen (0.2-1.0) E.U./dL Ur Leukocyte Esterase (NEGATIVE) Urine RBC /HPF Urine WBC /HPF Ur Epithelial Cells /LPF Urine Bacteria (NONE TO FEW) /HPF SARS-CoV-2 Ag (Rapid) (NEGATIVE) 10/29/20 10/29/20 10/29/20 Range/Units 18:48 22:45 22:45 WBC (4.0-10.2) K/uL RBC (4.33-5.41) M/uL Hgb (13.1-16.8) g/dL Hct (39.0-49.0) % MCV (84.0-98.0) fL MCH (28.2-33.3) pg MCHC (31.7-36.0) g/dL RDW (11.2-14.1) % Plt Count (150-350) K/uL Neut % (Auto) (45.0-80.0) % Lymph % (Auto) (10.0-50.0) % [place] % (Auto) (2.0-14.0) % Eos % (Auto) (0.0-5.0) % Baso % (Auto) (0.0-2.0) % Neut # (Auto) (1.40-7.00) K/uL Lymph # (Auto) (0.50-3.50) K/uL [place] # (Auto) (0.00-1.00) K/uL Eos # (Auto) (0.00-0.50) K/uL Baso # (Auto) (0.00-0.20) K/uL PT (9.5-12.0) SEC INR APTT (24.5-32.8) SEC D-Dimer, Quantitative (0-400) ng/mL Sodium (136-145) mmol/L Potassium (3.5-5.1) mmol/L Chloride (98-107) mmol/L Carbon Dioxide (21.0-32.0) mmol/L BUN (7-18) mg/dL Creatinine (0.51-1.17) mg/dL Est Cr Clr Drug Dosing Estimated GFR (MDRD) mL/min Glucose (70-99) mg/dL POC Glucose (65-110) mg/dl Hemoglobin A1c (4.3-5.7) % Lactic Acid 4.4 H 4.1 H (0.4-2.0) mmol/L Uric Acid (2.6-7.2) mg/dL Calcium (8.5-10.1) mg/dL Magnesium (1.8-2.4) mg/dL Total Bilirubin (0.2-1.0) mg/dL AST (15-37) U/L ALT (12-78) U/L Alkaline Phosphatase (46-116) IU/L Creatine Kinase 33 (26-308) U/L Creatine Kinase Index 1.2 (0.0-2.5) % CK-MB (CK-2) 0.40 (0.00-3.60) ng/mL Troponin I 0.009 (0.000-0.056) ng/mL NT-Pro-B Natriuret Pep (0-125) pg/mL Total Protein (6.4-8.2) g/dL Albumin (3.4-5.0) g/dL Triglycerides (30-150) mg/dL Cholesterol (100-200) mg/dL LDL Cholesterol, Calc (0-100) mg/dL HDL Cholesterol (40-60) mg/dL TSH, Ultra Sensitive (0.358-3.740) mIU/mL Specimen Type Urine Color Urine Appearance Urine pH (5.0-9.0) Ur Specific [place] (1.005-1.030) Urine Protein (NEGATIVE) mg/dL Urine Glucose (UA) (NEGATIVE) mg/dL Urine Ketones (NEGATIVE) mg/dL Urine Occult Blood (NEGATIVE) Urine Nitrite (NEGATIVE) Urine Bilirubin (NEGATIVE) Urine Urobilinogen (0.2-1.0) E.U./dL Ur Leukocyte Esterase (NEGATIVE) Urine RBC /HPF Urine WBC /HPF Ur Epithelial Cells /LPF Urine Bacteria (NONE TO FEW) /HPF SARS-CoV-2 Ag (Rapid) (NEGATIVE) 10/30/20 10/30/20 10/30/20 Range/Units 07:30 07:30 07:30 WBC 7.0 (4.0-10.2) K/uL RBC 3.43 L (4.33-5.41) M/uL Hgb 11.3 L (13.1-16.8) g/dL Hct 35.1 L (39.0-49.0) % MCV 102.3 H (84.0-98.0) fL MCH 32.9 (28.2-33.3) pg MCHC 32.2 (31.7-36.0) g/dL RDW 14.9 H (11.2-14.1) % Plt Count 266 D (150-350) K/uL Neut % (Auto) 59.0 (45.0-80.0) % Lymph % (Auto) 27.9 (10.0-50.0) % [place] % (Auto) 10.4 (2.0-14.0) % Eos % (Auto) 2.1 (0.0-5.0) % Baso % (Auto) 0.6 (0.0-2.0) % Neut # (Auto) 4.12 (1.40-7.00) K/uL Lymph # (Auto) 1.95 (0.50-3.50) K/uL [place] # (Auto) 0.73 (0.00-1.00) K/uL Eos # (Auto) 0.15 (0.00-0.50) K/uL Baso # (Auto) 0.04 (0.00-0.20) K/uL PT (9.5-12.0) SEC INR APTT (24.5-32.8) SEC D-Dimer, Quantitative 1250 H (0-400) ng/mL Sodium 139 (136-145) mmol/L Potassium 4.3 (3.5-5.1) mmol/L Chloride 102 (98-107) mmol/L Carbon Dioxide 29.9 (21.0-32.0) mmol/L BUN 11 (7-18) mg/dL Creatinine 1.11 (0.51-1.17) mg/dL Est Cr Clr Drug Dosing 72.82 Estimated GFR (MDRD) > 60 mL/min Glucose 107 H (70-99) mg/dL POC Glucose (65-110) mg/dl Hemoglobin A1c (4.3-5.7) % Lactic Acid (0.4-2.0) mmol/L Uric Acid (2.6-7.2) mg/dL Calcium 7.8 L (8.5-10.1) mg/dL Magnesium (1.8-2.4) mg/dL Total Bilirubin 0.7 (0.2-1.0) mg/dL AST 65 H (15-37) U/L ALT 28 (12-78) U/L Alkaline Phosphatase 237 H (46-116) IU/L Creatine Kinase 40 (26-308) U/L Creatine Kinase Index 0.8 (0.0-2.5) % CK-MB (CK-2) 0.30 (0.00-3.60) ng/mL Troponin I 0.016 (0.000-0.056) ng/mL NT-Pro-B Natriuret Pep 579 H (0-125) pg/mL Total Protein 5.9 L (6.4-8.2) g/dL Albumin 1.9 L (3.4-5.0) g/dL Triglycerides 199 H (30-150) mg/dL Cholesterol 90 L (100-200) mg/dL LDL Cholesterol, Calc 29 (0-100) mg/dL HDL Cholesterol 21 L (40-60) mg/dL TSH, Ultra Sensitive (0.358-3.740) mIU/mL Specimen Type Urine Color Urine Appearance Urine pH (5.0-9.0) Ur Specific [place] (1.005-1.030) Urine Protein (NEGATIVE) mg/dL Urine Glucose (UA) (NEGATIVE) mg/dL Urine Ketones (NEGATIVE) mg/dL Urine Occult Blood (NEGATIVE) Urine Nitrite (NEGATIVE) Urine Bilirubin (NEGATIVE) Urine Urobilinogen (0.2-1.0) E.U./dL Ur Leukocyte Esterase (NEGATIVE) Urine RBC /HPF Urine WBC /HPF Ur Epithelial Cells /LPF Urine Bacteria (NONE TO FEW) /HPF SARS-CoV-2 Ag (Rapid) (NEGATIVE) 10/30/20 10/30/20 10/30/20 Range/Units 07:30 07:30 11:37 WBC (4.0-10.2) K/uL RBC (4.33-5.41) M/uL Hgb (13.1-16.8) g/dL Hct (39.0-49.0) % MCV (84.0-98.0) fL MCH (28.2-33.3) pg MCHC (31.7-36.0) g/dL RDW (11.2-14.1) % Plt Count (150-350) K/uL Neut % (Auto) (45.0-80.0) % Lymph % (Auto) (10.0-50.0) % [place] % (Auto) (2.0-14.0) % Eos % (Auto) (0.0-5.0) % Baso % (Auto) (0.0-2.0) % Neut # (Auto) (1.40-7.00) K/uL Lymph # (Auto) (0.50-3.50) K/uL [place] # (Auto) (0.00-1.00) K/uL Eos # (Auto) (0.00-0.50) K/uL Baso # (Auto) (0.00-0.20) K/uL PT (9.5-12.0) SEC INR APTT (24.5-32.8) SEC D-Dimer, Quantitative (0-400) ng/mL Sodium (136-145) mmol/L Potassium (3.5-5.1) mmol/L Chloride (98-107) mmol/L Carbon Dioxide (21.0-32.0) mmol/L BUN (7-18) mg/dL Creatinine (0.51-1.17) mg/dL Est Cr Clr Drug Dosing Estimated GFR (MDRD) mL/min Glucose (70-99) mg/dL POC Glucose 134 H (65-110) mg/dl Hemoglobin A1c 5.9 H (4.3-5.7) % Lactic Acid 3.3 H (0.4-2.0) mmol/L Uric Acid (2.6-7.2) mg/dL Calcium (8.5-10.1) mg/dL Magnesium (1.8-2.4) mg/dL Total Bilirubin (0.2-1.0) mg/dL AST (15-37) U/L ALT (12-78) U/L Alkaline Phosphatase (46-116) IU/L Creatine Kinase (26-308) U/L Creatine Kinase Index (0.0-2.5) % CK-MB (CK-2) (0.00-3.60) ng/mL Troponin I (0.000-0.056) ng/mL NT-Pro-B Natriuret Pep (0-125) pg/mL Total Protein (6.4-8.2) g/dL Albumin (3.4-5.0) g/dL Triglycerides (30-150) mg/dL Cholesterol (100-200) mg/dL LDL Cholesterol, Calc (0-100) mg/dL HDL Cholesterol (40-60) mg/dL TSH, Ultra Sensitive (0.358-3.740) mIU/mL Specimen Type Urine Color Urine Appearance Urine pH (5.0-9.0) Ur Specific [place] (1.005-1.030) Urine Protein (NEGATIVE) mg/dL Urine Glucose (UA) (NEGATIVE) mg/dL Urine Ketones (NEGATIVE) mg/dL Urine Occult Blood (NEGATIVE) Urine Nitrite (NEGATIVE) Urine Bilirubin (NEGATIVE) Urine Urobilinogen (0.2-1.0) E.U./dL Ur Leukocyte Esterase (NEGATIVE) Urine RBC /HPF Urine WBC /HPF Ur Epithelial Cells /LPF Urine Bacteria (NONE TO FEW) /HPF SARS-CoV-2 Ag (Rapid) (NEGATIVE) 10/30/20 10/30/20 10/30/20 Range/Units 16:46 20:40 22:03 WBC (4.0-10.2) K/uL RBC (4.33-5.41) M/uL Hgb (13.1-16.8) g/dL Hct (39.0-49.0) % MCV (84.0-98.0) fL MCH (28.2-33.3) pg MCHC (31.7-36.0) g/dL RDW (11.2-14.1) % Plt Count (150-350) K/uL Neut % (Auto) (45.0-80.0) % Lymph % (Auto) (10.0-50.0) % [place] % (Auto) (2.0-14.0) % Eos % (Auto) (0.0-5.0) % Baso % (Auto) (0.0-2.0) % Neut # (Auto) (1.40-7.00) K/uL Lymph # (Auto) (0.50-3.50) K/uL [place] # (Auto) (0.00-1.00) K/uL Eos # (Auto) (0.00-0.50) K/uL Baso # (Auto) (0.00-0.20) K/uL PT (9.5-12.0) SEC INR APTT (24.5-32.8) SEC D-Dimer, Quantitative (0-400) ng/mL Sodium 139 (136-145) mmol/L Potassium 4.2 (3.5-5.1) mmol/L Chloride 102 (98-107) mmol/L Carbon Dioxide 32.2 H (21.0-32.0) mmol/L BUN 9 (7-18) mg/dL Creatinine 1.12 (0.51-1.17) mg/dL Est Cr Clr Drug Dosing 72.17 Estimated GFR (MDRD) > 60 mL/min Glucose 119 H (70-99) mg/dL POC Glucose 158 H 158 H (65-110) mg/dl Hemoglobin A1c (4.3-5.7) % Lactic Acid (0.4-2.0) mmol/L Uric Acid (2.6-7.2) mg/dL Calcium 7.7 L (8.5-10.1) mg/dL Magnesium (1.8-2.4) mg/dL Total Bilirubin (0.2-1.0) mg/dL AST (15-37) U/L ALT (12-78) U/L Alkaline Phosphatase (46-116) IU/L Creatine Kinase (26-308) U/L Creatine Kinase Index (0.0-2.5) % CK-MB (CK-2) (0.00-3.60) ng/mL Troponin I 0.003 (0.000-0.056) ng/mL NT-Pro-B Natriuret Pep (0-125) pg/mL Total Protein (6.4-8.2) g/dL Albumin (3.4-5.0) g/dL Triglycerides (30-150) mg/dL Cholesterol (100-200) mg/dL LDL Cholesterol, Calc (0-100) mg/dL HDL Cholesterol (40-60) mg/dL TSH, Ultra Sensitive (0.358-3.740) mIU/mL Specimen Type Urine Color Urine Appearance Urine pH (5.0-9.0) Ur Specific [place] (1.005-1.030) Urine Protein (NEGATIVE) mg/dL Urine Glucose (UA) (NEGATIVE) mg/dL Urine Ketones (NEGATIVE) mg/dL Urine Occult Blood (NEGATIVE) Urine Nitrite (NEGATIVE) Urine Bilirubin (NEGATIVE) Urine Urobilinogen (0.2-1.0) E.U./dL Ur Leukocyte Esterase (NEGATIVE) Urine RBC /HPF Urine WBC /HPF Ur Epithelial Cells /LPF Urine Bacteria (NONE TO FEW) /HPF SARS-CoV-2 Ag (Rapid) (NEGATIVE) 10/30/20 10/30/20 Range/Units 22:03 22:40 WBC (4.0-10.2) K/uL RBC (4.33-5.41) M/uL Hgb (13.1-16.8) g/dL Hct (39.0-49.0) % MCV (84.0-98.0) fL MCH (28.2-33.3) pg MCHC (31.7-36.0) g/dL RDW (11.2-14.1) % Plt Count (150-350) K/uL Neut % (Auto) (45.0-80.0) % Lymph % (Auto) (10.0-50.0) % [place] % (Auto) (2.0-14.0) % Eos % (Auto) (0.0-5.0) % Baso % (Auto) (0.0-2.0) % Neut # (Auto) (1.40-7.00) K/uL Lymph # (Auto) (0.50-3.50) K/uL [place] # (Auto) (0.00-1.00) K/uL Eos # (Auto) (0.00-0.50) K/uL Baso # (Auto) (0.00-0.20) K/uL PT (9.5-12.0) SEC INR APTT (24.5-32.8) SEC D-Dimer, Quantitative (0-400) ng/mL Sodium (136-145) mmol/L Potassium (3.5-5.1) mmol/L Chloride (98-107) mmol/L Carbon Dioxide (21.0-32.0) mmol/L BUN (7-18) mg/dL Creatinine (0.51-1.17) mg/dL Est Cr Clr Drug Dosing Estimated GFR (MDRD) mL/min Glucose (70-99) mg/dL POC Glucose (65-110) mg/dl Hemoglobin A1c (4.3-5.7) % Lactic Acid (0.4-2.0) mmol/L Uric Acid (2.6-7.2) mg/dL Calcium (8.5-10.1) mg/dL Magnesium 1.5 L (1.8-2.4) mg/dL Total Bilirubin (0.2-1.0) mg/dL AST (15-37) U/L ALT (12-78) U/L Alkaline Phosphatase (46-116) IU/L Creatine Kinase 69 (26-308) U/L Creatine Kinase Index 0.6 (0.0-2.5) % CK-MB (CK-2) 0.40 (0.00-3.60) ng/mL Troponin I (0.000-0.056) ng/mL NT-Pro-B Natriuret Pep (0-125) pg/mL Total Protein (6.4-8.2) g/dL Albumin (3.4-5.0) g/dL Triglycerides (30-150) mg/dL Cholesterol (100-200) mg/dL LDL Cholesterol, Calc (0-100) mg/dL HDL Cholesterol (40-60) mg/dL TSH, Ultra Sensitive (0.358-3.740) mIU/mL Specimen Type Urine Color Urine Appearance Urine pH (5.0-9.0) Ur Specific [place] (1.005-1.030) Urine Protein (NEGATIVE) mg/dL Urine Glucose (UA) (NEGATIVE) mg/dL Urine Ketones (NEGATIVE) mg/dL Urine Occult Blood (NEGATIVE) Urine Nitrite (NEGATIVE) Urine Bilirubin (NEGATIVE) Urine Urobilinogen (0.2-1.0) E.U./dL Ur Leukocyte Esterase (NEGATIVE) Urine RBC /HPF Urine WBC /HPF Ur Epithelial Cells /LPF Urine Bacteria (NONE TO FEW) /HPF SARS-CoV-2 Ag (Rapid) Negative (NEGATIVE) [place] Results - Last 24 hrs: Microbiology 10/29/20 15:01 Stool Occult Blood ([facility]) - Final Stool / Feces NEGATIVE OCCULT BLOOD REFERENCE RANGE: NEGATIVE Urine specimen for culture and sensitivity results pending Med Orders - Current: Current Medications Acetaminophen (Tylenol) 650 mg PO Q4H PRN PRN Reason: Pain Cyanocobalamin (Vitamin B12) 1,000 mcg PO DAILY [facility] Last Admin: 10/30/20 07:28 Dose: 1,000 mcg Documented by: Dextrose/Water (Dextrose 50% In Water) 50 ml IV ASDIRECTED PRN PRN Reason: Hypoglycemia Enoxaparin Sodium (Lovenox) 40 mg SUBCUT Q24H [facility] Last Admin: 10/30/20 20:36 Dose: 40 mg Documented by: Fish Oil (Fish Oil) 1 gm PO Q12HR [facility] Last Admin: 10/30/20 20:35 Dose: 1 gm Documented by: Fluticasone Propionate (Flonase) 0 gm NASBOTH DAILY PRN PRN Reason: Allergies Last Admin: 10/30/20 07:27 Dose: 1 spray Documented by: Furosemide (Lasix) 40 mg IVPUSH Q8H [facility] Last Admin: 10/30/20 21:34 Dose: 40 mg Documented by: Gabapentin (Neurontin) 600 mg PO 0000,1200 [facility] Last Admin: 10/30/20 12:42 Dose: 600 mg Documented by: Gabapentin (Neurontin) 600 mg PO 0800,1600,2000 [facility] Last Admin: 10/30/20 20:37 Dose: 600 mg Documented by: Glucagon (Glucagen) 1 mg IM ASDIRECTED PRN PRN Reason: Hypoglycemia Hydroxyzine Pamoate (Vistaril) 25 mg PO Q6H PRN PRN Reason: Nausea Last Admin: 10/30/20 21:34 Dose: 25 mg Documented by: Lactated Ringer's (Ringers, Lactated) 1,000 mls @ 100 mls/hr IV ASDIRECTED [facility] Last Admin: 10/30/20 22:15 Dose: 100 mls/hr Documented by: Magnesium Sulfate (Magnesium Sulfate In Water 4 Gm/100 Ml) 4 gm in 100 mls @ 25 mls/hr IV ONETIME ONE Stop: 10/31/20 02:14 Insulin Human Lispro (Humalog) 0 unit SUBCUT QIDACANDBED [facility]; Protocol Last Admin: 10/30/20 20:42 Dose: 2 units Documented by: Loperamide HCl (Imodium Ad) 2 mg PO Q6H PRN PRN Reason: Diarrhea Lorazepam (Ativan) 1 mg PO Q6H PRN PRN Reason: Anxiety Last Admin: 10/30/20 21:34 Dose: 1 mg Documented by: Losartan Potassium (Cozaar) 100 mg PO DAILY [facility] Last Admin: 10/30/20 07:29 Dose: 100 mg Documented by: Magnesium Oxide (Magnesium Oxide) 400 mg PO BID [facility] Last Admin: 10/30/20 17:08 Dose: 400 mg Documented by: Metoprolol Tartrate (Lopressor) 50 mg PO Q12HR [facility] Last Admin: 10/30/20 20:41 Dose: 50 mg Documented by: Multivitamins/Minerals/Vitamin C (Tab-A-Barbie) 1 tab PO DAILY [facility] Last Admin: 10/30/20 07:29 Dose: 1 tab Documented by: Nystatin (Nystop) 0 gm TOP QID [facility] Last Admin: 10/30/20 20:38 Dose: 1 applic Documented by: Oxycodone HCl (Oxycodone) 5 mg PO Q6HR PRN PRN Reason: Pain Last Admin: 10/30/20 21:33 Dose: 5 mg Documented by: Pantoprazole Sodium (Protonix Iv) 40 mg IVPUSH 799,1999 [facility] Last Admin: 10/30/20 20:41 Dose: 40 mg Documented by: Potassium Chloride (Klor-Con M20) 20 meq PO TID [facility] Last Admin: 10/30/20 17:08 Dose: 20 meq Documented by: Pramipexole Dihydrochloride (Mirapex) 0.25 mg PO Q12HR [facility] Last Admin: 10/30/20 20:36 Dose: 0.25 mg Documented by: Primidone (Mysoline) 50 mg PO Q12HR [facility] Last Admin: 10/30/20 20:37 Dose: 50 mg Documented by: Simvastatin (Zocor) 20 mg PO BEDTIME [facility] Last Admin: 10/30/20 20:42 Dose: 20 mg Documented by: Sodium Chloride (Saline Flush) 10 ml FLUSH ASDIRECTED PRN PRN Reason: Keep Vein Open Last Admin: 10/30/20 13:30 Dose: 10 ml Documented by: Sodium Chloride (Saline Flush) 10 ml FLUSH Q12HR PRN PRN Reason: Keep Vein Open Discontinued Medications Aspirin (Aspirin) 324 mg CHEW ONETIME ONE Stop: 10/29/20 18:40 Last Admin: 10/29/20 18:53 Dose: 324 mg Documented by: Enoxaparin Sodium (Lovenox) 100 mg SUBCUT Q24H [facility] Last Admin: 10/30/20 00:09 Dose: 100 mg Documented by: Famotidine (Pepcid) 40 mg IVPUSH ONETIME ONE Stop: 10/29/20 18:40 Last Admin: 10/29/20 18:53 Dose: 40 mg Documented by: Lactated Ringer's (Ringers, Lactated) 1,000 mls @ 999 mls/hr IV .BOLUS ONE Stop: 10/29/20 20:35 Last Admin: 10/29/20 20:00 Dose: 999 mls/hr Documented by: Magnesium Sulfate (Magnesium Sulfate In Water 4 Gm/100 Ml) 4 gm in 100 mls @ 25 mls/hr IV ONETIME ONE Stop: 10/30/20 02:34 Last Admin: 10/30/20 00:05 Dose: 25 mls/hr Documented by: Iopamidol (Isovue-370 (76%)) 100 ml IVPUSH ONETIME ONE Stop: 10/29/20 13:01 Last Admin: 10/30/20 07:33 Dose: Not Given Documented by: Iopamidol (Isovue-370 (76%)) Confirm Administered Dose 100 ml .ROUTE .STK-MED ONE Stop: 10/29/20 19:54 Last Admin: 10/29/20 20:00 Dose: 100 ml Documented by: Lidocaine HCl (Glydo) Confirm Administered Dose 11 ml .ROUTE .STK-MED ONE Stop: 10/29/20 22:56 Last Admin: 10/30/20 00:09 Dose: 11 ml Documented by: Loperamide HCl (Imodium Ad) 2 mg PO BEDTIME [facility] Last Admin: 10/30/20 00:06 Dose: 2 mg Documented by: Lorazepam (Ativan) 1 mg IVPUSH ONETIME ONE Stop: 10/29/20 20:08 Last Admin: 10/29/20 20:17 Dose: 1 mg Documented by: Lorazepam (Ativan) 1 mg IVPUSH Q4H PRN PRN Reason: Anxiety Metoprolol Tartrate (Lopressor) 2.5 mg IVPUSH ONETIME ONE Stop: 10/30/20 22:11 Last Admin: 10/30/20 22:16 Dose: 2.5 mg Documented by: Pantoprazole Sodium (Protonix Iv) 40 mg IVPUSH ONETIME ONE Stop: 10/29/20 20:09 Last Admin: 10/29/20 20:17 Dose: 40 mg Documented by: Simethicone (Simethicone) 160 mg PO ONETIME ONE Stop: 10/30/20 09:20 Last Admin: 10/30/20 09:43 Dose: 160 mg Documented by: Temazepam (Restoril) 15 mg PO BEDTIME PRN PRN Reason: Insomnia Ticagrelor (Brilinta) 180 mg PO ONETIME ONE Stop: 10/29/20 18:40 Last Admin: 10/29/20 18:53 Dose: 180 mg Documented by: - Exam Quality Assessment: Reports: Supplemental Oxygen, Urine Catheter, DVT Prophylaxis (Lovenox). Denies: Central Line/PICC, Skin Breakdown, Restraints General: Reports: Alert, Oriented, Cooperative, No Acute Distress HEENT: Reports: Pupils Equal, Pupils Reactive, EOMI, Mucous Membr. Moist/Charco. Denies: Scleral Icterus Neck: Reports: Supple, Trachea Midline, No JVD, No Thyromegaly, +2 Carotid Pulse wo Bruit. Denies: Lymphadenopathy, Thyromegaly Lungs: Reports: Normal Respiratory Effort, Rales (Mild bilateral basilar rales). Denies: Rhonchi, Rub, Wheezing Cardiovascular: Reports: Regular Rate, Regular Rhythm, No Murmurs. Denies: Gallops, Rubs GI/Abdominal Exam: Normal Bowel Sounds, Soft, Non-Tender, No Organomegaly, No Distention, No Abnormal Bruit, No Mass, Other (Morbidly obese). No: Guarding (Male) Exam: Deferred Rectal (Males) Exam: Deferred Back Exam: Reports: Normal Inspection, Full Range of Motion. Denies: CVA Tenderness (L), CVA Tenderness (R), Muscle Spasm Extremities: Normal Range of Motion, Non-Tender, Normal Capillary Refill, Pedal Edema (Improved bilateral +1 pedal/pretibial edema of the lower extremities). No: Reza's Sign Skin: Reports: Warm, Dry, Intact, Rash (Tinea cruris), Ecchymosis Neurological: Reports: No New Focal Deficit, Other (Severe generalized weakness affecting ADLs) Psy/Mental Status: Reports: Alert, Anxious (Moderate), Depressed (Mild). Denies: Agitated, Hallucinations, Withdrawal Symptoms #1 Interpretation EKG Date: 10/30/20 Time: 22:25 Rhythm: NSR Rate (Beats/Min): 77 [place]: Normal (Neutral) P-Wave: Present QRS: Normal (0.82 seconds) ST-T: Normal QT: Normal (Resolution of previous borderline QT prolongation) VA/PQ Interval: 0.24 seconds representing a mildly progressive first-degree AV block. Stable extreme poor R wave progression in the anterior leads Comparison: Change From Previous EKG (As above since last EKG earlier today at 7:38 AM.) EKG Interpretation Comments: 1. No acute ischemic changes 2. First-degree AV block
[2020-10-30 22:54] VITALS: PULSE 83
[2020-10-30 23:05] LABS: CHLORIDE,CL 102 mmol/L (98-107); SODIUM,NA 139 mmol/L (136-145)
== END 2020-10-31 00:50 | DRG 291 ==
LOC: LL.ED 18:30 → LL.MS 21:57 → UNDOADMIN 21:57 → LL.MS 22:28 → UNDODISIN 10-31 00:50
PROVIDERS: ADMIT Family Medicine; ATTEND Family Medicine
DX: I13.0 Hypertensive heart and chronic kidney disease with heart failure and stage 1 through stage 4 chronic kidney disease, or unspecified chronic kidney disease (principal); I50.23 Acute on chronic systolic (congestive) heart failure; I47.2 Ventricular tachycardia; R18.8 Other ascites; R79.89 Other specified abnormal findings of blood chemistry; E11.22 Type 2 diabetes mellitus with diabetic chronic kidney disease; N18.31 Chronic kidney disease, stage 3a; E79.0 Hyperuricemia without signs of inflammatory arthritis and tophaceous disease; E88.09 Other disorders of plasma-protein metabolism, not elsewhere classified; E83.51 Hypocalcemia; E83.42 Hypomagnesemia; D53.9 Nutritional anemia, unspecified; E78.5 Hyperlipidemia, unspecified; K21.9 Gastro-esophageal reflux disease without esophagitis; N18.30 Chronic kidney disease, stage 3 unspecified; Z79.899 Other long term (current) drug therapy; F41.8 Other specified anxiety disorders; I44.0 Atrioventricular block, first degree; M19.90 Unspecified osteoarthritis, unspecified site; K57.90 Diverticulosis of intestine, part unspecified, without perforation or abscess without bleeding; E03.9 Hypothyroidism, unspecified; B35.9 Dermatophytosis, unspecified; N40.0 Benign prostatic hyperplasia without lower urinary tract symptoms; E11.21 Type 2 diabetes mellitus with diabetic nephropathy; G89.29 Other chronic pain; M54.9 Dorsalgia, unspecified; M54.2 Cervicalgia; F41.9 Anxiety disorder, unspecified; F32.9 Major depressive disorder, single episode, unspecified; E66.01 Morbid (severe) obesity due to excess calories; D64.9 Anemia, unspecified; Z90.49 Acquired absence of other specified parts of digestive tract; Z90.89 Acquired absence of other organs; H54.7 Unspecified visual loss; I25.10 Atherosclerotic heart disease of native coronary artery without angina pectoris; I25.2 Old myocardial infarction; E78.00 Pure hypercholesterolemia, unspecified; G47.30 Sleep apnea, unspecified; Z79.84 Long term (current) use of oral hypoglycemic drugs; Z88.0 Allergy status to penicillin; Z20.822 Contact with and (suspected) exposure to COVID-19
CPT/HCPCS: 36415; 51702; 71045; 71275; 80048; 80053; 80061; 81001; 82272; 82550; 82553; 82962; 83036; 83605; 83735; 83880; 84443; 84484; 84550; 85025; 85379; 85610; 85730; 87086; 87338; 87426; 93005; 93010; 93306; 93970; 94761; 96374; 96375; 97163-GP; 97165-GO; 99222; 99239; 99285-25; A9270-GY; C9113; J1650; J1815-GY; J1940; J2060; J3475; J3490; J7120; Q0177; Q9967

== ENCOUNTER 2021-06-20 13:00 | Emergency (ER) | payer MEDICARE, BC ==
[2021-06-20 14:04] LABS: CHLORIDE,CL 106 mmol/L (98-107); SODIUM,NA 144 mmol/L (136-145)
[2021-06-20] MEDS ORDERED: oxyCODONE 5 MG Tab PO ONE (14:08)
[2021-06-20 14:09] LABS: ANION GAP 10.5 meq/L (7-15)
--- NOTE | 2021-06-20 14:19 | EDM.PDOC ---
ED HPI GENERAL MEDICAL PROBLEM - General Chief Complaint: General Stated Complaint: SOB, weakness Time Seen by Provider: 06/20/21 13:19 Source of Information: Reports: Patient History Limitations: Reports: No Limitations - History of Present Illness INITIAL COMMENTS - FREE TEXT/NARRATIVE: Worsening SOB/weakness. No fevers/coughs. Some discomfort right lower lung area but no radiation of pain/injury history. Was here 05/29 for SOB but significantly improved after blood transfusion. Discharged after observation admission and then received iron infusions. Anemia has been worked up by his providers including GI to look for occult blood loss but it does not appear that any specific cause has been identified. Denies fevers/chills or other acute changes. Does not note any increased fluid load/peripheral edema. 55% EF per cardiac echo last October. - Related Data Allergies Allergy/AdvReac Type Severity Reaction Status Date / Time duloxetine [From Cymbalta] Allergy Burning Verified 06/20/21 13:25 Penicillins Allergy Swelling Verified 06/20/21 13:25 temazepam [From Restoril] Allergy confusion, Verified 06/20/21 13:25 agitation Home Meds: Home Meds Multivitamin [Daily Multiple Vitamin] 1 tab PO DAILY 08/06/16 [History] Losartan Potassium 100 mg PO DAILY 01/10/20 [History] [place]-3S/DHA/Epa/Fish Oil [[place]-3 Fish Oil 1,000 mg Sfgl] 1,000 mg PO BID 01/10/20 [History] Omeprazole 40 mg PO BIDMEALS 01/10/20 [History] Pramipexole [Mirapex] 0.25 mg PO DAILY 01/10/20 [History] Primidone 50 mg PO Q12HR 01/10/20 [History] hydrOXYzine HCL [Hydroxyzine HCl] 25 mg PO Q6HR PRN 01/10/20 [History] Gabapentin [Neurontin] 600 mg PO 5XDAY@00,08,12,16,20 10/29/20 [History] Loperamide HCl [Imodium A-D] 2 mg PO ASDIRECTED 10/29/20 [History] Fluticasone Propionate [Flonase] 1 spray NASBOTH BID PRN 10/30/20 [History] Aspirin [Halfprin] 81 mg PO DAILY 11/02/20 [History] Carboxymethylcellulose Sodium [Artificial Tears] 1 drop EYEBOTH Q4HR PRN 11/02/20 [History] Cyanocobalamin (Vitamin B-12) [Vitamin B-12] 250 mcg PO DAILY 11/02/20 [History] Iron Polysaccharide Complex [Poly-Iron] 150 mg PO ASDIRECTED 11/02/20 [History] Magnesium 500 mg BID 11/02/20 [History] Ondansetron [Zofran ODT] 4 mg PO Q6H PRN 11/02/20 [History] Potassium Chloride 20 meq PO DAILY 11/02/20 [History] Tamsulosin [Flomax] 0.4 mg PO DAILY 11/02/20 [History] Torsemide [Demadex] 20 mg PO DAILY 11/02/20 [History] atorvaSTATin Calcium [Lipitor] 40 mg PO BEDTIME 11/02/20 [History] metFORMIN HCl [Metformin HCl ER] 1,500 mg PO DAILY 11/02/20 [History] oxyCODONE HCl/Acetaminophen [Oxycodone-Acetaminophen 5-325] 1 each PO BID PRN 11/02/20 [History] Acetaminophen [Acetaminophen 8 Hour] 650 mg PO TID 05/29/21 [History] Lidocaine [Salonpas] 1 patch TOP QID PRN 05/29/21 [History] Pramipexole [Mirapex] 0.5 mg PO QPM 05/29/21 [History] Simethicone [Anti-Gas] 360 mg PO Q6H PRN 05/29/21 [History] Torsemide [Demadex] 10 mg PO WITHLUNCH 05/29/21 [History] traZODone 0.5 tab PO BEDTIME PRN 05/29/21 [History] Magnesium Oxide [Magnesium Oxide 400] 240 mg PO BID #14 powd.pack 05/31/21 [Rx] Pramipexole [Mirapex] 0.25 mg PO DAILY tablet 05/31/21 [Rx] Pramipexole [Mirapex] 0.5 mg PO BEDTIME tablet 05/31/21 [Rx] Past Medical History HEENT History: Reports: Impaired Vision, Sinusitis, Other (See Below) Other HEENT History: Patient wears reading glasses. No diabetic retinopathy. Chronic bilateral tinnitus. Cardiovascular History: Reports: Arrhythmia, CAD, Cardiomyopathy, Heart Failure, High Cholesterol, Hypertension, [place], Syncope, Other (See Below) Other Cardiovascular History: First-degree AV block. Non-STEMI on 08/07/2016 with no procedures performed, including angiogram, etc.. Dyslipidemia. Recurrent syncopal episodes in 2016 possibly secondary to his heart disease as above. Ejection fracture 50-55% on echo 10/30/20 Respiratory History: Reports: Bronchitis, Recurrent, Intubation, Previous, Sleep Apnea, SOB, Other (See Below) Other Respiratory History: Patient does not use CPAP. Gastrointestinal History: Reports: Cholelithiasis, Colon Polyp, Diverticulosis, GERD, Other (See Below) Other Gastrointestinal History: Chronic ascites. Necrotic cholelithiasis with borderline sepsis in January 2020. Recurrent multiple colonic polypsbenign?. Benign hepatic cysts by CT scan. Genitourinary History: Reports: BPH, Chronic Renal Insuffiency, Diabetic Nephropathy, Prostate Disorder, Urinary Incontinence Musculoskeletal History: Reports: Arthritis, Back Pain, Chronic, Neck Pain, Chronic, Osteoarthritis Neurological History: Reports: Neuropathy, Diabetic, Neuropathy, Peripheral, Other (See Below) Other Neuro History: Benign resting tremor. Psychiatric History: Reports: Addiction, Anxiety, Depression, Other (See Below) Other Psychiatric History: Chronic narcotic use secondary to chronic pain syndrome and neuropathy. Endocrine/Metabolic History: Reports: Diabetes, Type II, Obesity/BMI 30+, Other (See Below) Other Endocrine/Metabolic History: Morbid obesity. Hypocalcemia. Hyponatremia. Immunologic History: Reports: None Oncologic (Cancer) History: Reports: None Dermatologic History: Reports: Other (See Below) Other Dermatologic History: Dry skin - Infectious Disease History Infectious Disease History: Reports: Chicken Pox, Measles, Mumps - Past Surgical History Head Surgeries/Procedures: Reports: None HEENT Surgical History: Reports: Adenoidectomy, Oral Surgery, Tonsillectomy, Other (See Below) Other HEENT Surgeries/Procedures: [place] teeth extraction x4. Additional teeth extractions. Tonsillectomy and adenoidectomy at age 4. Cardiovascular Surgical History: Reports: None Respiratory Surgical History: Reports: None GI Surgical History: Reports: Cholecystectomy, Colonoscopy, Polypectomy, Other (See Below) Other GI Surgeries/Procedures: Multiple polypectomies for benign disease with last colonoscopy in 2018. Male Surgical History: Reports: Circumcision, Other (See Below) Other Male Surgeries/Procedures: Circumcision as an infant. Bilateral hydrocele repair in about 2009. Endocrine Surgical History: Reports: None Neurological Surgical History: Reports: None Musculoskeletal Surgical History: Reports: Joint Replacement, Knee Replacement, Other (See Below) Other Musculoskeletal Surgeries/Procedures:: Bilateral TKA in 2015. Right thumb tendon repair in about 1979. Oncologic Surgical History: Reports: None Dermatological Surgical History: Reports: None - Past Imaging History Past Imaging History: Reports: CAT Scan (CT of the abdomen and pelvis on 01/10/2020 and 08/02/2014.). Denies: Angiography, Cardiac Echo Social & Family History - Family History HEENT: Reports: None Cardiac: Reports: Arrhythmia, Hypertension, Other (See Below) Other Cardiac Family History: Brother with hyperlipidemia. Brother with ventricular tachycardia on subsequent asystole? Respiratory: Reports: None GI: Reports: Colon Polyps, Other (See Below) Other GI Family History: Mother with colon cancer as below. : Reports: None OBGYN: Reports: None Musculoskeletal: Reports: None Neurological: Reports: CVA, Parkinson's, Other (See Below) Other Neurological Family History: Father with Parkinson's disease. Brother with recurrent CVA. Endocrine/Metabolic: Reports: None Hematologic: Reports: None Immunologic: Reports: None Dermatologic: Reports: None Oncologic: Reports: Colon, Lymphoma, Ovarian, Skin, Uterine, Other (See Below) Other Oncologic Family History: Sister with fatal lymphoma in her 60s. Another sister with unknown type of skin cancer and breast cancer. Mother with multiple cancers including breast cancer, ovarian cancer and colon cancer x2 with fatal colon surgery. - Caffeine Use Caffeine Use: Reports: None - Living Situation & Occupation Living situation: Reports: (1981, 2 children), with Family () Occupation: Disabled (Disabled secondary to his chronic neuropathy, osteoarthritis, chronic pain syndrome. Retired [employer].) ED ROS GENERAL - Review of Systems Review Of Systems: See Below Constitutional: Reports: Weakness, Fatigue. Denies: Fever, Chills, Malaise, Night Sweats, Diaphoresis, Decreased Appetite HEENT: Reports: No Symptoms Respiratory: Reports: Shortness of Breath, Other (chest discomfort right lower lung/chest area). Denies: Wheezing, Cough, Sputum, Hemoptysis Cardiovascular: Reports: Dyspnea on Exertion, Edema. Denies: Lightheadedness, Syncope GI/Abdominal: Reports: Other (no acute changes) : Reports: No Symptoms Musculoskeletal: Reports: Other (chronic pain patient, only change is increased right chest pain/rib area ) Skin: Reports: Other (no acute changes) Neurological: Reports: Confusion (waking up with confusion/seems sleep related per , improves afterwards. 87% noted on home ox. ), Weakness (chronic,worsenins), Change in Speech (slurred words when confused/waking up. ). Denies: Dizziness, Headache Psychiatric: Reports: No Symptoms ED EXAM, GENERAL - Physical Exam Exam: See Below Exam Limited By: No Limitations General Appearance: Alert, No Apparent Distress, Obese Eye Exam: Bilateral Eye: EOMI, PERRL Ears: Hearing Grossly Normal Nose: No: Normal Mucosa, Nasal Swelling Throat/Mouth: Normal Lips, Normal Voice, No Airway Compromise Head: Atraumatic, Normocephalic Neck: Supple Respiratory/Chest: Chest Non-Tender, Accessory Muscle Use. No: Rales, Rhonchi, Wheezing, Retractions Cardiovascular: Regular Rate, Rhythm GI/Abdominal: Soft, Non-Tender, Other (obese) (Male) Exam: Deferred Rectal (Males) Exam: Deferred Back Exam: No: Muscle Spasm Extremities: Non-Tender, Pedal Edema Neurological: Alert, Oriented, Normal Cognition, Other (equal tone bilat) Psychiatric: Normal Affect, Normal Mood Skin Exam: Warm Course - Vital Signs Last Recorded V/S: Last Vital Signs Temp 36.3 C 06/20/21 17:32 Pulse 66 06/20/21 17:32 Resp 16 06/20/21 17:32 BP 123/78 06/20/21 17:32 Pulse Ox 99 06/20/21 17:32 - Orders/Labs/Meds Orders: Active Orders 24 hr Category Date Time Status Oxygen Therapy, ED [RC] ASDIRECTED Care 06/20/21 13:13 Active Chest 2V [CR] Stat Exams 06/20/21 13:14 Taken PE Chest [Ang Chest] [CT] Stat Exams 06/20/21 14:12 Taken Sodium Chloride 0.9% [Saline Flush] Med 06/20/21 14:29 Active 10 ml FLUSH ONETIME PRN EKG 12 Lead [EK] Routine Ther 06/20/21 14:33 Ordered Medication Orders Sodium Chloride (Sodium Chloride 0.9% 10 Ml Syringe) 10 ml FLUSH ONETIME PRN PRN Reason: Keep Vein Open Stop: 06/20/21 23:00 Labs: Laboratory Tests 06/20/21 06/20/21 06/20/21 Range/Units 13:06 13:12 13:30 WBC 6.2 (4.0-10.2) K/uL RBC 4.14 L (4.33-5.41) M/uL Hgb 10.8 L (13.1-16.8) g/dL Hct 36.9 L (39.0-49.0) % MCV 89.1 D (84.0-98.0) fL MCH 26.1 L (28.2-33.3) pg MCHC 29.3 L (31.7-36.0) g/dL RDW 28.4 H (11.2-14.1) % Plt Count 367 H (150-350) K/uL Neut % (Auto) 65.8 (45.0-80.0) % Lymph % (Auto) 21.8 (10.0-50.0) % [place] % (Auto) 8.7 (2.0-14.0) % Eos % (Auto) 3.1 (0.0-5.0) % Baso % (Auto) 0.6 (0.0-2.0) % Neut # (Auto) 4.07 (1.40-7.00) K/uL Lymph # (Auto) 1.35 (0.50-3.50) K/uL [place] # (Auto) 0.54 (0.00-1.00) K/uL Eos # (Auto) 0.19 (0.00-0.50) K/uL Baso # (Auto) 0.04 (0.00-0.20) K/uL D-Dimer, Quantitative (0-400) ng/mL VBG pH (7.31-7.41) VBG pCO2 (41-51) mmHG VBG pO2 mmHG VBG HCO3 (23-28) mmol/L VBG Total CO2 mmol/L VBG O2 Saturation % VBG Base Excess ((-2)-3) mmol/L O2 Delivery Device Sodium 144 (136-145) mmol/L Potassium 4.7 (3.5-5.1) mmol/L Chloride 106 (98-107) mmol/L Carbon Dioxide 32.2 H (21.0-32.0) mmol/L Anion Gap 10.5 (7-15) meq/L BUN 13 (7-18) mg/dL Creatinine 1.28 H (0.51-1.17) mg/dL Est Cr Clr Drug Dosing TNP Estimated GFR (MDRD) 56 mL/min Glucose 121 H (70-99) mg/dL Lactic Acid 2.0 (0.4-2.0) mmol/L Calcium 8.3 L (8.5-10.1) mg/dL Magnesium 1.9 (1.8-2.4) mg/dL Total Bilirubin 0.2 (0.2-1.0) mg/dL AST 21 (15-37) U/L ALT 16 (12-78) U/L Alkaline Phosphatase 131 H (46-116) IU/L Troponin I High Sens (<=76) ng/L NT-Pro-B Natriuret Pep 1101 H (0-125) pg/mL Total Protein 6.3 L (6.4-8.2) g/dL Albumin 2.1 L (3.4-5.0) g/dL Specimen Type Urine Color Urine Appearance Urine pH (5.0-9.0) Ur Specific [place] (1.005-1.030) Urine Protein (NEGATIVE) mg/dL Urine Glucose (UA) (NEGATIVE) mg/dL Urine Ketones (NEGATIVE) mg/dL Urine Occult Blood (NEGATIVE) Urine Nitrite (NEGATIVE) Urine Bilirubin (NEGATIVE) Urine Urobilinogen (0.2-1.0) E.U./dL Ur Leukocyte Esterase (NEGATIVE) Urine RBC /HPF Urine WBC /HPF Ur Epithelial Cells /LPF Urine Bacteria (NONE TO FEW) /HPF SARS-CoV-2 RNA ([place]) (NEGATIVE) 06/20/21 06/20/21 06/20/21 Range/Units 13:30 13:55 15:00 WBC (4.0-10.2) K/uL RBC (4.33-5.41) M/uL Hgb (13.1-16.8) g/dL Hct (39.0-49.0) % MCV (84.0-98.0) fL MCH (28.2-33.3) pg MCHC (31.7-36.0) g/dL RDW (11.2-14.1) % Plt Count (150-350) K/uL Neut % (Auto) (45.0-80.0) % Lymph % (Auto) (10.0-50.0) % [place] % (Auto) (2.0-14.0) % Eos % (Auto) (0.0-5.0) % Baso % (Auto) (0.0-2.0) % Neut # (Auto) (1.40-7.00) K/uL Lymph # (Auto) (0.50-3.50) K/uL [place] # (Auto) (0.00-1.00) K/uL Eos # (Auto) (0.00-0.50) K/uL Baso # (Auto) (0.00-0.20) K/uL D-Dimer, Quantitative 480 H (0-400) ng/mL VBG pH 7.32 (7.31-7.41) VBG pCO2 66 H (41-51) mmHG VBG pO2 25 mmHG VBG HCO3 34 H (23-28) mmol/L VBG Total CO2 34 mmol/L VBG O2 Saturation 37 % VBG Base Excess 6 H ((-2)-3) mmol/L O2 Delivery Device Room air Sodium (136-145) mmol/L Potassium (3.5-5.1) mmol/L Chloride (98-107) mmol/L Carbon Dioxide (21.0-32.0) mmol/L Anion Gap (7-15) meq/L BUN (7-18) mg/dL Creatinine (0.51-1.17) mg/dL Est Cr Clr Drug Dosing Estimated GFR (MDRD) mL/min Glucose (70-99) mg/dL Lactic Acid (0.4-2.0) mmol/L Calcium (8.5-10.1) mg/dL Magnesium (1.8-2.4) mg/dL Total Bilirubin (0.2-1.0) mg/dL AST (15-37) U/L ALT (12-78) U/L Alkaline Phosphatase (46-116) IU/L Troponin I High Sens (<=76) ng/L NT-Pro-B Natriuret Pep (0-125) pg/mL Total Protein (6.4-8.2) g/dL Albumin (3.4-5.0) g/dL Specimen Type Urinvoid Urine Color Yellow Urine Appearance Clear Urine pH 7.0 (5.0-9.0) Ur Specific [place] 1.020 (1.005-1.030) Urine Protein Negative (NEGATIVE) mg/dL Urine Glucose (UA) Negative (NEGATIVE) mg/dL Urine Ketones Negative (NEGATIVE) mg/dL Urine Occult Blood Negative (NEGATIVE) Urine Nitrite Negative (NEGATIVE) Urine Bilirubin Negative (NEGATIVE) Urine Urobilinogen 0.2 (0.2-1.0) E.U./dL Ur Leukocyte Esterase Negative (NEGATIVE) Urine RBC 0-5 /HPF Urine WBC 0-5 /HPF Ur Epithelial Cells Rare /LPF Urine Bacteria Rare (NONE TO FEW) /HPF SARS-CoV-2 RNA ([place]) (NEGATIVE) 06/20/21 06/20/21 Range/Units 15:00 16:46 WBC (4.0-10.2) K/uL RBC (4.33-5.41) M/uL Hgb (13.1-16.8) g/dL Hct (39.0-49.0) % MCV (84.0-98.0) fL MCH (28.2-33.3) pg MCHC (31.7-36.0) g/dL RDW (11.2-14.1) % Plt Count (150-350) K/uL Neut % (Auto) (45.0-80.0) % Lymph % (Auto) (10.0-50.0) % [place] % (Auto) (2.0-14.0) % Eos % (Auto) (0.0-5.0) % Baso % (Auto) (0.0-2.0) % Neut # (Auto) (1.40-7.00) K/uL Lymph # (Auto) (0.50-3.50) K/uL [place] # (Auto) (0.00-1.00) K/uL Eos # (Auto) (0.00-0.50) K/uL Baso # (Auto) (0.00-0.20) K/uL D-Dimer, Quantitative (0-400) ng/mL VBG pH (7.31-7.41) VBG pCO2 (41-51) mmHG VBG pO2 mmHG VBG HCO3 (23-28) mmol/L VBG Total CO2 mmol/L VBG O2 Saturation % VBG Base Excess ((-2)-3) mmol/L O2 Delivery Device Sodium (136-145) mmol/L Potassium (3.5-5.1) mmol/L Chloride (98-107) mmol/L Carbon Dioxide (21.0-32.0) mmol/L Anion Gap (7-15) meq/L BUN (7-18) mg/dL Creatinine (0.51-1.17) mg/dL Est Cr Clr Drug Dosing Estimated GFR (MDRD) mL/min Glucose (70-99) mg/dL Lactic Acid (0.4-2.0) mmol/L Calcium (8.5-10.1) mg/dL Magnesium (1.8-2.4) mg/dL Total Bilirubin (0.2-1.0) mg/dL AST (15-37) U/L ALT (12-78) U/L Alkaline Phosphatase (46-116) IU/L Troponin I High Sens 6 (<=76) ng/L NT-Pro-B Natriuret Pep (0-125) pg/mL Total Protein (6.4-8.2) g/dL Albumin (3.4-5.0) g/dL Specimen Type Urine Color Urine Appearance Urine pH (5.0-9.0) Ur Specific [place] (1.005-1.030) Urine Protein (NEGATIVE) mg/dL Urine Glucose (UA) (NEGATIVE) mg/dL Urine Ketones (NEGATIVE) mg/dL Urine Occult Blood (NEGATIVE) Urine Nitrite (NEGATIVE) Urine Bilirubin (NEGATIVE) Urine Urobilinogen (0.2-1.0) E.U./dL Ur Leukocyte Esterase (NEGATIVE) Urine RBC /HPF Urine WBC /HPF Ur Epithelial Cells /LPF Urine Bacteria (NONE TO FEW) /HPF SARS-CoV-2 RNA ([place]) Negative (NEGATIVE) Meds: Medications Generic Name Dose Route Start Last Admin Trade Name Freq PRN Reason Stop Dose Admin Sodium Chloride 10 ml 06/20/21 14:29 Sodium Chloride 0.9% 10 Ml Syringe FLUSH 06/20/21 23:00 ONETIME PRN Keep Vein Open Discontinued Medications Generic Name Dose Route Start Last Admin Trade Name Freq PRN Reason Stop Dose Admin Iopamidol 100 ml 06/20/21 14:29 06/20/21 15:05 Iopamidol 755 Mg/Ml 100 Ml Bottle IVPUSH 06/20/21 14:30 100 ml ONETIME ONE Administration Oxycodone HCl 10 mg 06/20/21 14:08 06/20/21 14:28 Oxycodone 5 Mg Tab PO 06/20/21 14:09 10 mg ONETIME ONE Administration - Re-Assessments/Exams Free Text/Narrative Re-Assessment/Exam: 06/20/21 14:33 Chest xray performed. Appears that pleural effusion that was suspected on previous film is more prominent. DDimer mildly elevated. PE scan ordered. Hgb much improved compared to last visit. ProBNP 1101 Cr 1.28 ABG requested. Patient noted to desat to upper 70s with up/moving. 06/20/21 16:53 CT confirmed small left sided pleural effusion in addition to some atelectasis. No obvious pneumonia identified. Patient unable to hold breath therefor motion artifact limited ability to evaluate for PE. No large embolus noted. Patient does have ascites surrounding liver/spleen. Call placed to [facility] once CT results available. Reviewed patient with . Arrangement made to transfer patient to [place] once he receives clear [place] virus screen. They will continue evaluation and treatment of patient's hypoxemia/CHF/ascites/effusion. Departure - Departure Time of Disposition: 18:18 Disposition: DC/Tfer to Acute Hospital 02 Condition: Fair Clinical Impression: Hypoxemia, CHF, Congestive heart failure, Pleural effusion, left Ascites Qualifiers: Ascites type: other type Qualified Code(s): R18.8 - Other ascites - Discharge Information *PRESCRIPTION DRUG MONITORING PROGRAM REVIEWED*: Not Applicable *COPY OF PRESCRIPTION DRUG MONITORING REPORT IN PATIENT MARIO: Not Applicable Referrals: Liliya Brennan MD [Primary Care Provider] - Forms: ED Department Discharge Sepsis Event Note (ED) - Evaluation Sepsis Screening Result: No Definite Risk - Focused Exam Vital Signs: Vital Signs Temp Pulse Resp BP Pulse Ox Pulse Ox 06/20/21 17:32 36.3 C 66 16 123/78 99 06/20/21 17:09 98 06/20/21 16:25 68 20 101/71 96 06/20/21 14:30 105/68 06/20/21 13:13 93 L 06/20/21 13:00 36.4 C 71 24 H 114/77 88 L - My Orders Last 24 Hours: My Active Orders 06/20/21 13:13 Oxygen Therapy, ED [RC] ASDIRECTED 06/20/21 13:14 Chest 2V [CR] Stat 06/20/21 14:12 PE Chest [Ang Chest] [CT] Stat 06/20/21 14:29 Sodium Chloride 0.9% [Saline Flush] 10 ml FLUSH ONETIME PRN 06/20/21 14:33 EKG 12 Lead [EK] Routine - Assessment/Plan Last 24 Hours: My Active Orders 06/20/21 13:13 Oxygen Therapy, ED [RC] ASDIRECTED 06/20/21 13:14 Chest 2V [CR] Stat 06/20/21 14:12 PE Chest [Ang Chest] [CT] Stat 06/20/21 14:29 Sodium Chloride 0.9% [Saline Flush] 10 ml FLUSH ONETIME PRN 06/20/21 14:33 EKG 12 Lead [EK] Routine
[2021-06-20] MEDS ORDERED: Sodium Chloride 0.9% 10 ML Syringe FLUSH PRN (14:29)
[2021-06-20] MEDS ORDERED: Iopamidol 755 Mg/ML 100 ML Bottle IVPUSH ONE (14:29)
[2021-06-20 15:08] LABS: O2 DELIVERY DEVICE ROOM AIR; O2 SATURATION VENOUS 37 %; PCO2 VENOUS 66 mmHG (41-51); PH,VENOUS 7.32 (7.31-7.41); PO2 VENOUS 25 mmHG
[2021-06-20 15:09] LABS: BASE EXCESS VENOUS 6 mmol/L ((-2)-3); BICARBONATE,VENOUS 34 mmol/L (23-28)
[2021-06-20 17:33] VITALS: BP 123/78; PULSE 66
== END 2021-06-20 18:30 ==
LOC: LL.ED 13:00
DX: J90 Pleural effusion, not elsewhere classified (principal); I11.0 Hypertensive heart disease with heart failure; I50.9 Heart failure, unspecified; R18.8 Other ascites; E78.00 Pure hypercholesterolemia, unspecified; I25.2 Old myocardial infarction; K21.9 Gastro-esophageal reflux disease without esophagitis; E11.9 Type 2 diabetes mellitus without complications; E66.9 Obesity, unspecified; Z68.30 Body mass index [BMI] 30.0-30.9, adult; Z88.0 Allergy status to penicillin; Z88.8 Allergy status to other drugs, medicaments and biological substances; Z88.5 Allergy status to narcotic agent; Z20.822 Contact with and (suspected) exposure to COVID-19
CPT/HCPCS: 36415; 71046; 71275; 80053; 81001; 82803; 83605; 83735; 83880; 84484; 85025; 85379; 93005; 99285; A9270; Q9967; U0002; 99284

== ENCOUNTER 2021-07-01 10:43 | Inpatient (IN) | payer MEDICARE, BC ==
[2021-07-03] MEDS ORDERED: Polyvinyl Alcohol 1.4% Ophth Soln 15 ML Bottle EYEBOTH PRN (16:32)
[2021-07-03] MEDS ORDERED: Lidocaine 4% 1 each Patch TOP PRN (16:38)
[2021-07-03] MEDS ORDERED: Lactulose Soln 10 GM/15 ML 30 ML UD Cup PO PRN (16:38)
[2021-07-03] MEDS ORDERED: Loperamide 2 MG Tab PO SCH (16:45)
--- NOTE | 2021-07-03 16:56 | PCM.HP.2 ---
H&P History of Present Illness - General Date of Service: 07/03/21 Admit Problem/Dx: 66-year-old male with a history of type 2 diabetes, peripheral neuropathy, obesity, BPH, alcohol use disorder who was transferred to [facility] in [place] on 06-20-21. He had significant abdominal distention and bilateral lower extremity pitting edema. He had multiple paracentesis due to decompensated liver failure with a total of 20 L of fluid removed. Last paracentesis was on 07/01/2021. While in the hospital he developed a fever and hypotension. He was found to have positive UA and blood cultures growing Aerococcus and Staph epidermidis. CALVIN did not show any valvular vegetations. He was placed on cefazolin with a PICC line. Prolonged treatment 2 to 3 weeks in the hospital. There is no concerns for SBP. CALVIN showed left ventricular ejection fraction of 65%. Intermediate diastolic function. Sepsis resolved. Acute kidney injury resolved. Started on Lasix and spironolactone. He was on lactulose for hepatic encephalopathy prophylaxis. He will need periodic assessment of ascites and therapeutic paracentesis as needed. Weekly CBC, CMP, CRP. While receiving cefazolin. Today the patient does not offer much complaints. He really complains primarily of increasing pain to his feet. He was on a higher dose of gabapentin when he was at home. He has been using his oxycodone every 4 hours [id number]. He does complain of generalized weakness and deconditioning. Otherwise he off ers up no additional complaints today. Source of Information: Patient, Old Records History Limitations: Reports: No Limitations Generalized Pain Score (Numeric/FACES): 8 - Related Data Allergies/Adverse Reactions: Allergies Allergy/AdvReac Type Severity Reaction Status Date / Time duloxetine [From Cymbalta] Allergy Burning Verified 06/20/21 13:25 Penicillins Allergy Swelling Verified 06/20/21 13:25 temazepam [From Restoril] Allergy confusion, Verified 06/20/21 13:25 agitation Home Medications: Home Meds Multivitamin [Daily Multiple Vitamin] 1 tab PO DAILY 08/06/16 [History] Wayland-3S/DHA/Epa/Fish Oil [Wayland-3 Fish Oil 1,000 mg Sfgl] 1,000 mg PO BID 01/10/20 [History] Omeprazole 40 mg PO BIDMEALS 01/10/20 [History] Pramipexole [Mirapex] 0.25 mg PO DAILY 01/10/20 [History] hydrOXYzine HCL [Hydroxyzine HCl] 25 mg PO Q6HR PRN 01/10/20 [History] Loperamide HCl [Imodium A-D] 2 mg PO ASDIRECTED 10/29/20 [History] Fluticasone Propionate [Flonase] 1 spray NASBOTH BID PRN 10/30/20 [History] Aspirin [Halfprin] 81 mg PO DAILY 11/02/20 [History] Carboxymethylcellulose Sodium [Artificial Tears] 1 drop EYEBOTH Q4HR PRN 11/02/20 [History] Cyanocobalamin (Vitamin B-12) [Vitamin B-12] 250 mcg PO DAILY 11/02/20 [History] Iron Polysaccharide Complex [Poly-Iron] 150 mg PO ASDIRECTED 11/02/20 [History] Magnesium 500 mg BID 11/02/20 [History] Ondansetron [Zofran ODT] 4 mg PO Q6H PRN 11/02/20 [History] Tamsulosin [Flomax] 0.4 mg PO DAILY 11/02/20 [History] atorvaSTATin Calcium [Lipitor] 40 mg PO BEDTIME 11/02/20 [History] Acetaminophen [Acetaminophen 8 Hour] 325 mg PO Q6HR PRN 05/29/21 [History] Pramipexole [Mirapex] 0.5 mg PO QPM 05/29/21 [History] traZODone 0.5 tab PO BEDTIME PRN 05/29/21 [History] Furosemide 60 mg PO DAILY 07/03/21 [History] Gabapentin [Neurontin] 100 mg PO TID 07/03/21 [History] Heparin Sodium,Porcine/PF [Heparin Lock Flush 100 Unit/ml] 300 unit IV Q8HR 07/03/21 [History] Lactulose 30 ml PO BID PRN 07/03/21 [History] Lactulose [Cephulac] 15 ml PO TID 07/03/21 [History] Lidocaine [Salonpas] 1 each TP QID PRN 07/03/21 [History] Sodium Chloride 0.9% [Saline Flush Sterile Syringe] 10 ml FLUSH Q8HR 07/03/21 [History] Spironolactone 150 mg PO DAILY 07/03/21 [History] ceFAZolin [Ancef in NS 2 GM/100 ML] 2 gm IV Q8HR 07/03/21 [History] metFORMIN [Glucophage XR] 1,500 mg PO BIDMEALS 07/03/21 [History] oxyCODONE 5 mg PO Q4HR PRN 07/03/21 [History] Past Medical History HEENT History: Reports: Impaired Vision, Sinusitis, Other (See Below) Other HEENT History: Patient wears reading glasses. No diabetic retinopathy. Chronic bilateral tinnitus. Cardiovascular History: Reports: Arrhythmia, CAD, Cardiomyopathy, Heart Failure, High Cholesterol, Hypertension, VA, Syncope, Other (See Below) Other Cardiovascular History: First-degree AV block. Non-STEMI on 08/07/2016 with no procedures performed, including angiogram, etc.. Dyslipidemia. Recurrent syncopal episodes in 2015 possibly secondary to his heart disease as above. Ejection fracture 50-55% on echo 10/30/20 Respiratory History: Reports: Bronchitis, Recurrent, Intubation, Previous, Sleep Apnea, SOB, Other (See Below) Other Respiratory History: Patient does not use CPAP. Gastrointestinal History: Reports: Cholelithiasis, Colon Polyp, Diverticulosis, GERD, Other (See Below) Other Gastrointestinal History: Chronic ascites. Necrotic cholelithiasis with borderline sepsis in January 2020. Recurrent multiple colonic polypsbenign?. Benign hepatic cysts by CT scan. Genitourinary History: Reports: BPH, Chronic Renal Insuffiency, Diabetic Nephropathy, Prostate Disorder, Urinary Incontinence Musculoskeletal History: Reports: Arthritis, Back Pain, Chronic, Neck Pain, Chronic, Osteoarthritis Neurological History: Reports: Neuropathy, Diabetic, Neuropathy, Peripheral, Other (See Below) Other Neuro History: Benign resting tremor. Psychiatric History: Reports: Addiction, Anxiety, Depression, Other (See Below) Other Psychiatric History: Chronic narcotic use secondary to chronic pain syndrome and neuropathy. Endocrine/Metabolic History: Reports: Diabetes, Type II, Obesity/BMI 30+, Other (See Below) Other Endocrine/Metabolic History: Morbid obesity. Hypocalcemia. Hyponatremia. Immunologic History: Reports: None Oncologic (Cancer) History: Reports: None Dermatologic History: Reports: Other (See Below) Other Dermatologic History: Dry skin - Infectious Disease History Infectious Disease History: Reports: Chicken Pox, Measles, Mumps - Past Surgical History Head Surgeries/Procedures: Reports: None HEENT Surgical History: Reports: Adenoidectomy, Oral Surgery, Tonsillectomy, Other (See Below) Other HEENT Surgeries/Procedures: [place] teeth extraction x4. Additional teeth extractions. Tonsillectomy and adenoidectomy at age 4. Cardiovascular Surgical History: Reports: None Respiratory Surgical History: Reports: None GI Surgical History: Reports: Cholecystectomy, Colonoscopy, Polypectomy, Other (See Below) Other GI Surgeries/Procedures: Multiple polypectomies for benign disease with last colonoscopy in 2018. Male Surgical History: Reports: Circumcision, Other (See Below) Other Male Surgeries/Procedures: Circumcision as an . Bilateral hydrocele repair in about 2009. Endocrine Surgical History: Reports: None Neurological Surgical History: Reports: None Musculoskeletal Surgical History: Reports: Joint Replacement, Knee Replacement, Other (See Below) Other Musculoskeletal Surgeries/Procedures:: Bilateral TKA in 2014. Right thumb tendon repair in about 1979. Oncologic Surgical History: Reports: None Dermatological Surgical History: Reports: None - Past Imaging History Past Imaging History: Reports: CAT Scan (CT of the abdomen and pelvis on 01/10/2020 and 08/02/2014.). Denies: Angiography, Cardiac Echo Social & Family History - Family History HEENT: Reports: None Cardiac: Reports: Arrhythmia, Hypertension, Other (See Below) Other Cardiac Family History: Brother with hyperlipidemia. Brother with ventricular tachycardia on subsequent asystole? Respiratory: Reports: None GI: Reports: Colon Polyps, Other (See Below) Other GI Family History: Mother with colon cancer as below. : Reports: None OBGYN: Reports: None Musculoskeletal: Reports: None Neurological: Reports: CVA, Parkinson's, Other (See Below) Other Neurological Family History: Father with Parkinson's disease. Brother with recurrent CVA. Endocrine/Metabolic: Reports: None Hematologic: Reports: None Immunologic: Reports: None Dermatologic: Reports: None Oncologic: Reports: Colon, Lymphoma, Ovarian, Skin, Uterine, Other (See Below) Other Oncologic Family History: Sister with fatal lymphoma in her 60s. Another sister with unknown type of skin cancer and breast cancer. Mother with multiple cancers including breast cancer, ovarian cancer and colon cancer x2 with fatal colon surgery. - Tobacco Use Tobacco Use Status *Q: Never Tobacco User Second Hand Smoke Exposure: No - Caffeine Use Caffeine Use: Reports: Tea - Recreational Drug Use Recreational Drug Use: No - Living Situation & Occupation Living situation: Reports: (1982, 2 children), with Family () Occupation: Disabled (Disabled secondary to his chronic neuropathy, osteoarthritis, chronic pain syndrome. Retired [employer].) H&P Review of Systems - Review of Systems: Review Of Systems: See Below General: Reports: No Symptoms HEENT: Reports: No Symptoms Pulmonary: Reports: No Symptoms Cardiovascular: Reports: No Symptoms Gastrointestinal: Reports: Diarrhea Genitourinary: Reports: No Symptoms Musculoskeletal: Reports: Foot Pain Skin: Reports: No Symptoms Psychiatric: Reports: No Symptoms Neurological: Reports: No Symptoms Hematologic/Lymphatic: Reports: No Symptoms Immunologic: Reports: No Symptoms Exam - Exam Exam: See Below - Vital Signs Vital Signs: Last Vital Signs Temp 98.4 F 07/03/21 15:35 Pulse 73 07/03/21 15:35 Resp 20 07/03/21 15:35 BP 148/95 H 07/03/21 15:35 Pulse Ox 93 L 07/03/21 15:35 Weight: 298 lb - Exam Quality Assessment: No: DVT Prophylaxis General: Alert, Oriented HEENT: Conjunctiva Clear, EOMI, Hearing Intact, Pupils Equal, Pupils Reactive Neck: Supple Lungs: Clear to Auscultation, Normal Respiratory Effort Cardiovascular: Regular Rate, Regular Rhythm GI/Abdominal Exam: Normal Bowel Sounds, Soft, Non-Tender, Other (Positive minimal peristaltic waves to his abdomen.) (Male) Exam: Circumcised, Penile Lesions (On the 12 o'clock position on the mid shaft there is a hard crusted scab that is not erythematous or draining. No swelling of the penis. No discharge.). No: Rash, Scrotal Swelling Rectal (Males) Exam: Deferred Back Exam: Normal Inspection, Full Range of Motion Extremities: Normal Inspection, Normal Range of Motion, Non-Tender, No Pedal Edema, Normal Capillary Refill Peripheral Pulses: 2+: Radial (L), Radial (R), Posterior Tibial (L), Posterior Tibial (R), Dorsalis Pedis (L), Dorsalis Pedis (R) Skin: Warm, Dry, Intact Neurological: Cranial Nerves Intact, Reflexes Equal Bilateral Neuro Extensive - Mental Status: Alert, Oriented x3, Normal Mood/Affect, Normal Cognition, Memory Intact Neuro Extensive - Motor, Sensory, Reflexes: CN II-XII Intact, Normal Reflexes Psychiatric: Alert, Normal Affect, Normal Mood - Patient Data Result Diagrams: 07/04/21 07:10 07/04/21 07:10 Sepsis Event Note - Focused Exam Vital Signs: Vital Signs Temp Pulse Resp BP Pulse Ox 07/03/21 15:35 98.4 F 73 20 148/95 H 93 L Problem List Initiated/Reviewed/Updated: Yes Orders Last 24hrs: Active Orders 24 hr Category Date Time Status 2 Gram Sodium Diet [DIET] Diet 07/03/21 Dinner Active AMMONIA VENOUS [CHEM] Q7D Lab 07/04/21 16:48 Ordered AMMONIA VENOUS [CHEM] Q7D Lab 07/11/21 16:48 Ordered AMMONIA VENOUS [CHEM] Q7D Lab 07/18/21 16:48 Ordered AMMONIA VENOUS [CHEM] Q7D Lab 07/25/21 16:48 Ordered AMMONIA VENOUS [CHEM] Q7D Lab 08/01/21 16:48 Ordered C-REACTIVE PROTEIN [CHEM] Q7D Lab 07/04/21 16:46 Ordered C-REACTIVE PROTEIN [CHEM] Q7D Lab 07/11/21 16:46 Ordered C-REACTIVE PROTEIN [CHEM] Q7D Lab 07/18/21 16:46 Ordered C-REACTIVE PROTEIN [CHEM] Q7D Lab 07/25/21 16:46 Ordered C-REACTIVE PROTEIN [CHEM] Q7D Lab 08/01/21 16:46 Ordered CBC WITH AUTO DIFF [HEME] Q7D Lab 07/04/21 06:00 Ordered CBC WITH AUTO DIFF [HEME] Q7D Lab 07/11/21 06:00 Ordered CBC WITH AUTO DIFF [HEME] Q7D Lab 07/18/21 06:00 Ordered CBC WITH AUTO DIFF [HEME] Q7D Lab 07/25/21 06:00 Ordered CBC WITH AUTO DIFF [HEME] Q7D Lab 08/01/21 06:00 Ordered COMPREHENSIVE METABOLIC PN,CMP [CHEM] Q7D Lab 07/04/21 06:00 Ordered COMPREHENSIVE METABOLIC PN,CMP [CHEM] Q7D Lab 07/11/21 06:00 Ordered COMPREHENSIVE METABOLIC PN,CMP [CHEM] Q7D Lab 07/18/21 06:00 Ordered COMPREHENSIVE METABOLIC PN,CMP [CHEM] Q7D Lab 07/25/21 06:00 Ordered COMPREHENSIVE METABOLIC PN,CMP [CHEM] Q7D Lab 08/01/21 06:00 Ordered Acetaminophen [Tylenol Arthritis Pain] Med 07/03/21 16:32 Ordered 325 mg PO Q6HR PRN Aspirin [Halfprin] Med 07/04/21 08:00 Ordered 81 mg PO DAILY Carboxymethylcellulose Sodium [Artificial Tears] Med 07/03/21 16:32 Ordered 1 drop EYEBOTH Q4HR PRN Cyanocobalamin (Vitamin B12) [Vitamin B12] Med 07/04/21 08:00 Ordered 250 mcg PO DAILY Fluticasone Propionate [Flonase] Med 07/03/21 16:32 Ordered 1 spray NASBOTH BID PRN Furosemide [Lasix] Med 07/04/21 08:00 Ordered 60 mg PO DAILY Gabapentin [Neurontin] Med 07/03/21 18:00 Ordered 100 mg PO TID Heparin Sodium,Porcine/PF [Heparin Lock Flush 100 Unit/ Med 07/04/21 00:00 Ordered ml] 300 unit IV Q8HR Iron Polysaccharides Complex [Ferrex 150] Med 07/03/21 16:45 Ordered 150 mg PO ASDIRECTED Lactulose Med 07/03/21 18:00 Ordered 15 ml PO TID Lactulose [Lactulose] Med 07/03/21 16:38 Ordered 30 ml PO BID PRN Lidocaine 4% [Aspercreme 4%] Med 07/03/21 16:38 Ordered 1 each TOP QID PRN Loperamide [Imodium AD] Med 07/03/21 16:45 Ordered 2 mg PO ASDIRECTED Magnesium [Magnesium] Med 07/03/21 18:00 Ordered 500 mg PO BID Multivitamin [Daily Multiple Vitamin] Med 07/04/21 08:00 Ordered 1 tab PO DAILY [place]-3S/DHA/Epa/Fish Oil [[place]-3 Fish Oil 1,000 mg Med 07/03/21 18:00 Ordered Sfgl] 1,000 mg PO BID Omeprazole [Omeprazole] Med 07/03/21 17:30 Ordered 40 mg PO BIDMEALS Ondansetron [Zofran ODT] Med 07/03/21 16:38 Ordered 4 mg PO Q6H PRN Pramipexole Med 07/04/21 08:00 Ordered 0.25 mg PO DAILY Pramipexole Med 07/03/21 18:00 Ordered 0.5 mg PO QPM Sodium Chloride 0.9% Med 07/04/21 00:00 Ordered 10 ml FLUSH Q8HR Spironolactone [Spironolactone] Med 07/04/21 08:00 Ordered 150 mg PO DAILY Tamsulosin [Flomax] Med 07/04/21 08:00 Ordered 0.4 mg PO DAILY atorvaSTATin [Lipitor] Med 07/03/21 20:00 Ordered 40 mg PO BEDTIME ceFAZolin [Ancef in NS 2 GM/100 ML] Med 07/04/21 00:00 Ordered 2 gm IV Q8HR hydrOXYzine HCL [Atarax] Med 07/03/21 16:32 Ordered 25 mg PO Q6HR PRN metFORMIN [Glucophage XR] Med 07/03/21 17:30 Ordered 1,500 mg PO BIDMEALS oxyCODONE Med 07/03/21 16:38 Ordered 5 mg PO Q4HR PRN traZODone Med 07/03/21 16:38 Ordered 25 mg PO BEDTIME PRN Medication Orders Acetaminophen (Acetaminophen 650 Mg Tab.Er) 325 mg PO Q6HR PRN PRN Reason: Pain Aspirin (Aspirin 81 Mg Tab.Ec) 81 mg PO DAILY [facility] Atorvastatin Calcium (Atorvastatin 40 Mg Tab) 40 mg PO BEDTIME [facility] Cyanocobalamin (Cyanocobalamin (Vitamin B12) 250 Mcg Tab) 250 mcg PO DAILY [facility] Fluticasone Propionate (Fluticasone Propionate Nasal [place] 16 Gm Bottle) gm NASBOTH BID PRN PRN Reason: Allergies Furosemide (Furosemide 20 Mg Tab) 60 mg PO DAILY [facility] Gabapentin (Gabapentin 100 Mg Cap) 100 mg PO TID [facility] Hydroxyzine HCl (Hydroxyzine Hcl 25 Mg Tab) 25 mg PO Q6HR PRN PRN Reason: Nausea Lidocaine (Lidocaine 4% 1 Each Patch) 1 each TOP QID PRN PRN Reason: Pain Loperamide HCl (Loperamide 2 Mg Tab) 2 mg PO ASDIRECTED [facility] Non-Formulary Medication (Carboxymethylcellulose Sodium [Artificial Tears]) 1 drop EYEBOTH Q4HR PRN PRN Reason: Dry Eyes Non-Formulary Medication (Cefazolin [Ancef In Ns 2 Gm/100 Ml]) 2 gm IV Q8HR [facility] Non-Formulary Medication (Heparin Sodium,Porcine/Pf [Heparin Lock Flush 100 Unit/Ml]) 300 unit IV Q8HR [facility] Non-Formulary Medication (Lactulose) 15 ml PO TID [facility] Non-Formulary Medication (Lactulose [Lactulose]) 30 ml PO BID PRN PRN Reason: Other Non-Formulary Medication (Spironolactone [Spironolactone]) 150 mg PO DAILY [facility] Non-Formulary Medication (Sodium Chloride 0.9%) 10 ml FLUSH Q8HR [facility] Non-Formulary Medication (Pramipexole) 0.5 mg PO QPM [facility] Non-Formulary Medication (Pramipexole) 0.25 mg PO DAILY [facility] Non-Formulary Medication (Omeprazole [Omeprazole]) 40 mg PO BIDMEALS [facility] Non-Formulary Medication (Wayland-3s/Dha/Epa/Fish Oil [[place]-3 Fish Oil 1,000 Mg Sfgl]) 1,000 mg PO BID [facility] Non-Formulary Medication (Multivitamin [Daily Multiple Vitamin]) 1 tab PO DAILY [facility] Non-Formulary Medication (Metformin [Glucophage Xr]) 1,500 mg PO BIDMEALS [facility] Non-Formulary Medication (Magnesium [Magnesium]) 500 mg PO BID [facility] Ondansetron HCl (Ondansetron 4 Mg Tab.Dis) 4 mg PO Q6H PRN PRN Reason: Nausea/Vomiting Oxycodone HCl (Oxycodone 5 Mg Tab) 5 mg PO Q4HR PRN PRN Reason: Pain Polysaccharide Iron Complex (Iron Polysaccharides Complex 150 Mg Cap) 150 mg PO ASDIRECTED [facility] Tamsulosin HCl (Tamsulosin 0.4 Mg Cap.Er) 0.4 mg PO DAILY [facility] Trazodone HCl (Trazodone 50 Mg Tab) 25 mg PO BEDTIME PRN PRN Reason: Insomnia Assessment/Plan Comment:: Admit with above diagnosis. CBC CMP CRP and ammonia every week. Monitoring while the patient is receiving Lasix and spironolactone and lactulose. Continue medications as previously determined by [facility] from discharge. PT OT. Hepatology follow-up after discharge from swing bed. Infectious disease follow-up in 2 to 3 weeks. Periodic assessment of ascites and therapeutic paracentesis as needed. To be completed by Naldo Drummond DNP/[employer] or Dr. Brennan. Plan for discharge home. Case management for following Aerococcus bacteremia with likely urinary source. Following by ID at [facility] in [place]. Recheck in 2 to 3 weeks. Cefazolin 2000 mg intravenously every 8 hours for 24 days. Staph epidermidis bacteremia Sensitive to oxacillin covered by cefazolin as above. Decompensated liver cirrhosis likely related to chronic alcohol use in [place] Lactulose 15 mg p.o. 3 times a day. Therapeutic paracentesis as needed by either Dr Brennan or Priscila Drummond DNP/[employer] Spironolactone 150 mg daily Lasix 60 mg daily. Hydroxyzine 1 tablet by mouth every 6 hours as needed for itching and nausea Ammonia 146 on 07/03/21 Patient is somewhat resistant to the lactulose due to the side effects of diarrhea. Although I feel that it is quite important that he gets his with his elevated ammonia. I will add weekly ammonias. Resolved acute kidney injury. Weekly labs evaluation. Type 2 diabetes Metformin 500 mg 3 times daily Peripheral neuropathy. Oxycodone 5 mg by mouth every 4 hours as needed for pain. I will increase his gabapentin to 300 mg 3 times daily. He was on the 100 mg 3 times daily upon arrival. BPH History of alcohol use disorder. Anemia Appears to be in the fashion of iron deficiency anemia. Continue iron supplementation. Lesion on mid shaft of penis. Scab. Wound care aquafor tid. Most consistent labs on 07/03/2021 CBC, WBC 7.5, hemoglobin 9.9, platelets 208. Ammonia 146 Glucose 100, BUN 8, creatinine 0.94, sodium 137, potassium 3.5, chloride 100, CO2 28, calcium 8.2, phosphorus 3.8, albumin 3.1, GFR 80 Alk phos 117, AST 26, ALT 6, T bili 0.3 Magnesium 1.4 INR 1.1, pro time 13.2 - Mortality Measure Prognosis:: Good
[2021-07-03] MEDS ORDERED: Gabapentin 100 MG Cap PO SCH (18:00)
[2021-07-03] MEDS: hydrOXYzine HCl 25 MG Tab PO PRN (18:07)
[2021-07-03] MEDS: Pramipexole 0.5 MG Tab PO SCH (18:07)
[2021-07-03] MEDS: oxyCODONE 5 MG Tab PO PRN ×2 (18:07→23:00)
[2021-07-03] MEDS: ceFAZolin 2 GM in Premix Bag 1 BAG IV SCH (18:08)
[2021-07-03] MEDS: Lactulose Soln 10 GM/15 ML 30 ML UD Cup PO SCH (18:09)
[2021-07-03] MEDS: Sodium Chloride 0.9% 10 ML Syringe IV SCH ×2 (18:10→18:20)
[2021-07-03] MEDS: Fish Oil/Omega-3 Fatty Acids 1 Gm Cap PO SCH (18:15)
[2021-07-03] MEDS: Omeprazole 20 MG Cap.CR PO SCH (18:15)
[2021-07-03] MEDS: Magnesium Oxide 400 MG Tab PO SCH (18:15)
[2021-07-03] MEDS: atorvaSTATin 40 MG Tab PO SCH (20:11)
[2021-07-03] MEDS: metFORMIN 500 MG Tab PO SCH (20:11)
[2021-07-03] MEDS: traZODone 50 MG Tab PO PRN (22:59)
[2021-07-04] MEDS ORDERED: [UNRECOGNIZED DRUG - OTHER] IV SCH
[2021-07-04] MEDS ORDERED: CEFAZOLIN 2 GM/100 ML IV SCH
[2021-07-04] MEDS: Sodium Chloride 0.9% 10 ML Syringe IV SCH ×6 (02:16→17:41)
[2021-07-04] MEDS: ceFAZolin 2 GM in Premix Bag 1 BAG IV SCH ×3 (02:16→17:39)
[2021-07-04] MEDS: oxyCODONE 5 MG Tab PO PRN ×4 (03:47→20:06)
[2021-07-04] MEDS: hydrOXYzine HCl 25 MG Tab PO PRN ×3 (03:47→20:06)
[2021-07-04] MEDS: Lidocaine 4% 1 each Patch TOP SCH ×2 (07:34→07:35)
[2021-07-04] MEDS: Spironolactone 25 MG Tab PO SCH (07:35)
[2021-07-04] MEDS: Pramipexole 0.125 MG Tab PO SCH (07:35)
[2021-07-04] MEDS: Lactulose Soln 10 GM/15 ML 30 ML UD Cup PO SCH ×3 (07:35→15:53)
[2021-07-04] MEDS: metFORMIN 500 MG Tab PO SCH ×3 (07:35→17:39)
[2021-07-04] MEDS: Tamsulosin 0.4 MG Cap.ER PO SCH (07:35)
[2021-07-04] MEDS: Aspirin 81 MG Tab.EC PO SCH (07:36)
[2021-07-04] MEDS: Fish Oil/Omega-3 Fatty Acids 1 Gm Cap PO SCH ×2 (07:36→17:39)
[2021-07-04] MEDS: Omeprazole 20 MG Cap.CR PO SCH ×2 (07:36→17:39)
[2021-07-04] MEDS: Magnesium Oxide 400 MG Tab PO SCH ×2 (07:36→17:39)
[2021-07-04] MEDS: Multivitamin Tab PO SCH (07:36)
[2021-07-04] MEDS: Furosemide 20 MG Tab PO SCH (07:36)
[2021-07-04] MEDS: Gabapentin 300 MG Cap PO SCH ×3 (07:36→17:39)
[2021-07-04 07:45] LABS: CHLORIDE,CL 104 mmol/L (98-107); SODIUM,NA 141 mmol/L (136-145)
[2021-07-04 07:47] LABS: ANION GAP 10.7 meq/L (7-15)
[2021-07-04] MEDS: Cyanocobalamin (Vitamin B12) 250 MCG Tab PO SCH (07:55)
[2021-07-04] MEDS: Ondansetron 4 MG Tab.DIS PO PRN (08:54)
[2021-07-04] MEDS: Acetaminophen 650 MG Tab.ER PO PRN ×2 (09:03→23:04)
[2021-07-04] MEDS: Pramipexole 0.5 MG Tab PO SCH (17:39)
[2021-07-04] MEDS: REMOVE TRDERM SCH ×2 (20:06→20:07)
[2021-07-04] MEDS: atorvaSTATin 40 MG Tab PO SCH (20:06)
[2021-07-04] MEDS: traZODone 50 MG Tab PO PRN (22:56)
[2021-07-05] MEDS: oxyCODONE 5 MG Tab PO PRN ×4 (00:07→19:41)
[2021-07-05] MEDS: Sodium Chloride 0.9% 10 ML Syringe IV SCH ×4 (02:39→10:28)
[2021-07-05] MEDS: ceFAZolin 2 GM in Premix Bag 1 BAG IV SCH ×3 (02:40→18:07)
[2021-07-05] MEDS: Omeprazole 20 MG Cap.CR PO SCH ×2 (08:10→18:04)
[2021-07-05] MEDS: Spironolactone 25 MG Tab PO SCH (08:10)
[2021-07-05] MEDS: Lactulose Soln 10 GM/15 ML 30 ML UD Cup PO SCH ×4 (08:11→16:25)
[2021-07-05] MEDS: Lidocaine 4% 1 each Patch TOP SCH ×2 (08:11)
[2021-07-05] MEDS: Pramipexole 0.125 MG Tab PO SCH (08:12)
[2021-07-05] MEDS: Tamsulosin 0.4 MG Cap.ER PO SCH (08:12)
[2021-07-05] MEDS: Fish Oil/Omega-3 Fatty Acids 1 Gm Cap PO SCH ×2 (08:12→18:04)
[2021-07-05] MEDS: metFORMIN 500 MG Tab PO SCH ×3 (08:12→18:05)
[2021-07-05] MEDS: Furosemide 20 MG Tab PO SCH (08:13)
[2021-07-05] MEDS: Multivitamin Tab PO SCH (08:13)
[2021-07-05] MEDS: Magnesium Oxide 400 MG Tab PO SCH ×2 (08:13→18:05)
[2021-07-05] MEDS: Aspirin 81 MG Tab.EC PO SCH (08:13)
[2021-07-05] MEDS: Gabapentin 300 MG Cap PO SCH ×3 (08:13→18:06)
[2021-07-05] MEDS: Cyanocobalamin (Vitamin B12) 250 MCG Tab PO SCH (08:13)
[2021-07-05] MEDS: hydrOXYzine HCl 25 MG Tab PO PRN (08:17)
[2021-07-05] MEDS: Potassium Chloride 20 MEQ Tab.ER PO SCH (11:52)
[2021-07-05] MEDS: Sodium Chloride 0.9% 10 ML Syringe FLUSH SCH ×2 (18:05→18:07)
[2021-07-05] MEDS: Pramipexole 0.5 MG Tab PO SCH (18:05)
[2021-07-05] MEDS ORDERED: Simethicone 80 MG Tab.Chew PO ONE (18:09)
[2021-07-05] MEDS: atorvaSTATin 40 MG Tab PO SCH (19:38)
[2021-07-05] MEDS: Nystatin Topical Powder 15 GM Bottle TOP SCH (19:39)
[2021-07-05] MEDS: REMOVE TRDERM SCH ×2 (19:40)
[2021-07-06] MEDS: oxyCODONE 5 MG Tab PO PRN ×5 (00:23→18:32)
[2021-07-06] MEDS: traZODone 50 MG Tab PO PRN (00:23)
[2021-07-06] MEDS: ceFAZolin 2 GM in Premix Bag 1 BAG IV SCH ×3 (02:22→17:44)
[2021-07-06] MEDS: Sodium Chloride 0.9% 10 ML Syringe FLUSH SCH ×6 (02:23→17:45)
[2021-07-06] MEDS: hydrOXYzine HCl 25 MG Tab PO PRN (06:32)
[2021-07-06] MEDS: Cyanocobalamin (Vitamin B12) 250 MCG Tab PO SCH (08:27)
[2021-07-06] MEDS: Furosemide 20 MG Tab PO SCH (08:27)
[2021-07-06] MEDS: Lactulose Soln 10 GM/15 ML 30 ML UD Cup PO SCH ×4 (08:28→16:43)
[2021-07-06] MEDS: Lidocaine 4% 1 each Patch TOP SCH ×2 (08:28)
[2021-07-06] MEDS: Pramipexole 0.125 MG Tab PO SCH (08:29)
[2021-07-06] MEDS: Spironolactone 25 MG Tab PO SCH (08:29)
[2021-07-06] MEDS: Fish Oil/Omega-3 Fatty Acids 1 Gm Cap PO SCH ×2 (08:29→17:45)
[2021-07-06] MEDS: Omeprazole 20 MG Cap.CR PO SCH ×2 (08:29→17:45)
[2021-07-06] MEDS: Aspirin 81 MG Tab.EC PO SCH (08:29)
[2021-07-06] MEDS: Potassium Chloride 20 MEQ Tab.ER PO SCH (08:30)
[2021-07-06] MEDS: Multivitamin Tab PO SCH (08:30)
[2021-07-06] MEDS: Gabapentin 300 MG Cap PO SCH ×3 (08:30→17:45)
[2021-07-06] MEDS: Magnesium Oxide 400 MG Tab PO SCH ×2 (08:30→17:45)
[2021-07-06] MEDS: metFORMIN 500 MG Tab PO SCH ×3 (08:30→17:45)
[2021-07-06] MEDS: Tamsulosin 0.4 MG Cap.ER PO SCH (08:30)
[2021-07-06] MEDS: Simethicone 80 MG Tab.Chew PO SCH ×3 (08:30→17:44)
[2021-07-06] MEDS: Nystatin Topical Powder 15 GM Bottle TOP SCH ×2 (08:31→19:53)
[2021-07-06 09:05] LABS: ANION GAP 8.8 meq/L (7-15); CHLORIDE,CL 105 mmol/L (98-107); SODIUM,NA 141 mmol/L (136-145)
[2021-07-06] MEDS: Acetaminophen 650 MG Tab.ER PO PRN ×2 (10:25→18:32)
[2021-07-06] MEDS: Ondansetron 4 MG Tab.DIS PO PRN (11:55)
[2021-07-06] MEDS: Pramipexole 0.5 MG Tab PO SCH (17:45)
[2021-07-06] MEDS: REMOVE TRDERM SCH ×2 (19:53→19:54)
[2021-07-06] MEDS: atorvaSTATin 40 MG Tab PO SCH (19:53)
[2021-07-07] MEDS: oxyCODONE 5 MG Tab PO PRN ×5 (00:41→22:04)
[2021-07-07] MEDS: ceFAZolin 2 GM in Premix Bag 1 BAG IV SCH ×3 (02:10→19:29)
[2021-07-07] MEDS: Sodium Chloride 0.9% 10 ML Syringe FLUSH SCH ×7 (02:11→19:32)
[2021-07-07] MEDS: Lactulose Soln 10 GM/15 ML 30 ML UD Cup PO SCH ×3 (07:41→15:58)
[2021-07-07] MEDS: Iron Polysaccharides Complex 150 MG Cap PO SCH (07:42)
[2021-07-07] MEDS: Furosemide 20 MG Tab PO SCH (07:42)
[2021-07-07] MEDS: Pramipexole 0.125 MG Tab PO SCH (07:42)
[2021-07-07] MEDS: Fish Oil/Omega-3 Fatty Acids 1 Gm Cap PO SCH ×2 (07:42→19:30)
[2021-07-07] MEDS: Magnesium Oxide 400 MG Tab PO SCH ×2 (07:42→19:31)
[2021-07-07] MEDS: Aspirin 81 MG Tab.EC PO SCH (07:42)
[2021-07-07] MEDS: hydrOXYzine HCl 25 MG Tab PO PRN ×2 (07:42→15:56)
[2021-07-07] MEDS: Spironolactone 25 MG Tab PO SCH (07:43)
[2021-07-07] MEDS: Simethicone 80 MG Tab.Chew PO SCH ×3 (07:43→19:29)
[2021-07-07] MEDS: Omeprazole 20 MG Cap.CR PO SCH ×2 (07:43→19:30)
[2021-07-07] MEDS: Acetaminophen 650 MG Tab.ER PO PRN ×2 (07:43→15:56)
[2021-07-07] MEDS: Potassium Chloride 20 MEQ Tab.ER PO SCH (07:44)
[2021-07-07] MEDS: metFORMIN 500 MG Tab PO SCH ×3 (07:44→19:31)
[2021-07-07] MEDS: Gabapentin 300 MG Cap PO SCH ×3 (07:44→19:30)
[2021-07-07] MEDS: Ondansetron 4 MG Tab.DIS PO PRN (07:44)
[2021-07-07] MEDS: Cyanocobalamin (Vitamin B12) 250 MCG Tab PO SCH (07:44)
[2021-07-07] MEDS: Tamsulosin 0.4 MG Cap.ER PO SCH (07:44)
[2021-07-07] MEDS: Multivitamin Tab PO SCH (07:44)
[2021-07-07] MEDS: Nystatin Topical Powder 15 GM Bottle TOP SCH ×2 (07:49→21:49)
[2021-07-07] MEDS: Lidocaine 4% 1 each Patch TOP SCH ×2 (07:50)
[2021-07-07] MEDS: atorvaSTATin 40 MG Tab PO SCH (19:27)
[2021-07-07] MEDS: Pramipexole 0.5 MG Tab PO SCH (19:31)
[2021-07-07] MEDS: REMOVE TRDERM SCH ×2 (21:50)
[2021-07-08] MEDS: ceFAZolin 2 GM in Premix Bag 1 BAG IV SCH ×3 (02:24→18:02)
[2021-07-08] MEDS: Sodium Chloride 0.9% 10 ML Syringe FLUSH SCH ×6 (02:25→18:05)
[2021-07-08] MEDS: hydrOXYzine HCl 25 MG Tab PO PRN ×3 (02:29→14:30)
[2021-07-08] MEDS: oxyCODONE 5 MG Tab PO PRN ×4 (02:29→18:03)
[2021-07-08] MEDS: Acetaminophen 650 MG Tab.ER PO PRN (02:29)
[2021-07-08] MEDS: Ondansetron 4 MG Tab.DIS PO PRN ×2 (06:24→12:15)
[2021-07-08] MEDS: metFORMIN 500 MG Tab PO SCH ×3 (08:12→18:03)
[2021-07-08] MEDS: Potassium Chloride 20 MEQ Tab.ER PO SCH (08:13)
[2021-07-08] MEDS: Pramipexole 0.125 MG Tab PO SCH (08:13)
[2021-07-08] MEDS: Magnesium Oxide 400 MG Tab PO SCH ×2 (08:13→18:06)
[2021-07-08] MEDS: Tamsulosin 0.4 MG Cap.ER PO SCH (08:14)
[2021-07-08] MEDS: Multivitamin Tab PO SCH (08:14)
[2021-07-08] MEDS: Omeprazole 20 MG Cap.CR PO SCH ×2 (08:14→18:03)
[2021-07-08] MEDS: Fish Oil/Omega-3 Fatty Acids 1 Gm Cap PO SCH ×2 (08:14→18:06)
[2021-07-08] MEDS: Spironolactone 25 MG Tab PO SCH (08:14)
[2021-07-08] MEDS: Aspirin 81 MG Tab.EC PO SCH (08:14)
[2021-07-08] MEDS: Gabapentin 300 MG Cap PO SCH ×4 (08:14→20:32)
[2021-07-08] MEDS: Simethicone 80 MG Tab.Chew PO SCH ×3 (08:14→18:03)
[2021-07-08] MEDS: Lactulose Soln 10 GM/15 ML 30 ML UD Cup PO SCH ×4 (08:15→16:14)
[2021-07-08] MEDS: Furosemide 20 MG Tab PO SCH (08:15)
[2021-07-08] MEDS: Nystatin Topical Powder 15 GM Bottle TOP SCH ×2 (08:21→20:33)
[2021-07-08] MEDS: Lidocaine 4% 1 each Patch TOP SCH ×3 (08:25→20:33)
[2021-07-08] MEDS: Cyanocobalamin (Vitamin B12) 250 MCG Tab PO SCH (08:30)
[2021-07-08 09:13] LABS: ANION GAP 8.9 meq/L (7-15); CHLORIDE,CL 104 mmol/L (98-107); SODIUM,NA 141 mmol/L (136-145)
[2021-07-08] MEDS: Pramipexole 0.5 MG Tab PO SCH (18:03)
[2021-07-08] MEDS: Aluminum Hydroxide/Magnesium Hydroxide/Simethicone Susp 30 ML Cup PO PRN (18:03)
[2021-07-08] MEDS: atorvaSTATin 40 MG Tab PO SCH (20:33)
[2021-07-09] MEDS: Sodium Chloride 0.9% 10 ML Syringe FLUSH SCH ×7 (01:42→17:54)
[2021-07-09] MEDS: ceFAZolin 2 GM in Premix Bag 1 BAG IV SCH ×3 (01:43→17:50)
[2021-07-09] MEDS: oxyCODONE 5 MG Tab PO PRN ×3 (02:33→15:58)
[2021-07-09] MEDS: Omeprazole 20 MG Cap.CR PO SCH ×2 (07:20→17:51)
[2021-07-09] MEDS: Magnesium Oxide 400 MG Tab PO SCH ×2 (07:23→17:50)
[2021-07-09] MEDS: Potassium Chloride 20 MEQ Tab.ER PO SCH (07:24)
[2021-07-09] MEDS: Simethicone 80 MG Tab.Chew PO SCH ×3 (07:24→17:52)
[2021-07-09] MEDS: Fish Oil/Omega-3 Fatty Acids 1 Gm Cap PO SCH ×2 (07:25→17:51)
[2021-07-09] MEDS: metFORMIN 500 MG Tab PO SCH ×3 (07:28→17:53)
[2021-07-09] MEDS: Furosemide 20 MG Tab PO SCH (07:28)
[2021-07-09] MEDS: Spironolactone 25 MG Tab PO SCH (07:30)
[2021-07-09] MEDS: Acetaminophen 650 MG Tab.ER PO PRN (07:30)
[2021-07-09] MEDS: Aspirin 81 MG Tab.EC PO SCH (07:30)
[2021-07-09] MEDS: Iron Polysaccharides Complex 150 MG Cap PO SCH (07:30)
[2021-07-09] MEDS: Multivitamin Tab PO SCH (07:31)
[2021-07-09] MEDS: Pramipexole 0.125 MG Tab PO SCH (07:31)
[2021-07-09] MEDS: Lactulose Soln 10 GM/15 ML 30 ML UD Cup PO SCH ×3 (07:32→15:59)
[2021-07-09] MEDS: Tamsulosin 0.4 MG Cap.ER PO SCH (07:32)
[2021-07-09] MEDS: Gabapentin 300 MG Cap PO SCH ×4 (07:32→19:20)
[2021-07-09] MEDS: Cyanocobalamin (Vitamin B12) 250 MCG Tab PO SCH (07:38)
[2021-07-09] MEDS: Remove Patch LIDOCAINE PATCHES TRDERM SCH (07:39)
[2021-07-09] MEDS: Nystatin Topical Powder 15 GM Bottle TOP SCH ×3 (07:40→19:20)
[2021-07-09] MEDS: Aluminum Hydroxide/Magnesium Hydroxide/Simethicone Susp 30 ML Cup PO PRN (10:46)
[2021-07-09] MEDS: Fluticasone Propionate Nasal Spray 16 GM Bottle NASBOTH PRN (11:54)
[2021-07-09] MEDS: Ondansetron 4 MG Tab.DIS PO PRN (13:13)
--- NOTE | 2021-07-09 13:28 | PCM.SN.2 ---
- Free Text/Narrative Note: Started on patients home primidone 50mg po bid. Start probiotics daily while on anti-biotics. Dietary to consult for protein therapy. Pt requesting paracentesis, not indicated at this time. COnsulted Dr. Brennan and she agrees. Time Documentation
[2021-07-09] MEDS: hydrOXYzine HCl 25 MG Tab PO PRN (14:17)
[2021-07-09] MEDS: Lactobacillus Rhamnosus GG (Probiotic) Cap PO SCH (14:17)
[2021-07-09] MEDS: Primidone 50 MG Tab PO SCH (17:53)
[2021-07-09] MEDS: Pramipexole 0.5 MG Tab PO SCH (17:53)
[2021-07-09] MEDS: Lidocaine 4% 1 each Patch TOP SCH (19:20)
[2021-07-09] MEDS: atorvaSTATin 40 MG Tab PO SCH (19:20)
[2021-07-10] MEDS: ceFAZolin 2 GM in Premix Bag 1 BAG IV SCH ×3 (01:16→17:34)
[2021-07-10] MEDS: Sodium Chloride 0.9% 10 ML Syringe FLUSH SCH ×6 (01:17→17:36)
[2021-07-10] MEDS: Aluminum Hydroxide/Magnesium Hydroxide/Simethicone Susp 30 ML Cup PO PRN ×2 (01:17→10:50)
[2021-07-10] MEDS: traZODone 50 MG Tab PO PRN (01:18)
[2021-07-10] MEDS: hydrOXYzine HCl 25 MG Tab PO PRN ×2 (01:19→13:58)
[2021-07-10] MEDS: oxyCODONE 5 MG Tab PO PRN ×4 (01:19→20:26)
[2021-07-10] MEDS: Fluticasone Propionate Nasal Spray 16 GM Bottle NASBOTH PRN (07:50)
[2021-07-10] MEDS: Omeprazole 20 MG Cap.CR PO SCH ×2 (07:51→16:59)
[2021-07-10] MEDS: metFORMIN 500 MG Tab PO SCH ×3 (07:51→17:34)
[2021-07-10] MEDS: Furosemide 20 MG Tab PO SCH (07:51)
[2021-07-10] MEDS: Simethicone 80 MG Tab.Chew PO SCH ×2 (07:51→12:39)
[2021-07-10] MEDS: Spironolactone 25 MG Tab PO SCH (07:52)
[2021-07-10] MEDS: Magnesium Oxide 400 MG Tab PO SCH ×2 (07:52→17:33)
[2021-07-10] MEDS: Potassium Chloride 20 MEQ Tab.ER PO SCH (07:53)
[2021-07-10] MEDS: Pramipexole 0.125 MG Tab PO SCH (07:53)
[2021-07-10] MEDS: Acetaminophen 650 MG Tab.ER PO PRN (07:53)
[2021-07-10] MEDS: Gabapentin 300 MG Cap PO SCH ×4 (07:54→20:26)
[2021-07-10] MEDS: Tamsulosin 0.4 MG Cap.ER PO SCH (07:54)
[2021-07-10] MEDS: Lactobacillus Rhamnosus GG (Probiotic) Cap PO SCH (07:54)
[2021-07-10] MEDS: Aspirin 81 MG Tab.EC PO SCH (07:54)
[2021-07-10] MEDS: Fish Oil/Omega-3 Fatty Acids 1 Gm Cap PO SCH ×2 (07:54→17:34)
[2021-07-10] MEDS: Primidone 50 MG Tab PO SCH ×2 (07:55→17:34)
[2021-07-10] MEDS: Remove Patch LIDOCAINE PATCHES TRDERM SCH (07:55)
[2021-07-10] MEDS: Multivitamin Tab PO SCH (07:55)
[2021-07-10] MEDS: Cyanocobalamin (Vitamin B12) 250 MCG Tab PO SCH (07:55)
[2021-07-10] MEDS: Lactulose Soln 10 GM/15 ML 30 ML UD Cup PO SCH ×3 (07:56→16:07)
[2021-07-10] MEDS: Nystatin Topical Powder 15 GM Bottle TOP SCH ×3 (10:35→20:32)
[2021-07-10] MEDS: Pramipexole 0.5 MG Tab PO SCH (17:34)
[2021-07-10] MEDS: Simethicone 125 MG Tab.Chew PO SCH (17:34)
[2021-07-10] MEDS: Lidocaine 4% 1 each Patch TOP SCH (20:26)
[2021-07-10] MEDS: atorvaSTATin 40 MG Tab PO SCH (20:26)
[2021-07-11] MEDS: ceFAZolin 2 GM in Premix Bag 1 BAG IV SCH ×3 (02:35→17:36)
[2021-07-11] MEDS: oxyCODONE 5 MG Tab PO PRN ×4 (02:36→21:51)
[2021-07-11] MEDS: Sodium Chloride 0.9% 10 ML Syringe FLUSH SCH ×6 (02:37→17:37)
[2021-07-11] MEDS: hydrOXYzine HCl 25 MG Tab PO PRN ×4 (02:42→21:51)
[2021-07-11 07:55] LABS: ANION GAP 9.9 meq/L (7-15)
[2021-07-11] MEDS: Omeprazole 20 MG Cap.CR PO SCH ×2 (08:26→17:34)
[2021-07-11] MEDS: Aspirin 81 MG Tab.EC PO SCH (08:26)
[2021-07-11] MEDS: Primidone 50 MG Tab PO SCH ×2 (08:27→17:35)
[2021-07-11] MEDS: Pramipexole 0.125 MG Tab PO SCH (08:27)
[2021-07-11] MEDS: Fish Oil/Omega-3 Fatty Acids 1 Gm Cap PO SCH ×2 (08:27→17:35)
[2021-07-11] MEDS: Multivitamin Tab PO SCH (08:28)
[2021-07-11] MEDS: metFORMIN 500 MG Tab PO SCH ×3 (08:28→17:35)
[2021-07-11] MEDS: Magnesium Oxide 400 MG Tab PO SCH ×2 (08:28→17:35)
[2021-07-11] MEDS: Iron Polysaccharides Complex 150 MG Cap PO SCH (08:28)
[2021-07-11] MEDS: Simethicone 125 MG Tab.Chew PO SCH ×3 (08:28→17:35)
[2021-07-11] MEDS: Potassium Chloride 20 MEQ Tab.ER PO SCH (08:29)
[2021-07-11] MEDS: Tamsulosin 0.4 MG Cap.ER PO SCH (08:29)
[2021-07-11] MEDS: Lactobacillus Rhamnosus GG (Probiotic) Cap PO SCH (08:30)
[2021-07-11] MEDS: Spironolactone 25 MG Tab PO SCH (08:30)
[2021-07-11] MEDS: Furosemide 20 MG Tab PO SCH (08:31)
[2021-07-11] MEDS: Lactulose Soln 10 GM/15 ML 30 ML UD Cup PO SCH ×3 (08:32→15:24)
[2021-07-11] MEDS: Gabapentin 300 MG Cap PO SCH ×4 (08:32→19:37)
[2021-07-11] MEDS: Cyanocobalamin (Vitamin B12) 250 MCG Tab PO SCH (08:32)
[2021-07-11] MEDS: Remove Patch LIDOCAINE PATCHES TRDERM SCH (08:33)
[2021-07-11] MEDS: Nystatin Topical Powder 15 GM Bottle TOP SCH ×2 (08:34→19:38)
[2021-07-11] MEDS: Aluminum Hydroxide/Magnesium Hydroxide/Simethicone Susp 30 ML Cup PO PRN ×2 (10:17→21:52)
[2021-07-11] MEDS: Ondansetron 4 MG Tab.DIS PO PRN (14:23)
[2021-07-11] MEDS: Pramipexole 0.5 MG Tab PO SCH (17:35)
[2021-07-11] MEDS: atorvaSTATin 40 MG Tab PO SCH (19:37)
[2021-07-11] MEDS: Lidocaine 4% 1 each Patch TOP SCH (19:38)
[2021-07-12] MEDS: traZODone 50 MG Tab PO PRN (00:04)
[2021-07-12] MEDS: Sodium Chloride 0.9% 10 ML Syringe FLUSH SCH ×6 (02:11→17:37)
[2021-07-12] MEDS: ceFAZolin 2 GM in Premix Bag 1 BAG IV SCH ×3 (02:12→17:35)
[2021-07-12] MEDS: Ondansetron 4 MG Tab.DIS PO PRN ×2 (02:21→15:13)
[2021-07-12] MEDS: Acetaminophen 650 MG Tab.ER PO PRN (03:05)
[2021-07-12] MEDS: oxyCODONE 5 MG Tab PO PRN ×3 (05:38→17:47)
[2021-07-12] MEDS: hydrOXYzine HCl 25 MG Tab PO PRN ×3 (05:38→17:47)
[2021-07-12] MEDS: Multivitamin Tab PO SCH (07:54)
[2021-07-12] MEDS: Lactobacillus Rhamnosus GG (Probiotic) Cap PO SCH (07:54)
[2021-07-12] MEDS: Gabapentin 300 MG Cap PO SCH ×4 (07:54→19:15)
[2021-07-12] MEDS: Lactulose Soln 10 GM/15 ML 30 ML UD Cup PO SCH ×3 (07:54→15:16)
[2021-07-12] MEDS: Fish Oil/Omega-3 Fatty Acids 1 Gm Cap PO SCH ×2 (07:54→17:34)
[2021-07-12] MEDS: Simethicone 125 MG Tab.Chew PO SCH ×3 (07:54→17:34)
[2021-07-12] MEDS: Primidone 50 MG Tab PO SCH ×2 (07:54→17:33)
[2021-07-12] MEDS: Magnesium Oxide 400 MG Tab PO SCH ×2 (07:55→17:34)
[2021-07-12] MEDS: Aspirin 81 MG Tab.EC PO SCH (07:55)
[2021-07-12] MEDS: Pramipexole 0.125 MG Tab PO SCH (07:55)
[2021-07-12] MEDS: Spironolactone 25 MG Tab PO SCH (07:55)
[2021-07-12] MEDS: Tamsulosin 0.4 MG Cap.ER PO SCH (07:55)
[2021-07-12] MEDS: Furosemide 20 MG Tab PO SCH (07:55)
[2021-07-12] MEDS: metFORMIN 500 MG Tab PO SCH ×3 (07:55→17:34)
[2021-07-12] MEDS: Potassium Chloride 20 MEQ Tab.ER PO SCH (07:55)
[2021-07-12] MEDS: Omeprazole 20 MG Cap.CR PO SCH ×2 (07:55→17:34)
[2021-07-12] MEDS: Cyanocobalamin (Vitamin B12) 250 MCG Tab PO SCH (07:56)
[2021-07-12] MEDS: Remove Patch LIDOCAINE PATCHES TRDERM SCH (07:56)
[2021-07-12] MEDS: Nystatin Topical Powder 15 GM Bottle TOP SCH ×2 (07:56→19:15)
[2021-07-12] MEDS: Aluminum Hydroxide/Magnesium Hydroxide/Simethicone Susp 30 ML Cup PO PRN ×2 (08:52→17:33)
[2021-07-12] MEDS: COVID-19 VACC,MRNA(MODERNA)/PF 100 MCG/0.5 mL - 7.5 mL MDV IM ONE (12:02)
[2021-07-12] MEDS: Pramipexole 0.5 MG Tab PO SCH (17:40)
[2021-07-12] MEDS ORDERED: Magnesium Sulfate/Water 4 GM in Premix Bag 1 BAG IV ONE (17:48)
--- NOTE | 2021-07-12 17:52 | PCM.SN.2 ---
- Free Text/Narrative Note: Noted magnesium on 07/09/21 was 1.2. on 500mg po bid at home. Currently 800mg po bid. Will replace with 4 grams now and repeat labs. Could be an aspect of malabsorption with his very loose stools from his lactulose.
[2021-07-12] MEDS: Lidocaine 4% 1 each Patch TOP SCH (19:11)
[2021-07-12] MEDS: atorvaSTATin 40 MG Tab PO SCH (19:15)
[2021-07-13] MEDS: oxyCODONE 5 MG Tab PO PRN ×4 (00:23→20:15)
[2021-07-13] MEDS: hydrOXYzine HCl 25 MG Tab PO PRN ×4 (00:24→20:15)
[2021-07-13] MEDS: ceFAZolin 2 GM in Premix Bag 1 BAG IV SCH ×3 (02:30→17:50)
[2021-07-13] MEDS: Sodium Chloride 0.9% 10 ML Syringe FLUSH SCH ×6 (02:31→17:47)
[2021-07-13] MEDS: Fish Oil/Omega-3 Fatty Acids 1 Gm Cap PO SCH ×2 (07:32→17:46)
[2021-07-13] MEDS: Omeprazole 20 MG Cap.CR PO SCH ×2 (07:32→16:37)
[2021-07-13] MEDS: Cyanocobalamin (Vitamin B12) 250 MCG Tab PO SCH (07:33)
[2021-07-13] MEDS: Aspirin 81 MG Tab.EC PO SCH (07:33)
[2021-07-13] MEDS: Furosemide 20 MG Tab PO SCH (07:33)
[2021-07-13] MEDS: Pramipexole 0.125 MG Tab PO SCH (07:33)
[2021-07-13] MEDS: Iron Polysaccharides Complex 150 MG Cap PO SCH (07:34)
[2021-07-13] MEDS: Magnesium Oxide 400 MG Tab PO SCH ×2 (07:34→17:45)
[2021-07-13] MEDS: Tamsulosin 0.4 MG Cap.ER PO SCH (07:35)
[2021-07-13] MEDS: Primidone 50 MG Tab PO SCH ×2 (07:35→17:46)
[2021-07-13] MEDS: metFORMIN 500 MG Tab PO SCH ×3 (07:35→17:46)
[2021-07-13] MEDS: Simethicone 125 MG Tab.Chew PO SCH ×3 (07:35→17:46)
[2021-07-13] MEDS: Potassium Chloride 20 MEQ Tab.ER PO SCH (07:35)
[2021-07-13] MEDS: Multivitamin Tab PO SCH (07:35)
[2021-07-13] MEDS: Gabapentin 300 MG Cap PO SCH ×4 (07:36→20:11)
[2021-07-13] MEDS: Lactulose Soln 10 GM/15 ML 30 ML UD Cup PO SCH ×3 (07:36→16:37)
[2021-07-13] MEDS: Spironolactone 25 MG Tab PO SCH (07:36)
[2021-07-13] MEDS: Lactobacillus Rhamnosus GG (Probiotic) Cap PO SCH (07:36)
[2021-07-13] MEDS: Nystatin Topical Powder 15 GM Bottle TOP SCH (07:37)
[2021-07-13] MEDS: Remove Patch LIDOCAINE PATCHES TRDERM SCH (07:44)
[2021-07-13] MEDS: Aluminum Hydroxide/Magnesium Hydroxide/Simethicone Susp 30 ML Cup PO PRN ×2 (10:20→17:46)
[2021-07-13] MEDS: Ondansetron 4 MG Tab.DIS PO PRN (11:56)
[2021-07-13] MEDS: Acetaminophen 650 MG Tab.ER PO PRN (11:56)
[2021-07-13] MEDS: Pramipexole 0.5 MG Tab PO SCH (17:46)
[2021-07-13] MEDS: Lidocaine 4% 1 each Patch TOP SCH (20:11)
[2021-07-13] MEDS: atorvaSTATin 40 MG Tab PO SCH (20:11)
[2021-07-14] MEDS: oxyCODONE 5 MG Tab PO PRN ×4 (01:39→22:21)
[2021-07-14] MEDS: hydrOXYzine HCl 25 MG Tab PO PRN ×4 (01:39→22:22)
[2021-07-14] MEDS: ceFAZolin 2 GM in Premix Bag 1 BAG IV SCH ×3 (01:40→17:30)
[2021-07-14] MEDS: Aluminum Hydroxide/Magnesium Hydroxide/Simethicone Susp 30 ML Cup PO PRN ×3 (01:40→18:17)
[2021-07-14] MEDS: Sodium Chloride 0.9% 10 ML Syringe FLUSH SCH ×6 (01:41→17:32)
[2021-07-14] MEDS: Lactulose Soln 10 GM/15 ML 30 ML UD Cup PO SCH ×4 (07:44→18:34)
[2021-07-14] MEDS: Fish Oil/Omega-3 Fatty Acids 1 Gm Cap PO SCH ×2 (07:45→17:31)
[2021-07-14] MEDS: Simethicone 125 MG Tab.Chew PO SCH ×3 (07:45→17:31)
[2021-07-14] MEDS: metFORMIN 500 MG Tab PO SCH ×3 (07:45→17:31)
[2021-07-14] MEDS: Primidone 50 MG Tab PO SCH ×2 (07:45→17:31)
[2021-07-14] MEDS: Furosemide 20 MG Tab PO SCH (07:45)
[2021-07-14] MEDS: Pramipexole 0.125 MG Tab PO SCH (07:45)
[2021-07-14] MEDS: Spironolactone 25 MG Tab PO SCH (07:46)
[2021-07-14] MEDS: Remove Patch LIDOCAINE PATCHES TRDERM SCH (07:46)
[2021-07-14] MEDS: Omeprazole 20 MG Cap.CR PO SCH ×2 (07:46→17:31)
[2021-07-14] MEDS: Gabapentin 300 MG Cap PO SCH ×4 (07:46→19:33)
[2021-07-14] MEDS: Magnesium Oxide 400 MG Tab PO SCH ×2 (07:46→17:31)
[2021-07-14] MEDS: Lactobacillus Rhamnosus GG (Probiotic) Cap PO SCH (11:57)
[2021-07-14] MEDS: Ondansetron 4 MG Tab.DIS PO PRN (11:57)
[2021-07-14] MEDS: Iron Polysaccharides Complex 150 MG Cap PO SCH (11:57)
[2021-07-14] MEDS: Potassium Chloride 20 MEQ Tab.ER PO SCH (11:57)
[2021-07-14] MEDS: Aspirin 81 MG Tab.EC PO SCH (11:58)
[2021-07-14] MEDS: Multivitamin Tab PO SCH (11:58)
[2021-07-14] MEDS: Cyanocobalamin (Vitamin B12) 250 MCG Tab PO SCH (12:02)
[2021-07-14] MEDS: Pramipexole 0.5 MG Tab PO SCH (17:31)
--- NOTE | 2021-07-14 17:58 | PCM.SN.2 ---
- Free Text/Narrative Note: The patient has been taking his lactulose 3 times a day. He is having multiple stools throughout the day. He is having quite a bit of skin irritation around the rectal region. His ammonia last on 07/11/2021 was 23. We will repeated on the . I will decrease him to twice a day lactulose at this time to see if t his helps with his stools and maybe this will help with his sore bottom and will check his ammonia on .
[2021-07-14] MEDS: Lidocaine 4% 1 each Patch TOP SCH (19:32)
[2021-07-14] MEDS: Tamsulosin 0.4 MG Cap.ER PO SCH (19:33)
[2021-07-14] MEDS: atorvaSTATin 40 MG Tab PO SCH (19:33)
[2021-07-15] MEDS: Sodium Chloride 0.9% 10 ML Syringe FLUSH SCH ×6 (02:15→18:26)
[2021-07-15] MEDS: ceFAZolin 2 GM in Premix Bag 1 BAG IV SCH ×3 (02:15→17:43)
[2021-07-15] MEDS: Aluminum Hydroxide/Magnesium Hydroxide/Simethicone Susp 30 ML Cup PO PRN ×2 (02:20→17:46)
[2021-07-15] MEDS: Omeprazole 20 MG Cap.CR PO SCH ×2 (08:06→17:46)
[2021-07-15] MEDS: Spironolactone 25 MG Tab PO SCH (08:06)
[2021-07-15] MEDS: Gabapentin 300 MG Cap PO SCH ×4 (08:07→19:20)
[2021-07-15] MEDS: metFORMIN 500 MG Tab PO SCH ×3 (08:07→17:45)
[2021-07-15] MEDS: Simethicone 125 MG Tab.Chew PO SCH ×3 (08:07→17:45)
[2021-07-15] MEDS: Magnesium Oxide 400 MG Tab PO SCH ×2 (08:07→17:46)
[2021-07-15] MEDS: Furosemide 20 MG Tab PO SCH (08:08)
[2021-07-15] MEDS: Pramipexole 0.125 MG Tab PO SCH (08:08)
[2021-07-15] MEDS: Fish Oil/Omega-3 Fatty Acids 1 Gm Cap PO SCH ×2 (08:09→17:45)
[2021-07-15] MEDS: oxyCODONE 5 MG Tab PO PRN ×2 (08:09→15:25)
[2021-07-15] MEDS: Remove Patch LIDOCAINE PATCHES TRDERM SCH (08:10)
[2021-07-15] MEDS: Lactulose Soln 10 GM/15 ML 30 ML UD Cup PO SCH ×3 (08:11→18:21)
[2021-07-15] MEDS: Primidone 50 MG Tab PO SCH ×2 (08:18→17:51)
[2021-07-15] MEDS: Aspirin 81 MG Tab.EC PO SCH (11:47)
[2021-07-15] MEDS: Potassium Chloride 20 MEQ Tab.ER PO SCH (11:47)
[2021-07-15] MEDS: Lactobacillus Rhamnosus GG (Probiotic) Cap PO SCH (11:48)
[2021-07-15] MEDS: Multivitamin Tab PO SCH (11:48)
[2021-07-15] MEDS: Cyanocobalamin (Vitamin B12) 250 MCG Tab PO SCH (11:48)
[2021-07-15] MEDS: hydrOXYzine HCl 25 MG Tab PO PRN (15:26)
[2021-07-15] MEDS: Pramipexole 0.5 MG Tab PO SCH (17:45)
[2021-07-15] MEDS: atorvaSTATin 40 MG Tab PO SCH (19:20)
[2021-07-15] MEDS: Lidocaine 4% 1 each Patch TOP SCH (19:20)
[2021-07-15] MEDS: Tamsulosin 0.4 MG Cap.ER PO SCH (19:20)
[2021-07-16] MEDS: hydrOXYzine HCl 25 MG Tab PO PRN ×3 (00:22→18:09)
[2021-07-16] MEDS: oxyCODONE 5 MG Tab PO PRN ×3 (00:22→18:08)
[2021-07-16] MEDS: ceFAZolin 2 GM in Premix Bag 1 BAG IV SCH ×3 (02:43→17:12)
[2021-07-16] MEDS: Sodium Chloride 0.9% 10 ML Syringe FLUSH SCH ×6 (02:55→18:08)
[2021-07-16] MEDS: Aluminum Hydroxide/Magnesium Hydroxide/Simethicone Susp 30 ML Cup PO PRN ×2 (02:56→09:38)
[2021-07-16] MEDS: Omeprazole 20 MG Cap.CR PO SCH ×2 (07:32→17:10)
[2021-07-16] MEDS: Gabapentin 300 MG Cap PO SCH ×4 (07:33→20:22)
[2021-07-16] MEDS: Pramipexole 0.125 MG Tab PO SCH (07:33)
[2021-07-16] MEDS: Spironolactone 25 MG Tab PO SCH (07:33)
[2021-07-16] MEDS: Magnesium Oxide 400 MG Tab PO SCH ×2 (07:34→17:12)
[2021-07-16] MEDS: Furosemide 20 MG Tab PO SCH (07:35)
[2021-07-16] MEDS: metFORMIN 500 MG Tab PO SCH ×3 (07:36→17:11)
[2021-07-16] MEDS: Fish Oil/Omega-3 Fatty Acids 1 Gm Cap PO SCH ×2 (07:36→17:11)
[2021-07-16] MEDS: Simethicone 125 MG Tab.Chew PO SCH ×3 (07:36→17:11)
[2021-07-16] MEDS: Remove Patch LIDOCAINE PATCHES TRDERM SCH (07:37)
[2021-07-16] MEDS: Lactulose Soln 10 GM/15 ML 30 ML UD Cup PO SCH ×2 (07:37→16:24)
[2021-07-16] MEDS: Primidone 50 MG Tab PO SCH ×2 (08:32→17:17)
[2021-07-16] MEDS: Potassium Chloride 20 MEQ Tab.ER PO SCH (12:11)
[2021-07-16] MEDS: Multivitamin Tab PO SCH (12:11)
[2021-07-16] MEDS: Aspirin 81 MG Tab.EC PO SCH (12:12)
[2021-07-16] MEDS: Lactobacillus Rhamnosus GG (Probiotic) Cap PO SCH (12:12)
[2021-07-16] MEDS: Iron Polysaccharides Complex 150 MG Cap PO SCH (12:13)
[2021-07-16] MEDS: Cyanocobalamin (Vitamin B12) 250 MCG Tab PO SCH (12:16)
[2021-07-16] MEDS: Pramipexole 0.5 MG Tab PO SCH (17:11)
--- NOTE | 2021-07-16 17:53 | PCM.PN ---
- General Info Date of Service: 07/11/21 Admission Dx/Problem (Free Text): 66-year-old male with a history of type 2 diabetes, peripheral neuropathy, obesity, BPH, alcohol use disorder who was transferred to [facility] in [place] on 06-20-21. He had significant abdominal distention and bilateral lower extremity pitting edema. He had multiple paracentesis due to decompensated liver failure with a total of 20 L of fluid removed. Last paracentesis was on 07/01/2021. While in the hospital he developed a fever and hypotension. He was found to have positive UA and blood cultures growing Aerococcus and Staph epidermidis. CALVIN did not show any valvular vegetations. He was placed on cefazolin with a PICC line. Prolonged treatment 2 to 3 weeks in the hospital. There is no concerns for SBP. CALVIN showed left ventricular ejection fraction of 65%. Intermediate diastolic function. Sepsis resolved. Acute kidney injury resolved. Started on Lasix and spironolactone. He was on lactulose for hepatic encephalopathy prophylaxis. He will need periodic assessment of ascites and therapeutic paracentesis as needed. Weekly CBC, CMP, CRP. While receiving cefazolin. Today the patient does not offer much complaints. He really complains primarily of increasing pain to his feet. He was on a higher dose of gabapentin when he was at home. He has been using his oxycodone every 4 hours [id number]. He does complain of generalized weakness and deconditioning. Otherwise he offers up no additional complaints today. Subjective Update: pt reports pain in his buttocks secondary to sore skin from loose stools 2/2 lactulose use. He has abdominal distension but does not complain of pain. pe ripheral edema present. he is not interested in taking his lactulose as he doesn't like having lose stools. Functional Status: Reports: Pain Controlled, Tolerating Diet - Review of Systems General: Reports: Fatigue HEENT: Reports: No Symptoms Pulmonary: Reports: No Symptoms Cardiovascular: Reports: No Symptoms Gastrointestinal: Reports: Diarrhea, Other (distension) Genitourinary: Reports: No Symptoms Musculoskeletal: Reports: No Symptoms Skin: Reports: No Symptoms Neurological: Reports: No Symptoms Psychiatric: Reports: No Symptoms - Patient Data Vitals - Most Recent: Last Vital Signs Temp 96.8 F L 07/16/21 08:00 Pulse 107 H 07/16/21 08:00 Resp 14 07/16/21 08:00 BP 135/96 H 07/16/21 08:00 Pulse Ox 95 07/16/21 08:00 Weight - Most Recent: 289 lb 4.8 oz I&O - Last 24 Hours: Intake & Output 07/16/21 07/16/21 07/16/21 06:59 14:59 22:59 Intake Total 987 Balance 987 Med Orders - Current: Current Medications Acetaminophen (Acetaminophen 650 Mg Tab.Er) 650 mg PO Q8H PRN PRN Reason: Pain Last Admin: 07/13/21 11:56 Dose: 650 mg Documented by: Al Hydroxide/Mg Hydroxide (Aluminum Hydroxide/Magnesium Hydroxide/Simethicone Susp 30 Ml Cup) 30 ml PO Q6H PRN PRN Reason: GI upset Last Admin: 07/16/21 09:38 Dose: 30 ml Documented by: Artificial Tears (Polyvinyl Alcohol 1.4% Ophth Soln 15 Ml Bottle) 0 ml EYEBOTH Q4HR PRN PRN Reason: Dry Eyes Aspirin (Aspirin 81 Mg Tab.Ec) 81 mg PO 1200 [facility] Last Admin: 07/16/21 12:12 Dose: 81 mg Documented by: Atorvastatin Calcium (Atorvastatin 40 Mg Tab) 40 mg PO BEDTIME [facility] Last Admin: 07/15/21 19:20 Dose: 40 mg Documented by: Cyanocobalamin (Cyanocobalamin (Vitamin B12) 250 Mcg Tab) 250 mcg PO 1200 [facility] Last Admin: 07/16/21 12:16 Dose: 250 mcg Documented by: Fish Oil (Fish Oil/[place]-3 Fatty Acids 1 Gm Cap) 1 gm PO BID [facility] Last Admin: 07/16/21 17:11 Dose: 1 gm Documented by: Fluticasone Propionate (Fluticasone Propionate Nasal [place] 16 Gm Bottle) 0 gm NASBOTH BID PRN PRN Reason: Allergies Last Admin: 07/10/21 07:50 Dose: 1 spray Documented by: Furosemide (Furosemide 20 Mg Tab) 60 mg PO DAILY [facility] Last Admin: 07/16/21 07:35 Dose: 60 mg Documented by: Gabapentin (Gabapentin 300 Mg Cap) 300 mg PO QID [facility] Last Admin: 07/16/21 17:11 Dose: 300 mg Documented by: Heparin Sodium (Porcine) (Heparin Sodium 100 Units/Ml 5 Ml Syringe) 300 units FLUSH Q8H [facility] Last Admin: 07/16/21 09:52 Dose: 300 units Documented by: Hydroxyzine HCl (Hydroxyzine Hcl 25 Mg Tab) 25 mg PO Q6HR PRN PRN Reason: Nausea Last Admin: 07/16/21 09:50 Dose: 25 mg Documented by: Cefazolin Sodium/Dextrose 2 gm (/ Premix) 50 mls @ 100 mls/hr IV Q8H [facility] Stop: 07/20/21 18:01 Last Admin: 07/16/21 17:12 Dose: 100 mls/hr Documented by: Lactobacillus Rhamnosus (Lactobacillus Rhamnosus Gg (Probiotic) Cap) 1 cap PO 1200 [facility] Last Admin: 07/16/21 12:12 Dose: 1 cap Documented by: Lactulose (Lactulose Soln 10 Gm/15 Ml 30 Ml Ud Cup) 20 gm PO BID PRN PRN Reason: Other Lactulose (Lactulose Soln 10 Gm/15 Ml 30 Ml Ud Cup) 10 gm PO 0800,1400 [facility] Last Admin: 07/16/21 16:24 Dose: Not Given Documented by: Lidocaine (Lidocaine 4% 1 Each Patch) 2 each TOP DAILY@1999 [facility] Last Admin: 07/15/21 19:20 Dose: 2 each Documented by: Loperamide HCl (Loperamide 2 Mg Tab) 2 mg PO ASDIRECTED [facility] Magnesium Oxide (Magnesium Oxide 400 Mg Tab) 800 mg PO BID [facility] Last Admin: 07/16/21 17:12 Dose: 800 mg Documented by: Metformin HCl (Metformin 500 Mg Tab) 500 mg PO TIDMEALS [facility] Last Admin: 07/16/21 17:11 Dose: 500 mg Documented by: Miscellaneous Information (Remove Patch Lidocaine Patches) 2 ea TRDERM DAILY [facility] Last Admin: 07/16/21 07:37 Dose: 2 ea Documented by: Multivitamins/Minerals/Vitamin C (Multivitamin Tab) 1 tab PO 1200 [facility] Last Admin: 07/16/21 12:11 Dose: 1 tab Documented by: Omeprazole (Omeprazole 20 Mg Cap.Cr) 40 mg PO BIDMEALS [facility] Last Admin: 07/16/21 17:10 Dose: 40 mg Documented by: Ondansetron HCl (Ondansetron 4 Mg Tab.Dis) 4 mg PO Q6H PRN PRN Reason: Nausea/Vomiting Last Admin: 07/14/21 11:57 Dose: 4 mg Documented by: Oxycodone HCl (Oxycodone 5 Mg Tab) 5 mg PO Q6H PRN PRN Reason: Pain Last Admin: 07/16/21 09:51 Dose: 5 mg Documented by: Polysaccharide Iron Complex (Iron Polysaccharides Complex 150 Mg Cap) 150 mg PO Q48H [facility] Last Admin: 07/16/21 12:13 Dose: 150 mg Documented by: Potassium Chloride (Potassium Chloride 20 Meq Tab.Er) 40 meq PO 1200 [facility] Last Admin: 07/16/21 12:11 Dose: 40 meq Documented by: Pramipexole Dihydrochloride (Pramipexole 0.5 Mg Tab) 0.5 mg PO QPM [facility] Last Admin: 07/16/21 17:11 Dose: 0.5 mg Documented by: Pramipexole Dihydrochloride (Pramipexole 0.125 Mg Tab) 0.25 mg PO DAILY [facility] Last Admin: 07/16/21 07:33 Dose: 0.25 mg Documented by: Primidone (Primidone 50 Mg Tab) 50 mg PO BID [facility] Last Admin: 07/16/21 17:17 Dose: 50 mg Documented by: Simethicone (Simethicone 125 Mg Tab.Chew) 125 mg PO TID [facility] Last Admin: 07/16/21 17:11 Dose: 125 mg Documented by: Sodium Chloride (Sodium Chloride 0.9% 10 Ml Syringe) 10 ml FLUSH Q8H [facility] Last Admin: 07/16/21 09:52 Dose: 10 ml Documented by: Sodium Chloride (Sodium Chloride 0.9% 10 Ml Syringe) 10 ml FLUSH Q8H [facility] Last Admin: 07/16/21 17:13 Dose: 10 ml Documented by: Spironolactone (Spironolactone 25 Mg Tab) 150 mg PO DAILY [facility] Last Admin: 07/16/21 07:33 Dose: 150 mg Documented by: Tamsulosin HCl (Tamsulosin 0.4 Mg Cap.Er) 0.4 mg PO BEDTIME [facility] Last Admin: 07/15/21 19:20 Dose: 0.4 mg Documented by: Trazodone HCl (Trazodone 50 Mg Tab) 25 mg PO BEDTIME PRN PRN Reason: Insomnia Last Admin: 07/12/21 00:04 Dose: 25 mg Documented by: Discontinued Medications Acetaminophen (Acetaminophen 650 Mg Tab.Er) 325 mg PO Q6HR PRN PRN Reason: Pain Last Admin: 07/04/21 23:04 Dose: 325 mg Documented by: Aspirin (Aspirin 81 Mg Tab.Ec) 81 mg PO DAILY [facility] Last Admin: 07/13/21 07:33 Dose: 81 mg Documented by: COVID-19 Vaccine mRNA LNP-S (MOD) (PF) (Covid-19 Vacc,Mrna(Moderna)/Pf 100 Mcg/0.5 Ml - 7.5 Ml Mdv) 50 mcg IM .ONCE ONE Stop: 07/12/21 11:01 Last Admin: 07/12/21 12:02 Dose: 50 mcg Documented by: Cyanocobalamin (Cyanocobalamin (Vitamin B12) 250 Mcg Tab) 250 mcg PO DAILY [facility] Last Admin: 07/13/21 07:33 Dose: 250 mcg Documented by: Gabapentin (Gabapentin 100 Mg Cap) 100 mg PO TID [facility] Last Admin: 07/03/21 18:07 Dose: 100 mg Documented by: Gabapentin (Gabapentin 300 Mg Cap) 300 mg PO TID [facility] Last Admin: 07/08/21 12:06 Dose: 300 mg Documented by: Heparin Sodium (Porcine) (Heparin Sodium 100 Units/Ml 5 Ml Syringe) 300 units IVPUSH Q8H [facility] Last Admin: 07/05/21 10:28 Dose: 300 units Documented by: Heparin Sodium (Porcine) (Heparin Sodium 100 Units/Ml 5 Ml Syringe) Confirm Administered Dose 500 units .ROUTE .STK-MED ONE Stop: 07/03/21 18:59 Last Admin: 07/03/21 19:12 Dose: Not Given Documented by: Cefazolin Sodium/Dextrose (Ancef 2 Gm/50 Ml) 50 mls @ 100 mls/hr IV Q8H [facility] Magnesium Sulfate 4 gm/ Premix 100 mls @ 50 mls/hr IV ONETIME ONE Stop: 07/12/21 19:47 Last Admin: 07/12/21 18:14 Dose: 50 mls/hr Documented by: Lactobacillus Rhamnosus (Lactobacillus Rhamnosus Gg (Probiotic) Cap) 1 cap PO DAILY [facility] Last Admin: 07/13/21 07:36 Dose: 1 cap Documented by: Lactulose (Lactulose Soln 10 Gm/15 Ml 30 Ml Ud Cup) 10 gm PO TID [facility] Last Admin: 07/04/21 12:59 Dose: Not Given Documented by: Lactulose (Lactulose Soln 10 Gm/15 Ml 30 Ml Ud Cup) 10 gm PO TID@0800,1200,1600 [facility] Last Admin: 07/14/21 17:31 Dose: 10 gm Documented by: Lactulose (Lactulose Soln 10 Gm/15 Ml 30 Ml Ud Cup) 10 gm PO BID [facility] Last Admin: 07/15/21 18:21 Dose: Not Given Documented by: Lidocaine (Lidocaine 4% 1 Each Patch) 1 each TOP QID PRN PRN Reason: Pain Lidocaine (Lidocaine 4% 1 Each Patch) 1 each TOP DAILY [facility] Last Admin: 07/08/21 08:25 Dose: Not Given Documented by: Lidocaine (Lidocaine 4% 1 Each Patch) 1 each TOP DAILY [facility] Last Admin: 07/08/21 08:25 Dose: Not Given Documented by: Magnesium Oxide (Magnesium Oxide 400 Mg Tab) 400 mg PO BID [facility] Last Admin: 07/05/21 08:13 Dose: 400 mg Documented by: Miscellaneous Information (Remove Patch *Lidocane Patch #1*) 1 ea TRDERM BEDTIME [facility] Last Admin: 07/07/21 21:50 Dose: 1 ea Documented by: Miscellaneous Information (Remove Patch *Lidocane Patch #2*) 1 ea TRDERM BEDTIME [facility] Last Admin: 07/07/21 21:50 Dose: 1 ea Documented by: Multivitamins/Minerals/Vitamin C (Multivitamin Tab) 1 tab PO DAILY [facility] Last Admin: 07/13/21 07:35 Dose: 1 tab Documented by: Non-Formulary Medication (Cefazolin [Ancef In Ns 2 Gm/100 Ml]) 2 gm IV Q8HR [facility] Nystatin (Nystatin Topical Powder 15 Gm Bottle) 1 gm TOP Q12HR [facility] Last Admin: 07/13/21 07:37 Dose: Not Given Documented by: Oxycodone HCl (Oxycodone 5 Mg Tab) 5 mg PO Q4HR PRN PRN Reason: Pain Last Admin: 07/08/21 11:18 Dose: 5 mg Documented by: Polysaccharide Iron Complex (Iron Polysaccharides Complex 150 Mg Cap) 150 mg PO Q48H [facility] Last Admin: 07/13/21 07:34 Dose: 150 mg Documented by: Potassium Chloride (Potassium Chloride 20 Meq Tab.Er) 40 meq PO DAILY [facility] Last Admin: 07/13/21 07:35 Dose: 40 meq Documented by: Simethicone (Simethicone 80 Mg Tab.Chew) 80 mg PO TID [facility] Last Admin: 07/10/21 12:39 Dose: 80 mg Documented by: Simethicone (Simethicone 80 Mg Tab.Chew) 80 mg PO ONETIME ONE Stop: 07/05/21 18:10 Last Admin: 07/05/21 19:38 Dose: 80 mg Documented by: Sodium Chloride (Sodium Chloride 0.9% 10 Ml Syringe) 10 ml IV Q8H [facility] Last Admin: 07/05/21 10:28 Dose: 10 ml Documented by: Sodium Chloride (Sodium Chloride 0.9% 10 Ml Syringe) 10 ml IV Q8H [facility] Last Admin: 07/05/21 10:28 Dose: 10 ml Documented by: Tamsulosin HCl (Tamsulosin 0.4 Mg Cap.Er) 0.4 mg PO DAILY [facility] Last Admin: 07/13/21 07:35 Dose: 0.4 mg Documented by: - Exam Quality Assessment: Skin Breakdown (stage I ulceration on buttocks. barrier cream present) General: Alert, Oriented, No Acute Distress HEENT: Scleral Icterus Neck: Supple, No JVD Lungs: Clear to Auscultation, Normal Respiratory Effort. No: Crackles, Rales, Rhonchi, Rub, Wheezing Cardiovascular: Regular Rate, Regular Rhythm, No Murmurs GI/Abdominal Exam: Distended, Other (fluid wave, tense, protruberant. decreased bowel sounds 2/2 ascited) (Male) Exam: Scrotal Swelling Extremities: Pedal Edema Peripheral Pulses: 2+: Posterior Tibial (L), Posterior Tibial (R), Dorsalis Pedis (L), Dorsalis Pedis (R) Skin: Warm, Dry Wound/Incisions: Healing Well Neurological: No New Focal Deficit Psy/Mental Status: Alert, Normal Mood, Other (oriented to self and place only) - Patient Data Result Diagrams: 07/11/21 07:16 07/11/21 07:16 Sepsis Event Note - Evaluation Sepsis Screening Result: No Definite Risk - Focused Exam Vital Signs: Vital Signs Temp Pulse Resp BP Pulse Ox 07/16/21 08:00 96.8 F L 107 H 14 135/96 H 95 - Problem List Review Problem List Initiated/Reviewed/Updated: Yes - Assessment Assessment:: see plan for assessment and plan - Plan Plan:: Acute problems: Staph epidermidis bacteremia Aerococcus bacteremia with likely urinary source. [facility]. ID follow on 07/18/21 Cefazolin 2000 mg intravenously every 8 hours for 24 days. Periodic assessment of ascites and therapeutic paracentesis as needed. To be completed by Naldo Drummond DNP/BROILER SUPERVISOR-C or Dr. Brennan. Hx of etoh abuse and dependence RIZVI subacute on chronic decompensated hepatic failure secondary to above anasarca 2/2 above Hx of metabolic encephalopathy 2/2 above hyperammonemia - continue Lasix 60 mg daily and spironolactone 150 mg daily - lactulose 15 mg p.o. 3 times a day. with goal of 3 large BM daily - refer to GI/hepatology at discharge for continued treatment and evaluation. - strict I/O - Hydroxyzine 1 tablet by mouth every 6 hours as needed for itching and nausea DMII, non insulin dependent, in obese patient with diabetic polyneuropathy as adverse effect - continue metformin 500mg tid - continue increased dose of gabapentin 300mg tid (home dose originally 100mg tid) Lesion on mid shaft of penis: resolving - likely 2/2 madrigal catheter insertion - Wound care aquafor tid. hypomagnesemia: - continue to monitor and replace to WNL Hypokalemia: - continue current supplementation. recheck daily Chronic conditions: continue home medications as ordered - Hx of first degree AV block: no ICD or pacemaker - CAD, [place] heart, [place] artery, unspecified angina: continue ASA 81mg once daily - Hx of VA - Hx of essential tremor: continue primidone - RLS: continue pramipexole - CKD stage II: currently baseline - Benign essential HTN: currently well controlled on no home medications - mixed HLD: DC statin given elevated LFTs - unspecified depression with anxiety - severe obesity: current BMI 39.2: - unspecified chronic pain on COAT agreement: continue oxy IR 5mg every 6 hours PRN - OA of multiple sites: DC acetaminophen given acute decompensated hepatic failure - GERD without esophagitis: continue omeprazole - NIKKY not on CPAP - Chronic diastolic heart failure: continue lasix 60mg PO once daily - PERSONAL COMPUTER SPECIALIST, unspecified - BPH with LUTS: continue tamsulosin - Iron deficiency anemia: continue iron supplementation. admit hemoglobin 9.9. Interval Hx/MDM: currently titrating lactulose to 3 BMs per day. pt reports sore skin on buttocks. nursing aware and barrier cream is being used. He is diuresing well with home lasix. no need for PRN paracentesis at this time. No supplemental oxygen requirement. continuing current IV abx until follow up with ena BROWER. adjustments to home medications reflected above under chronic conditions. rech ecking electrolytes daily and replacing PRN to maintain WNL>
[2021-07-16] MEDS: Lidocaine 4% 1 each Patch TOP SCH (20:19)
[2021-07-16] MEDS: atorvaSTATin 40 MG Tab PO SCH (20:22)
[2021-07-16] MEDS: Tamsulosin 0.4 MG Cap.ER PO SCH (20:22)
[2021-07-17] MEDS: oxyCODONE 5 MG Tab PO PRN ×3 (00:43→15:55)
[2021-07-17] MEDS: hydrOXYzine HCl 25 MG Tab PO PRN ×2 (00:43→15:55)
[2021-07-17] MEDS: Aluminum Hydroxide/Magnesium Hydroxide/Simethicone Susp 30 ML Cup PO PRN ×3 (01:32→18:46)
[2021-07-17] MEDS: Sodium Chloride 0.9% 10 ML Syringe FLUSH SCH ×6 (01:34→18:15)
[2021-07-17] MEDS: ceFAZolin 2 GM in Premix Bag 1 BAG IV SCH ×3 (01:40→18:14)
[2021-07-17] MEDS: Omeprazole 20 MG Cap.CR PO SCH ×2 (08:49→18:13)
[2021-07-17] MEDS: Gabapentin 300 MG Cap PO SCH ×4 (08:50→19:58)
[2021-07-17] MEDS: Simethicone 125 MG Tab.Chew PO SCH ×3 (08:50→18:13)
[2021-07-17] MEDS: Magnesium Oxide 400 MG Tab PO SCH ×2 (08:50→18:12)
[2021-07-17] MEDS: Pramipexole 0.125 MG Tab PO SCH (08:50)
[2021-07-17] MEDS: Fish Oil/Omega-3 Fatty Acids 1 Gm Cap PO SCH ×2 (08:50→18:12)
[2021-07-17] MEDS: Furosemide 20 MG Tab PO SCH (08:50)
[2021-07-17] MEDS: Spironolactone 25 MG Tab PO SCH (08:50)
[2021-07-17] MEDS: Remove Patch LIDOCAINE PATCHES TRDERM SCH (08:51)
[2021-07-17] MEDS: Lactulose Soln 10 GM/15 ML 30 ML UD Cup PO SCH ×2 (08:51→14:32)
[2021-07-17] MEDS: Primidone 50 MG Tab PO SCH ×2 (08:51→18:13)
[2021-07-17] MEDS: metFORMIN 500 MG Tab PO SCH ×3 (08:51→18:14)
[2021-07-17] MEDS: Lidocaine 4% 1 each Patch TOP SCH (10:35)
[2021-07-17] MEDS: Acetaminophen 650 MG Tab.ER PO PRN (10:39)
[2021-07-17] MEDS: Aspirin 81 MG Tab.EC PO SCH (11:33)
[2021-07-17] MEDS: Multivitamin Tab PO SCH (11:33)
[2021-07-17] MEDS: Potassium Chloride 20 MEQ Tab.ER PO SCH (11:33)
[2021-07-17] MEDS: Cyanocobalamin (Vitamin B12) 250 MCG Tab PO SCH (11:33)
[2021-07-17] MEDS: Lactobacillus Rhamnosus GG (Probiotic) Cap PO SCH (11:33)
[2021-07-17] MEDS: Pramipexole 0.5 MG Tab PO SCH (18:13)
[2021-07-17] MEDS: Ondansetron 4 MG Tab.DIS PO PRN (18:46)
[2021-07-17] MEDS: Tamsulosin 0.4 MG Cap.ER PO SCH (19:58)
[2021-07-17] MEDS: atorvaSTATin 40 MG Tab PO SCH (19:58)
[2021-07-17] MEDS ORDERED: Lidocaine 4% 1 each Patch TOP SCH (20:00)
[2021-07-17] MEDS ORDERED: Remove Patch LIDOCAINE PATCHES TRDERM SCH (20:00)
[2021-07-18] MEDS: Ondansetron 4 MG Tab.DIS PO PRN ×2 (01:54→10:19)
[2021-07-18] MEDS: ceFAZolin 2 GM in Premix Bag 1 BAG IV SCH ×2 (02:37→10:15)
[2021-07-18] MEDS: Sodium Chloride 0.9% 10 ML Syringe FLUSH SCH ×4 (02:40→10:17)
[2021-07-18] MEDS: Pramipexole 0.125 MG Tab PO SCH (07:45)
[2021-07-18] MEDS: Primidone 50 MG Tab PO SCH (07:45)
[2021-07-18] MEDS: Lidocaine 4% 1 each Patch TOP SCH (07:46)
[2021-07-18] MEDS: Magnesium Oxide 400 MG Tab PO SCH (07:46)
[2021-07-18] MEDS: Simethicone 125 MG Tab.Chew PO SCH ×2 (07:46→13:02)
[2021-07-18] MEDS: Furosemide 20 MG Tab PO SCH (07:47)
[2021-07-18] MEDS: metFORMIN 500 MG Tab PO SCH ×2 (07:47→13:01)
[2021-07-18] MEDS: Omeprazole 20 MG Cap.CR PO SCH (07:47)
[2021-07-18] MEDS: Fish Oil/Omega-3 Fatty Acids 1 Gm Cap PO SCH (07:48)
[2021-07-18] MEDS: Gabapentin 300 MG Cap PO SCH ×2 (07:48→13:02)
[2021-07-18] MEDS: Spironolactone 25 MG Tab PO SCH (07:49)
[2021-07-18] MEDS: Lactulose Soln 10 GM/15 ML 30 ML UD Cup PO SCH ×3 (07:50→15:31)
[2021-07-18 07:51] LABS: ANION GAP 9.2 meq/L (7-15)
[2021-07-18] MEDS: oxyCODONE 5 MG Tab PO PRN (10:18)
[2021-07-18] MEDS: hydrOXYzine HCl 25 MG Tab PO PRN (10:19)
[2021-07-18] MEDS: Lactobacillus Rhamnosus GG (Probiotic) Cap PO SCH (13:01)
[2021-07-18] MEDS: Iron Polysaccharides Complex 150 MG Cap PO SCH (13:01)
[2021-07-18] MEDS: Aspirin 81 MG Tab.EC PO SCH (13:02)
[2021-07-18] MEDS: Cyanocobalamin (Vitamin B12) 250 MCG Tab PO SCH (13:02)
[2021-07-18] MEDS: Multivitamin Tab PO SCH (13:02)
[2021-07-18] MEDS: Potassium Chloride 20 MEQ Tab.ER PO SCH (13:02)
[2021-07-18 13:04] VITALS: BP 135/85; PULSE 83
--- NOTE | 2021-07-18 13:35 | PCM.DCSUM1 ---
Discharge Summary - Hospital Course Diagnosis: Stroke: No Modified Leia Scale: No Symptoms at All Modified Leia Scale Score: 0 - Discharge Data Discharge Date: 07/18/21 Discharge Disposition: Home, W Home Health Agency 06 Condition: Good - Referral to Home Health Date of Face to Face Encounter: 07/15/21 Reason for Homebound Status: Assist with ADLs. Primary Care Physician: Chelsy Nunez MD Skilled Need: lab draw, chronic medical monitoring - Discharge Diagnosis/Problem(s) (1) Liver failure SNOMED Code(s): 71064055 ICD Code: K72.90 - HEPATIC FAILURE, UNSPECIFIED WITHOUT COMA Status: Acute Current Visit: Yes (2) Sepsis SNOMED Code(s): 50223085 ICD Code: A41.9 - SEPSIS, UNSPECIFIED ORGANISM Status: Acute Current Visit: Yes (3) Anemia SNOMED Code(s): 417810542 ICD Code: D64.9 - ANEMIA, UNSPECIFIED Status: Acute Current Visit: No Problem Details: Patient's hemoglobin on admission was 7.6. He received 2 units of RBCs his hemoglobin today is 9.4. He is being followed by his primary care with positive stools for blood although he has had an upper GI as well as lower GI which did not find any site of bleeding. He is also waiting for a pill camera results. His anemia is most likely due to chronic low volume blood loss. His iron level is quite low in the mid 15's. We will set him up for outpatient IV feraheme. See PCP about pill camera results. This is most likely his primary cause of his SOB as well and his severe deconditioning. Qualifiers: Anemia type: iron deficiency Iron deficiency anemia type: chronic blood loss Qualified Code(s): D50.0 - Iron deficiency anemia secondary to blood loss (chronic) (4) CHF (congestive heart failure) SNOMED Code(s): 04501776 ICD Code: I50.9 - HEART FAILURE, UNSPECIFIED Status: Acute Priority: High Current Visit: No Onset Date: ~05/08/21 Problem Details: No chest pain or anginal type symptoms. NO SOB at rest or an exertion. 1+ bilatera edema. Will continue his torsemide at home. Lungs clear sats okay. I think a lot of his SOB is from his deconditioning as well as his anemia. No signs of CHF exacerbation at this time. Will continue home therapy. Qualifiers: Heart failure type: unspecified Heart failure chronicity: acute on chronic Qualified Code(s): I50.9 - Heart failure, unspecified (5) Hypoalbuminemia SNOMED Code(s): 234287443 ICD Code: E88.09 - OTH DISORDERS OF PLASMA-PROTEIN METABOLISM, NEC Status: Chronic Priority: Medium Current Visit: No Onset Date: 10/29/20 Problem Details: Observe for now. (6) Physical deconditioning SNOMED Code(s): 02040721694364 ICD Code: R53.81 - OTHER MALAISE Status: Chronic Priority: High Current Visit: No Problem Details: Patient is minimally mobile at home, worse now over last few weeks. Home PT OT and health. Really needs to get off the chair start moving. - Patient Summary/Data Consults: Consultations 07/03/21 19:11 OT Evaluation and Treatment [CONS] Routine PT Evaluation and Treatment [CONS] Routine 07/08/21 05:33 Consult to Dietary [Consult to Public Relations Coordinator] [CONS] Routine - Discharge Plan Prescriptions/Med Rec: Potassium Chloride [Klor-Con M20] 40 meq PO 1200 30 Days #60 tab.er Home Medications: Home Meds Multivitamin [Daily Multiple Vitamin] 1 tab PO DAILY 08/06/16 [History] [place]-3S/DHA/Epa/Fish Oil [[place]-3 Fish Oil 1,000 mg Sfgl] 1,000 mg PO BID 01/10/20 [History] Omeprazole 40 mg PO BIDMEALS 01/10/20 [History] Pramipexole [Mirapex] 0.25 mg PO DAILY 01/10/20 [History] hydrOXYzine HCL [Hydroxyzine HCl] 25 mg PO Q6HR PRN 01/10/20 [History] Loperamide HCl [Imodium A-D] 2 mg PO ASDIRECTED 10/29/20 [History] Fluticasone Propionate [Flonase] 1 spray NASBOTH BID PRN 10/30/20 [History] Aspirin [Halfprin] 81 mg PO DAILY 11/02/20 [History] Carboxymethylcellulose Sodium [Artificial Tears] 1 drop EYEBOTH Q4HR PRN 11/02/20 [History] Cyanocobalamin (Vitamin B-12) [Vitamin B-12] 250 mcg PO DAILY 11/02/20 [History] Iron Polysaccharide Complex [Poly-Iron] 150 mg PO ASDIRECTED 11/02/20 [History] Magnesium 500 mg BID 11/02/20 [History] Ondansetron [Zofran ODT] 4 mg PO Q6H PRN 11/02/20 [History] Tamsulosin [Flomax] 0.4 mg PO DAILY 11/02/20 [History] atorvaSTATin Calcium [Lipitor] 40 mg PO BEDTIME 11/02/20 [History] Acetaminophen [Acetaminophen 8 Hour] 325 mg PO Q6HR PRN 05/29/21 [History] Pramipexole [Mirapex] 0.5 mg PO QPM 05/29/21 [History] traZODone 0.5 tab PO BEDTIME PRN 05/29/21 [History] Furosemide 60 mg PO DAILY 07/03/21 [History] Gabapentin [Neurontin] 100 mg PO TID 07/03/21 [History] Heparin Sodium,Porcine/PF [Heparin Lock Flush 100 Unit/ml] 300 unit IV Q8HR 07/03/21 [History] Lactulose 30 ml PO BID PRN 07/03/21 [History] Lactulose [Cephulac] 15 ml PO TID 07/03/21 [History] Lidocaine [Salonpas] 1 each TP QID PRN 07/03/21 [History] Sodium Chloride 0.9% [Saline Flush Sterile Syringe] 10 ml FLUSH Q8HR 07/03/21 [History] Spironolactone 150 mg PO DAILY 07/03/21 [History] ceFAZolin [Ancef in NS 2 GM/100 ML] 2 gm IV Q8HR 07/03/21 [History] metFORMIN [Glucophage XR] 1,500 mg PO BIDMEALS 07/03/21 [History] oxyCODONE 5 mg PO Q4HR PRN 07/03/21 [History] Primidone 50 mg PO BID 07/10/21 [History] Acetaminophen [Tylenol Arthritis Pain] 650 mg PO Q8H PRN tab.er 07/18/21 [Rx] Alum Hydrox/Mag Hydrox/Simeth [Mag-Al Plus] 30 ml PO Q6H PRN cup 07/18/21 [Rx] Lactobacillus Rhamnosus GG [Culturelle] 1 cap PO 1200 cap 07/18/21 [Rx] Lidocaine 4% [Aspercreme 4%] 2 each TOP DAILY patch 07/18/21 [Rx] Potassium Chloride [Klor-Con M20] 40 meq PO 1200 30 Days #60 tab.er 07/18/21 [Rx] - Discharge Summary/Plan Comment DC Time >30 min.: Yes Total # of Minutes for Discharge Time: 45 Discharge Summary/Plan Comment: Home to rest. Continue with current medications. Lactulose twice daily. Make sure you are taking this every day. Aim for 3 bowel movements a day. Apply skin barrier to buttocks twice daily and after bowel movements. Lab draw with home care on Thursday. Continue with the antibiotic that was started by Dr. Barnes. Return to ER if increased shortness of breath, fever, chills, lightheadedness, or abdominal pain. - Patient Data Vitals - Most Recent: Last Vital Signs Temp 36.9 C 07/18/21 08:00 Pulse 83 07/18/21 08:00 Resp 18 07/18/21 08:00 BP 135/85 07/18/21 08:00 Pulse Ox 95 07/18/21 08:00 Weight - Most Recent: 128.866 kg I&O - Last 24 hours: Intake & Output 07/17/21 07/18/21 07/18/21 22:59 06:59 14:59 Intake Total 100 807 Balance 100 807 Lab Results - Last 24 hrs: Laboratory Results - last 24 hr 07/18/21 07/18/21 07/18/21 Range/Units 07:15 07:15 07:15 WBC 5.7 (4.0-10.2) K/uL RBC 3.76 L (4.33-5.41) M/uL Hgb 10.5 L (13.1-16.8) g/dL Hct 34.6 L (39.0-49.0) % MCV 92.0 (84.0-98.0) fL MCH 27.9 L (28.2-33.3) pg MCHC 30.3 L (31.7-36.0) g/dL RDW 24.8 H (11.2-14.1) % Plt Count 212 (150-350) K/uL Neut % (Auto) 60.4 (45.0-80.0) % Lymph % (Auto) 26.5 (10.0-50.0) % [place] % (Auto) 9.2 (2.0-14.0) % Eos % (Auto) 3.0 (0.0-5.0) % Baso % (Auto) 0.9 (0.0-2.0) % Neut # (Auto) 3.46 (1.40-7.00) K/uL Lymph # (Auto) 1.52 (0.50-3.50) K/uL [place] # (Auto) 0.53 (0.00-1.00) K/uL Eos # (Auto) 0.17 (0.00-0.50) K/uL Baso # (Auto) 0.05 (0.00-0.20) K/uL ESR (0-20) mm/hr Sodium 142 (136-145) mmol/L Potassium 4.5 (3.5-5.1) mmol/L Chloride 105 (98-107) mmol/L Carbon Dioxide 27.8 (21.0-32.0) mmol/L Anion Gap 9.2 (7-15) meq/L BUN 35 H (7-18) mg/dL Creatinine 1.31 H (0.51-1.17) mg/dL Est Cr Clr Drug Dosing 60.88 mL/min Estimated GFR (MDRD) 55 mL/min Glucose 164 H (70-99) mg/dL Calcium 9.6 (8.5-10.1) mg/dL Total Bilirubin 0.3 (0.2-1.0) mg/dL AST 52 H (15-37) U/L ALT 27 (12-78) U/L Alkaline Phosphatase 175 H (46-116) IU/L Ammonia 14 (11-32) umol/L C-Reactive Protein 0.7 (<=0.9) mg/dL Total Protein 7.1 (6.4-8.2) g/dL Albumin 3.1 L (3.4-5.0) g/dL 07/18/21 Range/Units 07:15 WBC (4.0-10.2) K/uL RBC (4.33-5.41) M/uL Hgb (13.1-16.8) g/dL Hct (39.0-49.0) % MCV (84.0-98.0) fL MCH (28.2-33.3) pg MCHC (31.7-36.0) g/dL RDW (11.2-14.1) % Plt Count (150-350) K/uL Neut % (Auto) (45.0-80.0) % Lymph % (Auto) (10.0-50.0) % [place] % (Auto) (2.0-14.0) % Eos % (Auto) (0.0-5.0) % Baso % (Auto) (0.0-2.0) % Neut # (Auto) (1.40-7.00) K/uL Lymph # (Auto) (0.50-3.50) K/uL [place] # (Auto) (0.00-1.00) K/uL Eos # (Auto) (0.00-0.50) K/uL Baso # (Auto) (0.00-0.20) K/uL ESR 67 H (0-20) mm/hr Sodium (136-145) mmol/L Potassium (3.5-5.1) mmol/L Chloride (98-107) mmol/L Carbon Dioxide (21.0-32.0) mmol/L Anion Gap (7-15) meq/L BUN (7-18) mg/dL Creatinine (0.51-1.17) mg/dL Est Cr Clr Drug Dosing mL/min Estimated GFR (MDRD) mL/min Glucose (70-99) mg/dL Calcium (8.5-10.1) mg/dL Total Bilirubin (0.2-1.0) mg/dL AST (15-37) U/L ALT (12-78) U/L Alkaline Phosphatase (46-116) IU/L Ammonia (11-32) umol/L C-Reactive Protein (<=0.9) mg/dL Total Protein (6.4-8.2) g/dL Albumin (3.4-5.0) g/dL Med Orders - Current: Current Medications Acetaminophen (Acetaminophen 650 Mg Tab.Er) 650 mg PO Q8H PRN PRN Reason: Pain Last Admin: 07/17/21 10:39 Dose: 650 mg Documented by: Al Hydroxide/Mg Hydroxide (Aluminum Hydroxide/Magnesium Hydroxide/Simethicone Susp 30 Ml Cup) 30 ml PO Q6H PRN PRN Reason: GI upset Last Admin: 07/17/21 18:46 Dose: 30 ml Documented by: Artificial Tears (Polyvinyl Alcohol 1.4% Ophth Soln 15 Ml Bottle) 0 ml EYEBOTH Q4HR PRN PRN Reason: Dry Eyes Aspirin (Aspirin 81 Mg Tab.Ec) 81 mg PO 1200 AVTAR Last Admin: 07/18/21 13:02 Dose: Not Given Documented by: Atorvastatin Calcium (Atorvastatin 40 Mg Tab) 40 mg PO BEDTIME [facility] Last Admin: 07/17/21 19:58 Dose: 40 mg Documented by: Cyanocobalamin (Cyanocobalamin (Vitamin B12) 250 Mcg Tab) 250 mcg PO 1200 AVTAR Last Admin: 07/18/21 13:02 Dose: Not Given Documented by: Fish Oil (Fish Oil/[place]-3 Fatty Acids 1 Gm Cap) 1 gm PO BID [facility] Last Admin: 07/18/21 07:48 Dose: 1 gm Documented by: Fluticasone Propionate (Fluticasone Propionate Nasal [place] 16 Gm Bottle) 0 gm NASBOTH BID PRN PRN Reason: Allergies Last Admin: 07/10/21 07:50 Dose: 1 spray Documented by: Furosemide (Furosemide 20 Mg Tab) 60 mg PO DAILY [facility] Last Admin: 07/18/21 07:47 Dose: 60 mg Documented by: Gabapentin (Gabapentin 300 Mg Cap) 300 mg PO QID [facility] Last Admin: 07/18/21 13:02 Dose: Not Given Documented by: Heparin Sodium (Porcine) (Heparin Sodium 100 Units/Ml 5 Ml Syringe) 300 units FLUSH Q8H [facility] Last Admin: 07/18/21 10:18 Dose: 300 units Documented by: Hydroxyzine HCl (Hydroxyzine Hcl 25 Mg Tab) 25 mg PO Q6HR PRN PRN Reason: Nausea Last Admin: 07/18/21 10:19 Dose: 25 mg Documented by: Cefazolin Sodium/Dextrose 2 gm (/ Premix) 50 mls @ 100 mls/hr IV Q8H [facility] Stop: 07/20/21 18:01 Last Admin: 07/18/21 10:15 Dose: 100 mls/hr Documented by: Lactobacillus Rhamnosus (Lactobacillus Rhamnosus Gg (Probiotic) Cap) 1 cap PO 1200 AVTAR Last Admin: 07/18/21 13:01 Dose: Not Given Documented by: Lactulose (Lactulose Soln 10 Gm/15 Ml 30 Ml Ud Cup) 20 gm PO BID PRN PRN Reason: Other Lactulose (Lactulose Soln 10 Gm/15 Ml 30 Ml Ud Cup) 10 gm PO 0800,1400 [facility] Last Admin: 07/18/21 07:51 Dose: Not Given Documented by: Lidocaine (Lidocaine 4% 1 Each Patch) 2 each TOP DAILY [facility] Last Admin: 07/18/21 07:46 Dose: 2 each Documented by: Loperamide HCl (Loperamide 2 Mg Tab) 2 mg PO ASDIRECTED [facility] Magnesium Oxide (Magnesium Oxide 400 Mg Tab) 800 mg PO BID [facility] Last Admin: 07/18/21 07:46 Dose: 800 mg Documented by: Metformin HCl (Metformin 500 Mg Tab) 500 mg PO TIDMEALS [facility] Last Admin: 07/18/21 13:01 Dose: Not Given Documented by: Miscellaneous Information (Remove Patch Lidocaine Patches) 2 ea TRDERM DAILY@1999 [facility] Last Admin: 07/17/21 19:58 Dose: 2 ea Documented by: Multivitamins/Minerals/Vitamin C (Multivitamin Tab) 1 tab PO 1200 [facility] Last Admin: 07/18/21 13:02 Dose: Not Given Documented by: Omeprazole (Omeprazole 20 Mg Cap.Cr) 40 mg PO BIDMEALS [facility] Last Admin: 07/18/21 07:47 Dose: 40 mg Documented by: Ondansetron HCl (Ondansetron 4 Mg Tab.Dis) 4 mg PO Q6H PRN PRN Reason: Nausea/Vomiting Last Admin: 07/18/21 10:19 Dose: 4 mg Documented by: Oxycodone HCl (Oxycodone 5 Mg Tab) 5 mg PO Q6H PRN PRN Reason: Pain Last Admin: 07/18/21 10:18 Dose: 5 mg Documented by: Polysaccharide Iron Complex (Iron Polysaccharides Complex 150 Mg Cap) 150 mg PO Q48H [facility] Last Admin: 07/18/21 13:01 Dose: Not Given Documented by: Potassium Chloride (Potassium Chloride 20 Meq Tab.Er) 40 meq PO 1200 [facility] Last Admin: 07/18/21 13:02 Dose: Not Given Documented by: Pramipexole Dihydrochloride (Pramipexole 0.5 Mg Tab) 0.5 mg PO QPM [facility] Last Admin: 07/17/21 18:13 Dose: 0.5 mg Documented by: Pramipexole Dihydrochloride (Pramipexole 0.125 Mg Tab) 0.25 mg PO DAILY [facility] Last Admin: 07/18/21 07:45 Dose: 0.25 mg Documented by: Primidone (Primidone 50 Mg Tab) 50 mg PO BID [facility] Last Admin: 07/18/21 07:45 Dose: 50 mg Documented by: Simethicone (Simethicone 125 Mg Tab.Chew) 125 mg PO TID [facility] Last Admin: 07/18/21 13:02 Dose: Not Given Documented by: Sodium Chloride (Sodium Chloride 0.9% 10 Ml Syringe) 10 ml FLUSH Q8H [facility] Last Admin: 07/18/21 10:17 Dose: 10 ml Documented by: Sodium Chloride (Sodium Chloride 0.9% 10 Ml Syringe) 10 ml FLUSH Q8H [facility] Last Admin: 07/18/21 10:15 Dose: 10 ml Documented by: Spironolactone (Spironolactone 25 Mg Tab) 150 mg PO DAILY [facility] Last Admin: 07/18/21 07:49 Dose: 150 mg Documented by: Tamsulosin HCl (Tamsulosin 0.4 Mg Cap.Er) 0.4 mg PO BEDTIME [facility] Last Admin: 07/17/21 19:58 Dose: 0.4 mg Documented by: Trazodone HCl (Trazodone 50 Mg Tab) 25 mg PO BEDTIME PRN PRN Reason: Insomnia Last Admin: 07/12/21 00:04 Dose: 25 mg Documented by: Discontinued Medications Acetaminophen (Acetaminophen 650 Mg Tab.Er) 325 mg PO Q6HR PRN PRN Reason: Pain Last Admin: 07/04/21 23:04 Dose: 325 mg Documented by: Aspirin (Aspirin 81 Mg Tab.Ec) 81 mg PO DAILY [facility] Last Admin: 07/13/21 07:33 Dose: 81 mg Documented by: COVID-19 Vaccine mRNA LNP-S (MOD) (PF) (Covid-19 Vacc,Mrna(Moderna)/Pf 100 Mcg/0.5 Ml - 7.5 Ml Mdv) 50 mcg IM .ONCE ONE Stop: 07/12/21 11:01 Last Admin: 07/12/21 12:02 Dose: 50 mcg Documented by: Cyanocobalamin (Cyanocobalamin (Vitamin B12) 250 Mcg Tab) 250 mcg PO DAILY [facility] Last Admin: 07/13/21 07:33 Dose: 250 mcg Documented by: Gabapentin (Gabapentin 100 Mg Cap) 100 mg PO TID [facility] Last Admin: 07/03/21 18:07 Dose: 100 mg Documented by: Gabapentin (Gabapentin 300 Mg Cap) 300 mg PO TID [facility] Last Admin: 07/08/21 12:06 Dose: 300 mg Documented by: Heparin Sodium (Porcine) (Heparin Sodium 100 Units/Ml 5 Ml Syringe) 300 units IVPUSH Q8H [facility] Last Admin: 07/05/21 10:28 Dose: 300 units Documented by: Heparin Sodium (Porcine) (Heparin Sodium 100 Units/Ml 5 Ml Syringe) Confirm Administered Dose 500 units .ROUTE .STK-MED ONE Stop: 07/03/21 18:59 Last Admin: 07/03/21 19:12 Dose: Not Given Documented by: Cefazolin Sodium/Dextrose (Ancef 2 Gm/50 Ml) 50 mls @ 100 mls/hr IV Q8H [facility] Magnesium Sulfate 4 gm/ Premix 100 mls @ 50 mls/hr IV ONETIME ONE Stop: 07/12/21 19:47 Last Admin: 07/12/21 18:14 Dose: 50 mls/hr Documented by: Lactobacillus Rhamnosus (Lactobacillus Rhamnosus Gg (Probiotic) Cap) 1 cap PO DAILY [facility] Last Admin: 07/13/21 07:36 Dose: 1 cap Documented by: Lactulose (Lactulose Soln 10 Gm/15 Ml 30 Ml Ud Cup) 10 gm PO TID [facility] Last Admin: 07/04/21 12:59 Dose: Not Given Documented by: Lactulose (Lactulose Soln 10 Gm/15 Ml 30 Ml Ud Cup) 10 gm PO TID@0800,1200,1600 [facility] Last Admin: 07/14/21 17:31 Dose: 10 gm Documented by: Lactulose (Lactulose Soln 10 Gm/15 Ml 30 Ml Ud Cup) 10 gm PO BID [facility] Last Admin: 07/15/21 18:21 Dose: Not Given Documented by: Lidocaine (Lidocaine 4% 1 Each Patch) 1 each TOP QID PRN PRN Reason: Pain Lidocaine (Lidocaine 4% 1 Each Patch) 1 each TOP DAILY [facility] Last Admin: 07/08/21 08:25 Dose: Not Given Documented by: Lidocaine (Lidocaine 4% 1 Each Patch) 1 each TOP DAILY [facility] Last Admin: 07/08/21 08:25 Dose: Not Given Documented by: Lidocaine (Lidocaine 4% 1 Each Patch) 2 each TOP DAILY@1999 [facility] Last Admin: 07/16/21 20:19 Dose: 2 each Documented by: Lidocaine (Lidocaine 4% 1 Each Patch) 2 each TOP DAILY@1999 [facility] Magnesium Oxide (Magnesium Oxide 400 Mg Tab) 400 mg PO BID [facility] Last Admin: 07/05/21 08:13 Dose: 400 mg Documented by: Miscellaneous Information (Remove Patch *Lidocane Patch #1*) 1 ea TRDERM BEDTIME [facility] Last Admin: 07/07/21 21:50 Dose: 1 ea Documented by: Miscellaneous Information (Remove Patch *Lidocane Patch #2*) 1 ea TRDERM BEDTIM E [facility] Last Admin: 07/07/21 21:50 Dose: 1 ea Documented by: Miscellaneous Information (Remove Patch Lidocaine Patches) 2 ea TRDERM DAILY [facility] Last Admin: 07/17/21 08:51 Dose: 2 ea Documented by: Multivitamins/Minerals/Vitamin C (Multivitamin Tab) 1 tab PO DAILY [facility] Last Admin: 07/13/21 07:35 Dose: 1 tab Documented by: Non-Formulary Medication (Cefazolin [Ancef In Ns 2 Gm/100 Ml]) 2 gm IV Q8HR [facility] Nystatin (Nystatin Topical Powder 15 Gm Bottle) 1 gm TOP Q12HR [facility] Last Admin: 07/13/21 07:37 Dose: Not Given Documented by: Oxycodone HCl (Oxycodone 5 Mg Tab) 5 mg PO Q4HR PRN PRN Reason: Pain Last Admin: 07/08/21 11:18 Dose: 5 mg Documented by: Polysaccharide Iron Complex (Iron Polysaccharides Complex 150 Mg Cap) 150 mg PO Q48H [facility] Last Admin: 07/13/21 07:34 Dose: 150 mg Documented by: Potassium Chloride (Potassium Chloride 20 Meq Tab.Er) 40 meq PO DAILY [facility] Last Admin: 07/13/21 07:35 Dose: 40 meq Documented by: Simethicone (Simethicone 80 Mg Tab.Chew) 80 mg PO TID [facility] Last Admin: 07/10/21 12:39 Dose: 80 mg Documented by: Simethicone (Simethicone 80 Mg Tab.Chew) 80 mg PO ONETIME ONE Stop: 07/05/21 18:10 Last Admin: 07/05/21 19:38 Dose: 80 mg Documented by: Sodium Chloride (Sodium Chloride 0.9% 10 Ml Syringe) 10 ml IV Q8H [facility] Last Admin: 07/05/21 10:28 Dose: 10 ml Documented by: Sodium Chloride (Sodium Chloride 0.9% 10 Ml Syringe) 10 ml IV Q8H [facility] Last Admin: 07/05/21 10:28 Dose: 10 ml Documented by: Tamsulosin HCl (Tamsulosin 0.4 Mg Cap.Er) 0.4 mg PO DAILY [facility] Last Admin: 07/13/21 07:35 Dose: 0.4 mg Documented by:
== END 2021-07-18 16:03 | disposition home health service (06) | DRG 872 ==
LOC: LL.MS 07-03 14:28
PROVIDERS: ADMIT Nurse Practitioner Family; ATTEND Nurse Practitioner Family
DX: A41.1 Sepsis due to other specified staphylococcus (principal); I13.0 Hypertensive heart and chronic kidney disease with heart failure and stage 1 through stage 4 chronic kidney disease, or unspecified chronic kidney disease; N17.9 Acute kidney failure, unspecified; I50.32 Chronic diastolic (congestive) heart failure; R53.81 Other malaise; D50.0 Iron deficiency anemia secondary to blood loss (chronic); K72.90 Hepatic failure, unspecified without coma; E88.09 Other disorders of plasma-protein metabolism, not elsewhere classified; E11.42 Type 2 diabetes mellitus with diabetic polyneuropathy; N40.0 Benign prostatic hyperplasia without lower urinary tract symptoms; H54.7 Unspecified visual loss; E78.00 Pure hypercholesterolemia, unspecified; M54.2 Cervicalgia; M19.90 Unspecified osteoarthritis, unspecified site; F41.9 Anxiety disorder, unspecified; F32.A Depression, unspecified; E66.01 Morbid (severe) obesity due to excess calories; Z96.653 Presence of artificial knee joint, bilateral; K70.31 Alcoholic cirrhosis of liver with ascites; D63.1 Anemia in chronic kidney disease; E83.42 Hypomagnesemia; E87.6 Hypokalemia; N18.32 Chronic kidney disease, stage 3b; K75.81 Nonalcoholic steatohepatitis (NASH); Z88.0 Allergy status to penicillin; Z88.8 Allergy status to other drugs, medicaments and biological substances; Z79.84 Long term (current) use of oral hypoglycemic drugs; Z79.899 Other long term (current) drug therapy; I25.2 Old myocardial infarction; Z90.49 Acquired absence of other specified parts of digestive tract
CPT/HCPCS: 0064A; 36415; 80048; 80053; 81001; 82140; 82947; 83735; 85025; 85652; 86140; 97110-GO; 97161-GP; 97165-GO; 97530-GO; 97530-GP; 97535-GO; A9270-GY; J0690; J1642; J3475

== ENCOUNTER 2023-04-12 11:26 | Emergency (ER) | payer MEDICARE, BC ==
[2023-04-12 11:37] VITALS: BP 167/95; PULSE 83
[2023-04-12 11:57] LABS: BASOPHILS ABSOLUTE AUTO 0.05 K/uL (0.00-0.20); BASOPHILS PERCENT AUTO 0.5 % (0.0-2.0); EOSINOPHILS ABSOLUTE AUTO 0.15 K/uL (0.00-0.50); EOSINOPHILS PERCENT AUTO 1.5 % (0.0-5.0); HEMATOCRIT 41.4 % (39.0-49.0); HEMOGLOBIN 13.6 g/dL (13.1-16.8); LYMPHOCYTES ABSOLUTE AUTO 1.67 K/uL (0.50-3.50); MEAN CORPUSCULAR HGB CONC 32.9 g/dL (31.7-36.0); MEAN CORPUSCULAR VOLUME 94.3 fL (84.0-98.0); MONOCYTES ABSOLUTE AUTO 0.57 K/uL (0.00-1.00); MONOCYTES PERCENT AUTO 5.8 % (2.0-14.0); NEUTROPHILS ABSOLUTE AUTO 7.36 K/uL (1.40-7.00); NEUTROPHILS PERCENT AUTO 75.2 % (45.0-80.0); PLATELET COUNT,PLT 296 K/uL (150-350); RED BLOOD CELL COUNT 4.39 M/uL (4.33-5.41); RED CELL DISTRIBUTION WIDTH 15.1 % (11.2-14.1); WHITE BLOOD CELL COUNT,WBC 9.8 K/uL (4.0-10.2)
[2023-04-12 11:57] LABS: APPEARANCE,URINE CLEAR; BILIRUBIN,URINE NEGATIVE (NEGATIVE); COLOR,URINE YELLOW; GLUCOSE,URINE NEGATIVE (NEGATIVE); KETONES,URINE NEGATIVE (NEGATIVE); LEUKOCYTE ESTERASE,URINE NEGATIVE (NEGATIVE); NITRITE,URINE NEGATIVE (NEGATIVE); OCCULT BLOOD,URINE TRACE-INTACT (NEGATIVE); PROTEIN,URINE 100 mg/dL (NEGATIVE); UROBILINOGEN,URINE 0.2 E.U./dL (0.2-1.0)
[2023-04-12 12:13] LABS: BACTERIA,URINE NOT SEEN /HPF (NONE TO FEW); EPITHELIAL CELLS,URINE NOT SEEN /LPF; MUCUS,URINE NOT SEEN /LPF (NEGATIVE); RBC,URINE 0-5 /HPF; WBC,URINE NOT SEEN /HPF
[2023-04-12 12:21] LABS: ALBUMIN 2.9 g/dL (3.4-5.0); ANION GAP 8.4 meq/L (7-15); BILIRUBIN TOTAL 0.3 mg/dL (0.2-1.0); CALCIUM 8.6 mg/dL (8.5-10.1); CARBON DIOXIDE,CO2 29.6 mmol/L (21.0-32.0); CREATININE 1.34 mg/dL (0.51-1.17); EST CRCL DRUG DOSING (CG) 58.71 mL/min; POTASSIUM,K 4.8 mmol/L (3.5-5.1); PROTEIN TOTAL,TP 7.2 g/dL (6.4-8.2)
[2023-04-12] MEDS ORDERED: cefTRIAXone 1 GM, Lidocaine 1% 1.2 ML IM ONE ×2 (12:30)
[2023-04-12] MEDS ORDERED: Take Home: Clindamycin HCl 150 MG, 12 Cap Pack PO ONE (12:32)
== END 2023-04-12 13:09 | disposition home or self-care (01) ==
LOC: LL.ED 11:26
DX: T81.49XA Infection following a procedure, other surgical site, initial encounter (principal); I12.9 Hypertensive chronic kidney disease with stage 1 through stage 4 chronic kidney disease, or unspecified chronic kidney disease; E11.22 Type 2 diabetes mellitus with diabetic chronic kidney disease; N18.9 Chronic kidney disease, unspecified; E78.00 Pure hypercholesterolemia, unspecified; K21.9 Gastro-esophageal reflux disease without esophagitis; I25.2 Old myocardial infarction; I25.10 Atherosclerotic heart disease of native coronary artery without angina pectoris; E66.9 Obesity, unspecified; Z68.41 Body mass index [BMI] 40.0-44.9, adult; Z79.899 Other long term (current) drug therapy; Z79.84 Long term (current) use of oral hypoglycemic drugs; Z88.8 Allergy status to other drugs, medicaments and biological substances; Z88.5 Allergy status to narcotic agent
CPT/HCPCS: 36415; 80053; 81001; 85025; 87070; 87186; 87205; 96372; 99283; 99284; A9270-GY; J0696; J3490

== ENCOUNTER 2023-07-27 19:33 | Emergency (ER) | payer MEDICARE, BC ==
[2023-07-27 20:00] LABS: BASOPHILS ABSOLUTE AUTO 0.01 K/uL (0.00-0.20); BASOPHILS PERCENT AUTO 0.1 % (0.0-2.0); EOSINOPHILS ABSOLUTE AUTO 0.02 K/uL (0.00-0.50); EOSINOPHILS PERCENT AUTO 0.2 % (0.0-5.0); HEMOGLOBIN 12.9 g/dL (13.1-16.8); LYMPHOCYTES ABSOLUTE AUTO 0.62 K/uL (0.50-3.50); MEAN CORPUSCULAR HEMOGLOBIN 30.4 pg (28.2-33.3); MEAN CORPUSCULAR HGB CONC 32.3 g/dL (31.7-36.0); MEAN CORPUSCULAR VOLUME 94.3 fL (84.0-98.0); MONOCYTES ABSOLUTE AUTO 0.65 K/uL (0.00-1.00); MONOCYTES PERCENT AUTO 5.2 % (2.0-14.0); NEUTROPHILS PERCENT AUTO 89.5 % (45.0-80.0); PLATELET COUNT,PLT 178 K/uL (150-350); RED BLOOD CELL COUNT 4.24 M/uL (4.33-5.41); RED CELL DISTRIBUTION WIDTH 15.3 % (11.2-14.1); WHITE BLOOD CELL COUNT,WBC 12.4 K/uL (4.0-10.2)
[2023-07-27 20:17] LABS: ALANINE AMINOTRANSFERASE,ALT 16 U/L (12-78); ALKALINE PHOSPHATASE 111 IU/L (46-116); ANION GAP 10.4 meq/L (7-15); ASPARTATE AMNIOTRANSFERASE,AST 14 U/L (15-37); BILIRUBIN TOTAL 0.4 mg/dL (0.2-1.0); BLOOD UREA NITROGEN,BUN 18 mg/dL (7-18); CALCIUM 7.9 mg/dL (8.5-10.1); CARBON DIOXIDE,CO2 26.6 mmol/L (21.0-32.0); CHLORIDE,CL 101 mmol/L (98-107); CREATININE 1.54 mg/dL (0.51-1.17); ESTIMATED GFR 49 mL/min (>=60); GLUCOSE RANDOM 153 mg/dL (70-99); POTASSIUM,K 3.9 mmol/L (3.5-5.1); PROTEIN TOTAL,TP 6.8 g/dL (6.4-8.2); SODIUM,NA 138 mmol/L (136-145)
[2023-07-27 20:22] LABS: INR 1.1 (0.9-1.1)
[2023-07-27 20:36] LABS: CORONAVIRUS COVID-19 NAA NEGATIVE (NEGATIVE); INFLUENZA A NAA NEGATIVE (NEGATIVE); INFLUENZA B NAA NEGATIVE (NEGATIVE); RESPIRATORY SYNCYTIAL VIR NAA NEGATIVE (NEGATIVE)
[2023-07-27 22:39] VITALS: BP 135/74; PULSE 93
[2023-07-28] MEDS: Acetaminophen 325 MG Tab PO ONE (05:20)
[2023-07-28 06:59] LABS: APPEARANCE,URINE CLEAR; BILIRUBIN,URINE NEGATIVE (NEGATIVE); COLOR,URINE YELLOW; GLUCOSE,URINE NEGATIVE (NEGATIVE); KETONES,URINE TRACE mg/dL (NEGATIVE); LEUKOCYTE ESTERASE,URINE NEGATIVE (NEGATIVE); NITRITE,URINE NEGATIVE (NEGATIVE); PROTEIN,URINE >=300 mg/dL (NEGATIVE); UROBILINOGEN,URINE 0.2 E.U./dL (0.2-1.0)
[2023-07-28 07:12] LABS: OCCULT BLOOD,URINE TRACE-INTACT (NEGATIVE)
[2023-07-28 07:13] LABS: BACTERIA,URINE NOT SEEN /HPF (NONE TO FEW); EPITHELIAL CELLS,URINE NOT SEEN /LPF; RBC,URINE 0-5 /HPF; WBC,URINE 0-5 /HPF
== END 2023-07-27 22:00 | disposition home or self-care (01) ==
LOC: LL.ED 19:33
DX: J06.9 Acute upper respiratory infection, unspecified (principal); I13.0 Hypertensive heart and chronic kidney disease with heart failure and stage 1 through stage 4 chronic kidney disease, or unspecified chronic kidney disease; I50.9 Heart failure, unspecified; N18.9 Chronic kidney disease, unspecified; I25.10 Atherosclerotic heart disease of native coronary artery without angina pectoris; I25.2 Old myocardial infarction; K21.9 Gastro-esophageal reflux disease without esophagitis; E11.21 Type 2 diabetes mellitus with diabetic nephropathy; E11.22 Type 2 diabetes mellitus with diabetic chronic kidney disease; E78.00 Pure hypercholesterolemia, unspecified; E11.42 Type 2 diabetes mellitus with diabetic polyneuropathy; E66.9 Obesity, unspecified; Z79.84 Long term (current) use of oral hypoglycemic drugs; Z20.822 Contact with and (suspected) exposure to COVID-19; Z79.899 Other long term (current) drug therapy; Z88.0 Allergy status to penicillin; Z88.8 Allergy status to other drugs, medicaments and biological substances
CPT/HCPCS: 0241U; 36415; 71045; 80053; 81001; 83880; 85025; 85610; 99284

== ENCOUNTER 2024-03-14 02:15 | Emergency (ER) | payer MEDICARE, BC ==
[2024-03-14 03:03] LABS: BASOPHILS ABSOLUTE AUTO 0.04 K/uL (0.00-0.20); BASOPHILS PERCENT AUTO 0.3 % (0.0-2.0); EOSINOPHILS ABSOLUTE AUTO 0.01 K/uL (0.00-0.50); EOSINOPHILS PERCENT AUTO 0.1 % (0.0-5.0); HEMATOCRIT 35.7 % (39.0-49.0); HEMOGLOBIN 11.1 g/dL (13.1-16.8); LYMPHOCYTES ABSOLUTE AUTO 1.01 K/uL (0.50-3.50); LYMPHOCYTES PERCENT AUTO 6.5 % (10.0-50.0); MEAN CORPUSCULAR HEMOGLOBIN 30.2 pg (28.2-33.3); MEAN CORPUSCULAR HGB CONC 31.1 g/dL (31.7-36.0); MEAN CORPUSCULAR VOLUME 97.3 fL (84.0-98.0); MONOCYTES ABSOLUTE AUTO 1.15 K/uL (0.00-1.00); MONOCYTES PERCENT AUTO 7.4 % (2.0-14.0); NEUTROPHILS ABSOLUTE AUTO 13.42 K/uL (1.40-7.00); NEUTROPHILS PERCENT AUTO 85.7 % (45.0-80.0); PLATELET COUNT,PLT 304 K/uL (150-350); RED BLOOD CELL COUNT 3.67 M/uL (4.33-5.41); RED CELL DISTRIBUTION WIDTH 16.5 % (11.2-14.1); WHITE BLOOD CELL COUNT,WBC 15.6 K/uL (4.0-10.2)
[2024-03-14] MEDS ORDERED: Naloxone 0.4 MG/ML SDV IVPUSH PRN (03:13)
[2024-03-14] MEDS: fentaNYL 50 MCG/ML SDV IVPUSH ONE (03:20)
[2024-03-14 03:30] LABS: ALBUMIN 2.9 g/dL (3.4-5.0); BILIRUBIN TOTAL 0.6 mg/dL (0.2-1.0); CALCIUM 8.5 mg/dL (8.5-10.1); CREATININE 1.62 mg/dL (0.51-1.17); EST CRCL DRUG DOSING (CG) 47.9 mL/min; POTASSIUM,K 4.6 mmol/L (3.5-5.1); PROTEIN TOTAL,TP 7.2 g/dL (6.4-8.2)
[2024-03-14 03:30] LABS: PROTHROMBIN TIME 10.4 SEC (9.0-11.1)
[2024-03-14 04:34] LABS: APPEARANCE,URINE CLEAR; BILIRUBIN,URINE NEGATIVE (NEGATIVE); COLOR,URINE YELLOW; GLUCOSE,URINE NEGATIVE (NEGATIVE); KETONES,URINE NEGATIVE (NEGATIVE); LEUKOCYTE ESTERASE,URINE NEGATIVE (NEGATIVE); NITRITE,URINE NEGATIVE (NEGATIVE); OCCULT BLOOD,URINE NEGATIVE (NEGATIVE); PH,URINE 8.5 (5.0-9.0); PROTEIN,URINE >=300 mg/dL (NEGATIVE)
[2024-03-14 04:35] LABS: AMORPHOUS SEDIMENT,URINE RARE /HPF (0/HPF); BACTERIA,URINE NOT SEEN /HPF (NONE TO FEW); EPITHELIAL CELLS,URINE OCCASIONAL /LPF; MUCUS,URINE NOT SEEN /LPF (NEGATIVE); RBC,URINE 0-5 /HPF; WBC,URINE 0-5 /HPF
[2024-03-14] MEDS: Sodium Chloride 0.9% 10 ML Syringe FLUSH PRN (04:41)
[2024-03-14] MEDS: Furosemide 40 MG/4 ML VIAL IVPUSH ONE (04:42)
[2024-03-14] MEDS: Calcium Carbonate 750 MG Tab.Chew PO PRN (04:42)
[2024-03-14] MEDS: fentaNYL 50 MCG/ML SDV IVPUSH PRN (05:23)
[2024-03-14] MEDS: Lactated Ringers 1,000 ML IV SCH (09:13)
[2024-03-14 13:51] LABS: BASOPHILS ABSOLUTE AUTO 0.04 K/uL (0.00-0.20); BASOPHILS PERCENT AUTO 0.3 % (0.0-2.0); EOSINOPHILS ABSOLUTE AUTO 0.01 K/uL (0.00-0.50); EOSINOPHILS PERCENT AUTO 0.1 % (0.0-5.0); HEMATOCRIT 36.9 % (39.0-49.0); HEMOGLOBIN 11.3 g/dL (13.1-16.8); LYMPHOCYTES ABSOLUTE AUTO 1.48 K/uL (0.50-3.50); LYMPHOCYTES PERCENT AUTO 11.7 % (10.0-50.0); MEAN CORPUSCULAR HEMOGLOBIN 29.4 pg (28.2-33.3); MEAN CORPUSCULAR HGB CONC 30.6 g/dL (31.7-36.0); MEAN CORPUSCULAR VOLUME 96.1 fL (84.0-98.0); MONOCYTES ABSOLUTE AUTO 1.44 K/uL (0.00-1.00); MONOCYTES PERCENT AUTO 11.4 % (2.0-14.0); NEUTROPHILS ABSOLUTE AUTO 9.66 K/uL (1.40-7.00); NEUTROPHILS PERCENT AUTO 76.5 % (45.0-80.0); PLATELET COUNT,PLT 311 K/uL (150-350); RED BLOOD CELL COUNT 3.84 M/uL (4.33-5.41); RED CELL DISTRIBUTION WIDTH 16.2 % (11.2-14.1); WHITE BLOOD CELL COUNT,WBC 12.6 K/uL (4.0-10.2)
[2024-03-14] MEDS: Acetaminophen 650 MG Tab.ER PO PRN (13:56)
[2024-03-14 14:19] LABS: ANION GAP 7.8 meq/L (7-15); CALCIUM 8.6 mg/dL (8.5-10.1); CARBON DIOXIDE,CO2 30.2 mmol/L (21.0-32.0); CREATININE 1.66 mg/dL (0.51-1.17); EST CRCL DRUG DOSING (CG) 46.75 mL/min; POTASSIUM,K 3.9 mmol/L (3.5-5.1)
[2024-03-14] MEDS ORDERED: Furosemide 40 MG/4 ML VIAL IVPUSH ONE (14:30)
[2024-03-14 15:00] VITALS: BP 117/64; PULSE 84
== END 2024-03-14 15:30 ==
LOC: LL.ED 02:15
DX: R06.02 Shortness of breath (principal); R53.1 Weakness; M25.512 Pain in left shoulder; G89.29 Other chronic pain; R79.89 Other specified abnormal findings of blood chemistry; I13.0 Hypertensive heart and chronic kidney disease with heart failure and stage 1 through stage 4 chronic kidney disease, or unspecified chronic kidney disease; N18.9 Chronic kidney disease, unspecified; I50.9 Heart failure, unspecified; I25.10 Atherosclerotic heart disease of native coronary artery without angina pectoris; E78.00 Pure hypercholesterolemia, unspecified; I25.2 Old myocardial infarction; K21.9 Gastro-esophageal reflux disease without esophagitis; E11.40 Type 2 diabetes mellitus with diabetic neuropathy, unspecified; E11.21 Type 2 diabetes mellitus with diabetic nephropathy; Z88.8 Allergy status to other drugs, medicaments and biological substances; Z88.0 Allergy status to penicillin; Z79.84 Long term (current) use of oral hypoglycemic drugs; Z79.899 Other long term (current) drug therapy; Z79.82 Long term (current) use of aspirin; Z90.49 Acquired absence of other specified parts of digestive tract
CPT/HCPCS: 36415; 71045; 80048; 80053; 81001; 82947; 83605; 83880; 84484; 85025; 85610; 93005; 96361; 96374; 96375; 96376; 99285-25; A9270-GY; J1940; J3010; J3490; J7120; U0002

== ENCOUNTER 2024-04-08 14:25 | Emergency (ER) | payer MEDICARE, BC ==
[2024-04-08 15:00] LABS: BASOPHILS ABSOLUTE AUTO 0.02 K/uL (0.00-0.20); BASOPHILS PERCENT AUTO 0.3 % (0.0-2.0); EOSINOPHILS ABSOLUTE AUTO 0.23 K/uL (0.00-0.50); EOSINOPHILS PERCENT AUTO 3.4 % (0.0-5.0); HEMATOCRIT 32.1 % (39.0-49.0); HEMOGLOBIN 9.5 g/dL (13.1-16.8); LYMPHOCYTES ABSOLUTE AUTO 1.28 K/uL (0.50-3.50); LYMPHOCYTES PERCENT AUTO 18.7 % (10.0-50.0); MEAN CORPUSCULAR HEMOGLOBIN 28.4 pg (28.2-33.3); MEAN CORPUSCULAR HGB CONC 29.6 g/dL (31.7-36.0); MEAN CORPUSCULAR VOLUME 95.8 fL (84.0-98.0); MONOCYTES ABSOLUTE AUTO 0.64 K/uL (0.00-1.00); MONOCYTES PERCENT AUTO 9.4 % (2.0-14.0); NEUTROPHILS ABSOLUTE AUTO 4.67 K/uL (1.40-7.00); NEUTROPHILS PERCENT AUTO 68.2 % (45.0-80.0); PLATELET COUNT,PLT 209 K/uL (150-350); RED BLOOD CELL COUNT 3.35 M/uL (4.33-5.41); RED CELL DISTRIBUTION WIDTH 16.8 % (11.2-14.1); WHITE BLOOD CELL COUNT,WBC 6.8 K/uL (4.0-10.2)
[2024-04-08 15:27] LABS: ALBUMIN 2.7 g/dL (3.4-5.0); ANION GAP 8.8 meq/L (7-15); BILIRUBIN TOTAL 0.4 mg/dL (0.2-1.0); CALCIUM 7.8 mg/dL (8.5-10.1); CARBON DIOXIDE,CO2 26.2 mmol/L (21.0-32.0); CREATININE 1.71 mg/dL (0.51-1.17); EST CRCL DRUG DOSING (CG) 45.38 mL/min; POTASSIUM,K 4.4 mmol/L (3.5-5.1); PROTEIN TOTAL,TP 6.4 g/dL (6.4-8.2)
[2024-04-08 16:58] VITALS: PULSE 63
[2024-04-08] MEDS: Acetaminophen/HYDROcodone 325-5 MG Tab PO ONE (18:03)
[2024-04-08] MEDS: rOPINIRole 1 MG Tab PO ONE (18:04)
[2024-04-08] MEDS: Furosemide 40 MG/4 ML VIAL IVPUSH ONE (18:05)
[2024-04-08 19:05] VITALS: BP 156/94
== END 2024-04-08 18:33 ==
LOC: LL.ED 14:25 → LL.MS 17:03 → UNDOADMIN 17:03
DX: I13.0 Hypertensive heart and chronic kidney disease with heart failure and stage 1 through stage 4 chronic kidney disease, or unspecified chronic kidney disease (principal); I50.9 Heart failure, unspecified; N18.9 Chronic kidney disease, unspecified; I25.2 Old myocardial infarction; E78.00 Pure hypercholesterolemia, unspecified; E66.9 Obesity, unspecified; E11.9 Type 2 diabetes mellitus without complications; Z88.0 Allergy status to penicillin; Z88.8 Allergy status to other drugs, medicaments and biological substances; Z79.82 Long term (current) use of aspirin; Z79.84 Long term (current) use of oral hypoglycemic drugs; Z79.899 Other long term (current) drug therapy; Z90.49 Acquired absence of other specified parts of digestive tract; Z68.41 Body mass index [BMI] 40.0-44.9, adult
CPT/HCPCS: 36415; 71046; 80053; 83605; 83735; 83880; 84484; 85025; 85379; 93005; 99285; A9270

== ENCOUNTER 2024-04-10 18:15 | Emergency (ER) | payer MEDICARE, BC ==
[2024-04-10] MEDS ORDERED: Sodium Chloride 0.9% 10 ML Syringe FLUSH PRN (18:23)
[2024-04-10 18:35] LABS: BASOPHILS ABSOLUTE AUTO 0.03 K/uL (0.00-0.20); BASOPHILS PERCENT AUTO 0.3 % (0.0-2.0); EOSINOPHILS ABSOLUTE AUTO 0.02 K/uL (0.00-0.50); EOSINOPHILS PERCENT AUTO 0.2 % (0.0-5.0); HEMATOCRIT 30.5 % (39.0-49.0); HEMOGLOBIN 9.3 g/dL (13.1-16.8); LYMPHOCYTES ABSOLUTE AUTO 0.86 K/uL (0.50-3.50); LYMPHOCYTES PERCENT AUTO 7.8 % (10.0-50.0); MEAN CORPUSCULAR HEMOGLOBIN 28.3 pg (28.2-33.3); MEAN CORPUSCULAR HGB CONC 30.5 g/dL (31.7-36.0); MEAN CORPUSCULAR VOLUME 92.7 fL (84.0-98.0); MONOCYTES ABSOLUTE AUTO 1.04 K/uL (0.00-1.00); MONOCYTES PERCENT AUTO 9.5 % (2.0-14.0); NEUTROPHILS ABSOLUTE AUTO 9.01 K/uL (1.40-7.00); NEUTROPHILS PERCENT AUTO 82.2 % (45.0-80.0); PLATELET COUNT,PLT 235 K/uL (150-350); RED BLOOD CELL COUNT 3.29 M/uL (4.33-5.41); RED CELL DISTRIBUTION WIDTH 17.3 % (11.2-14.1)
[2024-04-10 19:05] LABS: ALBUMIN 2.6 g/dL (3.4-5.0); ANION GAP 7.8 meq/L (7-15); BILIRUBIN TOTAL 0.5 mg/dL (0.2-1.0); CALCIUM 7.6 mg/dL (8.5-10.1); CARBON DIOXIDE,CO2 28.2 mmol/L (21.0-32.0); CREATININE 2.04 mg/dL (0.51-1.17); EST CRCL DRUG DOSING (CG) 38.04 mL/min; POTASSIUM,K 4.8 mmol/L (3.5-5.1); PROTEIN TOTAL,TP 6.5 g/dL (6.4-8.2)
[2024-04-10 19:12] LABS: CORONAVIRUS COVID-19 NAA NEGATIVE (NEGATIVE); INFLUENZA A NAA NEGATIVE (NEGATIVE); INFLUENZA B NAA NEGATIVE (NEGATIVE); RESPIRATORY SYNCYTIAL VIR NAA NEGATIVE (NEGATIVE)
[2024-04-10] MEDS: Acetaminophen/HYDROcodone 325-5 MG Tab PO ONE (19:25)
[2024-04-10] MEDS: rOPINIRole 1 MG Tab PO ONE (19:25)
[2024-04-10] MEDS: cefTRIAXone 2 GM in Sodium Chloride 0.9% 100 ML IV ONE (19:39)
[2024-04-10] MEDS: Vancomycin 2 GM in Sodium Chloride 0.9% 500 ML IV ONE (20:07)
[2024-04-10] MEDS: Sodium Chloride 0.9% 1,000 ML IV ONE (20:09)
[2024-04-10 20:43] VITALS: PULSE 73
[2024-04-10 20:44] VITALS: BP 172/85
== END 2024-04-10 20:30 ==
LOC: LL.ED 18:15
DX: J18.9 Pneumonia, unspecified organism (principal); J90 Pleural effusion, not elsewhere classified; I13.0 Hypertensive heart and chronic kidney disease with heart failure and stage 1 through stage 4 chronic kidney disease, or unspecified chronic kidney disease; I50.9 Heart failure, unspecified; N18.9 Chronic kidney disease, unspecified; E11.40 Type 2 diabetes mellitus with diabetic neuropathy, unspecified; I25.10 Atherosclerotic heart disease of native coronary artery without angina pectoris; I25.2 Old myocardial infarction; E78.00 Pure hypercholesterolemia, unspecified; I48.91 Unspecified atrial fibrillation; E11.22 Type 2 diabetes mellitus with diabetic chronic kidney disease; E66.9 Obesity, unspecified; Z88.8 Allergy status to other drugs, medicaments and biological substances; Z79.899 Other long term (current) drug therapy; Z79.82 Long term (current) use of aspirin; Z68.42 Body mass index [BMI] 45.0-49.9, adult
CPT/HCPCS: 0241U; 36415; 71045; 80053; 83605; 83735; 83880; 84484; 85025; 85379; 87040; 93005; 93010; 94761; 96365; 96367; 99284; 99285-25; A9270-GY; J0696; J3370; J3490; J7030; J7040

== ENCOUNTER 2024-04-19 13:08 | Inpatient (IN) | payer MEDICARE, BC ==
[2024-04-19] MEDS ORDERED: hydrOXYzine HCl 25 MG Tab PO PRN (13:54)
[2024-04-19] MEDS ORDERED: [UNRECOGNIZED DRUG - OTHER] TRDERM PRN (13:54)
[2024-04-19] MEDS ORDERED: Acetaminophen 325 MG Tab PO PRN (13:54)
[2024-04-19] MEDS ORDERED: Albuterol/Ipratropium 3.0-0.5 MG/3 ML Neb Soln INH PRN (13:54)
[2024-04-19] MEDS ORDERED: Metolazone 2.5 MG Tab PO PRN (14:16)
[2024-04-19] MEDS: Simethicone 125 MG Tab.Chew PO SCH (15:04)
[2024-04-19] MEDS: metFORMIN 500 MG Tab.ER PO SCH (17:16)
[2024-04-19] MEDS: Metoprolol Tartrate 25 MG Tab PO SCH (17:16)
[2024-04-19] MEDS: Primidone 50 MG Tab PO SCH (17:17)
[2024-04-19] MEDS: Omeprazole 20 MG Cap.CR PO SCH (17:18)
[2024-04-19] MEDS: Cefdinir 300 MG Cap PO SCH (17:19)
[2024-04-19] MEDS ORDERED: Fluticasone NASAL Spray 16 GM Bottle NASBOTH PRN (18:00)
[2024-04-19] MEDS: Acetaminophen/HYDROcodone 325-5 MG Tab PO PRN (18:15)
[2024-04-19] MEDS: atorvaSTATin 20 MG Tab PO SCH (19:10)
[2024-04-19] MEDS: Gabapentin 300 MG Cap PO SCH (19:11)
[2024-04-19] MEDS: rOPINIRole 1 MG Tab PO SCH (19:13)
[2024-04-19] MEDS: Melatonin 3 MG Tab PO PRN (21:34)
[2024-04-20] MEDS: Glimepiride 2 MG Tab PO SCH (07:02)
[2024-04-20] MEDS: Docusate Sodium 100 MG Cap PO SCH (07:02)
[2024-04-20] MEDS: Amiodarone 200 MG Tab PO SCH (07:03)
[2024-04-20] MEDS: Aspirin 325 MG Tab.EC PO SCH (07:04)
[2024-04-20] MEDS: Torsemide 20 MG Tab PO SCH (07:04)
[2024-04-20] MEDS: Tamsulosin 0.4 MG Cap.ER PO SCH (07:05)
[2024-04-20] MEDS: Iron Polysaccharides Complex 150 MG Cap PO SCH (07:05)
[2024-04-20] MEDS: Potassium Chloride 20 MEQ Tab.ER PO SCH (07:06)
[2024-04-20] MEDS: Polyethylene Glycol 3350 Powder 510 GM Bot PO SCH (07:07)
[2024-04-20] MEDS: Cyanocobalamin (Vitamin B12) 250 MCG Tab PO SCH (07:10)
[2024-04-20] MEDS ORDERED: Lisinopril 10 MG Tab PO SCH (08:00)
[2024-04-20] MEDS: Magnesium Oxide 400 MG Tab PO SCH (11:37)
[2024-04-20] MEDS: Ondansetron 4 MG Tab.DIS PO PRN (12:28)
[2024-04-20] MEDS: Diclofenac Sodium 1% Gel 100 GM Tube TOP PRN (17:45)
[2024-04-20] MEDS: Melatonin 3 MG Tab PO SCH (19:19)
[2024-04-20] MEDS: traZODone 50 MG Tab PO PRN (19:36)
[2024-04-21 09:20] VITALS: BP 105/70; PULSE 63
[2024-04-21 12:05] LABS: CALCIUM 8.5 mg/dL (8.5-10.1); CREATININE 1.84 mg/dL (0.51-1.17); EST CRCL DRUG DOSING (CG) 42.17 mL/min
== END 2024-04-21 13:20 | disposition home or self-care (01) | DRG 947 ==
LOC: LL.SWG 13:08
PROVIDERS: ADMIT Emergency Medicine; ATTEND Emergency Medicine
DX: R53.81 Other malaise (principal); I50.23 Acute on chronic systolic (congestive) heart failure; J96.21 Acute and chronic respiratory failure with hypoxia; I42.9 Cardiomyopathy, unspecified; I13.0 Hypertensive heart and chronic kidney disease with heart failure and stage 1 through stage 4 chronic kidney disease, or unspecified chronic kidney disease; I25.10 Atherosclerotic heart disease of native coronary artery without angina pectoris; I48.91 Unspecified atrial fibrillation; G47.30 Sleep apnea, unspecified; E11.21 Type 2 diabetes mellitus with diabetic nephropathy; N40.0 Benign prostatic hyperplasia without lower urinary tract symptoms; K21.9 Gastro-esophageal reflux disease without esophagitis; E78.00 Pure hypercholesterolemia, unspecified; I25.2 Old myocardial infarction; E66.9 Obesity, unspecified; E11.22 Type 2 diabetes mellitus with diabetic chronic kidney disease; F32.A Depression, unspecified; N18.2 Chronic kidney disease, stage 2 (mild); F41.9 Anxiety disorder, unspecified; E11.42 Type 2 diabetes mellitus with diabetic polyneuropathy; M19.90 Unspecified osteoarthritis, unspecified site; K74.60 Unspecified cirrhosis of liver; M54.2 Cervicalgia; F51.01 Primary insomnia; G89.4 Chronic pain syndrome; K58.2 Mixed irritable bowel syndrome; Z88.0 Allergy status to penicillin; Z88.8 Allergy status to other drugs, medicaments and biological substances; Z79.82 Long term (current) use of aspirin; Z79.84 Long term (current) use of oral hypoglycemic drugs; Z90.49 Acquired absence of other specified parts of digestive tract; Z90.89 Acquired absence of other organs; Z96.659 Presence of unspecified artificial knee joint; Z79.899 Other long term (current) drug therapy; Z86.010 Personal history of colon polyps; Z98.890 Other specified postprocedural states
CPT/HCPCS: 36415; 80048; 82947; 97110-GP; 97161-GP; 97165-GO; 97530-GP; A9270-GY

== ENCOUNTER 2024-05-29 09:50 | Emergency (ER) | payer MEDICARE, BC ==
[2024-05-29 09:54] VITALS: BP 134/86; PULSE 93
[2024-05-29 10:25] LABS: BASOPHILS ABSOLUTE AUTO 0.02 K/uL (0.00-0.20); BASOPHILS PERCENT AUTO 0.2 % (0.0-2.0); EOSINOPHILS ABSOLUTE AUTO 0.05 K/uL (0.00-0.50); EOSINOPHILS PERCENT AUTO 0.5 % (0.0-5.0); HEMATOCRIT 35.9 % (39.0-49.0); HEMOGLOBIN 11.1 g/dL (13.1-16.8); LYMPHOCYTES ABSOLUTE AUTO 0.72 K/uL (0.50-3.50); LYMPHOCYTES PERCENT AUTO 7.4 % (10.0-50.0); MEAN CORPUSCULAR HEMOGLOBIN 29.5 pg (28.2-33.3); MEAN CORPUSCULAR HGB CONC 30.9 g/dL (31.7-36.0); MEAN CORPUSCULAR VOLUME 95.5 fL (84.0-98.0); MONOCYTES ABSOLUTE AUTO 0.69 K/uL (0.00-1.00); MONOCYTES PERCENT AUTO 7.1 % (2.0-14.0); NEUTROPHILS ABSOLUTE AUTO 8.29 K/uL (1.40-7.00); NEUTROPHILS PERCENT AUTO 84.8 % (45.0-80.0); PLATELET COUNT,PLT 186 K/uL (150-350); RED BLOOD CELL COUNT 3.76 M/uL (4.33-5.41); RED CELL DISTRIBUTION WIDTH 19.5 % (11.2-14.1); WHITE BLOOD CELL COUNT,WBC 9.8 K/uL (4.0-10.2)
[2024-05-29 10:51] LABS: ALBUMIN 2.7 g/dL (3.4-5.0); ANION GAP 8.6 meq/L (7-15); BILIRUBIN TOTAL 0.4 mg/dL (0.2-1.0); CALCIUM 8.8 mg/dL (8.5-10.1); CARBON DIOXIDE,CO2 31.4 mmol/L (21.0-32.0); CREATININE 2.29 mg/dL (0.51-1.17); EST CRCL DRUG DOSING (CG) 30.44 mL/min; POTASSIUM,K 4.4 mmol/L (3.5-5.1); PROTEIN TOTAL,TP 6.8 g/dL (6.4-8.2)
[2024-05-29 11:04] LABS: CORONAVIRUS COVID-19 NAA NEGATIVE (NEGATIVE); INFLUENZA A NAA NEGATIVE (NEGATIVE); INFLUENZA B NAA NEGATIVE (NEGATIVE); RESPIRATORY SYNCYTIAL VIR NAA NEGATIVE (NEGATIVE)
== END 2024-05-29 11:52 | disposition home or self-care (01) ==
LOC: SUPCPDRO 09:50 → LL.ED 09:50
DX: R09.02 Hypoxemia (principal); R06.00 Dyspnea, unspecified; J44.9 Chronic obstructive pulmonary disease, unspecified; I48.91 Unspecified atrial fibrillation; I25.10 Atherosclerotic heart disease of native coronary artery without angina pectoris; I13.0 Hypertensive heart and chronic kidney disease with heart failure and stage 1 through stage 4 chronic kidney disease, or unspecified chronic kidney disease; I50.9 Heart failure, unspecified; N18.9 Chronic kidney disease, unspecified; E78.00 Pure hypercholesterolemia, unspecified; I25.2 Old myocardial infarction; K21.9 Gastro-esophageal reflux disease without esophagitis; E11.21 Type 2 diabetes mellitus with diabetic nephropathy; E11.42 Type 2 diabetes mellitus with diabetic polyneuropathy; M19.90 Unspecified osteoarthritis, unspecified site; E66.9 Obesity, unspecified; Z90.49 Acquired absence of other specified parts of digestive tract; Z68.41 Body mass index [BMI] 40.0-44.9, adult; Z79.82 Long term (current) use of aspirin; Z79.84 Long term (current) use of oral hypoglycemic drugs; Z79.899 Other long term (current) drug therapy; Z88.8 Allergy status to other drugs, medicaments and biological substances; Z88.0 Allergy status to penicillin; Z88.9 Allergy status to unspecified drugs, medicaments and biological substances
CPT/HCPCS: 0241U; 36415; 71046; 80053; 83880; 85025; 99284; 99285

== ENCOUNTER 2024-05-30 02:13 | Emergency (ER) | payer MEDICARE, BC ==
[2024-05-30] MEDS: Albuterol/Ipratropium 3.0-0.5 MG/3 ML Neb Soln NEB ONE (02:22)
[2024-05-30 02:39] VITALS: BP 128/78; PULSE 80
== END 2024-05-30 03:25 | disposition home or self-care (01) ==
LOC: LL.ED 02:13
DX: J44.9 Chronic obstructive pulmonary disease, unspecified (principal); I13.0 Hypertensive heart and chronic kidney disease with heart failure and stage 1 through stage 4 chronic kidney disease, or unspecified chronic kidney disease; I50.9 Heart failure, unspecified; N18.9 Chronic kidney disease, unspecified; R79.89 Other specified abnormal findings of blood chemistry; I25.10 Atherosclerotic heart disease of native coronary artery without angina pectoris; E78.00 Pure hypercholesterolemia, unspecified; K21.9 Gastro-esophageal reflux disease without esophagitis; E11.40 Type 2 diabetes mellitus with diabetic neuropathy, unspecified; E11.22 Type 2 diabetes mellitus with diabetic chronic kidney disease; E66.9 Obesity, unspecified; Z90.49 Acquired absence of other specified parts of digestive tract; Z99.81 Dependence on supplemental oxygen; Z79.899 Other long term (current) drug therapy; Z79.84 Long term (current) use of oral hypoglycemic drugs; Z79.82 Long term (current) use of aspirin; Z88.0 Allergy status to penicillin; Z88.8 Allergy status to other drugs, medicaments and biological substances
CPT/HCPCS: 94640; 99283; 99284; J7620-GY

== ENCOUNTER 2025-03-25 16:55 | Emergency (ER) | payer MEDICARE, BC ==
[2025-03-25 17:31] VITALS: BP 157/107; PULSE 77
[2025-03-25 17:46] LABS: BASOPHILS ABSOLUTE AUTO 0.02 K/uL (0.00-0.20); BASOPHILS PERCENT AUTO 0.3 % (0.0-2.0); EOSINOPHILS ABSOLUTE AUTO 0.38 K/uL (0.00-0.50); EOSINOPHILS PERCENT AUTO 6.1 % (0.0-5.0); IMMATURE GRAN ABSOLUTE AUTO 0.04 10^3/uL (0.00-0.04); IMMATURE GRAN PERCENT AUTO 0.6 % (0.0-0.4); LYMPHOCYTES ABSOLUTE AUTO 1.34 K/uL (0.50-3.50); LYMPHOCYTES PERCENT AUTO 21.6 % (10.0-50.0); MONOCYTES ABSOLUTE AUTO 0.36 K/uL (0.00-1.00); MONOCYTES PERCENT AUTO 5.8 % (2.0-14.0); NEUTROPHILS ABSOLUTE AUTO 4.05 K/uL (1.40-7.00); NEUTROPHILS PERCENT AUTO 65.6 % (45.0-80.0); PLATELET COUNT,PLT 154 K/uL (150-350); RED BLOOD CELL COUNT 4.06 M/uL (4.33-5.41); RED CELL DISTRIBUTION WIDTH 15.7 % (11.2-14.1); WHITE BLOOD CELL COUNT,WBC 6.2 K/uL (4.0-10.2)
[2025-03-25 17:50] LABS: BILIRUBIN TOTAL 0.6 mg/dL (0.2-1.0); CARBON DIOXIDE,CO2 30.7 mmol/L (21.0-32.0); GLUCOSE RANDOM 141 mg/dL (70-99); PRO B-TYPE NATRIUR PEPT,BNPPRO 2324 pg/mL (0-125); PROTEIN TOTAL,TP 7.0 g/dL (6.4-8.2)
[2025-03-25 18:03] LABS: INR 1.0 (0.9-1.1)
[2025-03-25 18:05] LABS: ALANINE AMINOTRANSFERASE,ALT 6 U/L (12-78); ASPARTATE AMNIOTRANSFERASE,AST 29 U/L (15-37); CHLORIDE,CL 102 mmol/L (98-107); POTASSIUM,K 4.8 mmol/L (3.5-5.1); SODIUM,NA 141 mmol/L (136-145)
[2025-03-25 18:14] LABS: CREATININE 1.69 mg/dL (0.51-1.17)
[2025-03-25 18:27] LABS: ESTIMATED GFR 43 mL/min (>=60)
[2025-03-25] MEDS: Magnesium Sulfate 2 GM/50 mL 2 GM in Premix Bag 1 BAG IV ONE (20:14)
[2025-03-25] MEDS: Sodium Chloride 0.9% 10 ML Syringe FLUSH PRN (20:14)
[2025-03-25] MEDS: Furosemide 40 MG/4 ML VIAL IVPUSH ONE (20:14)
== END 2025-03-25 20:45 ==
LOC: LL.ED 16:55
DX: I13.0 Hypertensive heart and chronic kidney disease with heart failure and stage 1 through stage 4 chronic kidney disease, or unspecified chronic kidney disease (principal); I50.9 Heart failure, unspecified; N18.9 Chronic kidney disease, unspecified; I48.91 Unspecified atrial fibrillation; I25.10 Atherosclerotic heart disease of native coronary artery without angina pectoris; I25.2 Old myocardial infarction; E11.21 Type 2 diabetes mellitus with diabetic nephropathy; E11.22 Type 2 diabetes mellitus with diabetic chronic kidney disease; E11.40 Type 2 diabetes mellitus with diabetic neuropathy, unspecified; K21.9 Gastro-esophageal reflux disease without esophagitis; Z88.0 Allergy status to penicillin; Z88.8 Allergy status to other drugs, medicaments and biological substances; Z79.899 Other long term (current) drug therapy; Z79.82 Long term (current) use of aspirin; Z79.51 Long term (current) use of inhaled steroids; Z79.84 Long term (current) use of oral hypoglycemic drugs
CPT/HCPCS: 36415; 71046; 80053; 83735; 83880; 84484; 85025; 85610; 93005; 93010; 96374; 99284; 99285-25; J1938